=== PATIENT | female | born 1950 | race Caucasian/White ===

== ENCOUNTER 2023-03-18 13:20 | Outpatient (REF) | payer MEDICARE, BC, SELFPAY | END 2023-03-18 13:21 | disposition home or self-care (01) | LOC: NCHCN 13:20 | PROVIDERS: PCP Family Medicine; Visit Provider Family Medicine | DX: R39.9 Unspecified symptoms and signs involving the genitourinary system (principal) | CPT/HCPCS: 87086 ==

== ENCOUNTER 2024-05-14 10:58 | Outpatient (REF) | payer MEDICARE, BC, SELFPAY ==
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
--- OUTSIDE RECORDS SUMMARY | 2024-05-14 11:09 | XMS_ITS | Clinical Summary ---
Author Organization [facility] Address [address] [place] [address] Care Team Providers Care Pasting Inspector Name Role Phone Pema Antoine MD Primary Care Provider [phone] Allergies Active Allergy Reactions Criticality Noted Date Comments Latex Rash 07/08/2014 Latex, Natural Rubber 07/04/2010 rash Medications Medication Sig Dispensed Refills Start Date End Date Status IBUPROFEN (ADVIL ORAL) Take by mouth. Active aspirin 81 mg EC tablet Take 81 mg by mouth daily. Active Carboxymethylcellulos e Sodium (THERA TEARS) 0.25 % Drop Apply 1 Drop to eye 4 times daily. Active DOCOSAHEXANOIC ACID/EPA (FISH OIL ORAL) Take 1 Cap by mouth daily. Active Lutein 20 mg capsule Take 20 mg by mouth daily. Active desoximetasone (TOPICORT) 0.25 % cream Apply topically 2 times daily. 30 g 11 06/04/2014 Active doxycycline (VIBRAMYCIN) 50 mg capsule Take 50 mg by mouth every 48 hours. 03/16/2022 Active metoprolol SUCCinate (TOPROL-XL) 50 mg tablet Take 50 mg by mouth daily. 02/28/2022 Active simvastatin (ZOCOR) 80 mg tablet Take 80 mg by mouth daily. 02/23/2022 Active losartan (COZAAR) 100 mg tablet Take 100 mg by mouth daily. 01/29/2022 Active Active Problems Patient Care Coordination No te Formatting of this note migh t be different from the original. Mail returned due to temporarily away Problem Noted Date Diagnosed Date Macular degeneration, right eye 07/11/2015 Overview: Dr. Andrew Tang [place] [phone] Hypertension 01/30/2012 Overview: At goal Hyperlipidemia 07/27/2011 Overview: At goal Immunizations Name Administration Dates Next Due Influenza Vaccine Quad (AFLURIA) PF 0.5 ml IM (3 yrs+) 07/11/2015 Pneumococcal Conjugate Vacci ne 13-Valent (PCV13) (PREVNAR-13) 0.5 mL IM (6 wks+) 07/11/2015 Pneumococcal Polysaccharide (PPSV23) Vaccine (PNEUMOVAX-23) =>2YO SQ/IM 07/27/2011 Td 03/08/2003 Tdap Vaccine =>7YO IM 07/01/2013 Zostavax (Zoster Vaccine, Live) SQ 06/05/2012 Surgical History Surgery Date Site/Laterality Comments CATARACT REMOVAL WITH IMPLANT 06/2011 right eye KNEE ARTHROSCOPY Arthroscopy, knee INTRAOCULAR LENS PROSTHESIS INSERTION CATARACT REMOVAL Medical History Medical History Date Comments Hypertension Cataract Family History Medical History Relation Comments Coronary Artery Disease Brother Coronary Artery Disease Father Heart Disease Father Breast Cancer Maternal Grandmother Cataract Mother *Other(comment) Sister Cancer Sister colon Relation Status Comments Brother Father Maternal Grandmother Mother Sister Social History Tobacco Use Types Packs/Day Years Used Date Smoking Tobacco: Former Cigarettes 1.5 20 1 - 07/11/1987 Smokeless Tobacco: Never Tobacco Cessation:Counseling Given: Not Answered Alcohol Use Standard Drinks/Week Comments Yes 6 (1 standard drink = 0.6 oz pur e alcohol) Interpersonal Safety Answer Date Record ed Physically Hurt Never 05/01/2020 Verbally Threaten Not on file 05/01/2020 Sex and Gender Information Value Date Recorded Sex Assigned at Not on file Gender Identity Not on file Sexual Orientation Not on file Obstetrics History Last Filed Vital Signs Vital Sign Reading Time Taken Comments Blood Pressure 150/82 03/31/2022 1504 EDT Pulse 111 03/31/2022 1504 EDT Temperature 36.2 ??C (97.1 ??F) 03/31/2022 1504 EDT Respiratory Rate 20 03/31/2022 1504 EDT Oxygen Saturation 96% 03/31/2022 1504 EDT Inhaled Oxygen Concentration - - Weight 62.1 kg (137 lb) 03/14/2021 1009 EDT Height 162.6 cm (5' 4) 03/14/2021 1009 EDT Body Mass Index 23.52 03/14/2021 1009 EDT Plan of Treatment Health Maintenance Due Date Last Done Comments Hepatitis C Screen 1950 RSV Immunization ( o r 60+ Years) (1 - 1-dose 60+ series) 2008 Fall Risk Screening 07/11/2016 07/11/2015 Creatinine (Kidney Test) 08/17/2017 08/17/2016 COVID-19 Vaccine (2022-2 4 season) 2023 Colonoscopy (Colon Cancer Screening) 07/03/2023 07/03/2018, 07/03/2018, 06/28/2015, Additional history exists Goals Goal Patient Goal Type Associated Problems Recent Progress Patient-Stated? Author Blood Pressure < 140/90 Blood Pressure 150/82(03/31 15:04 EDT) No Velma Mae MD Blood Pressure < 140/90 Blood Pressure Hypertension 150/82(03/31 15:04 EDT) No Velma Mae MD LDL < 130 Result Component Hyperlipidemia No Velma Mae MD Procedures Procedure Name Priority Date/Time Associated Diagnosis Comments COLONOSCOPY PROCEDURE Routine 07/03/2018 COMPREHENSIVE METABOLIC PANEL (CMP) Routine 08/17/2016 from Last 3 Months or Most Recently Relevant to Health Maintenance Results * COLONOSCOPY PROCEDURE (07/03/2018) Colonoscopy [facility] Colonoscopy, External Diminutive sigmoid polyp [facility] Comment:pathology report-tub ular adenoma Anatomical Region Laterality Modality Endoscopy Historical Provider GI PROCEDURE GRISEL LIGHT * COMPREHENSIVE METABOLIC PANEL (CMP) (08/17/2016) GFR, Calculated, External 65 EXTERNAL LAB Glucose, Serum, External 101 EXTERNAL LAB Albumin, External 4.3 EXTERNAL LAB Total Alkaline Phosphatase, External 86 EXTERNAL LAB ALT, External 14 EXTERNAL LAB AST, External 25 EXTERNAL LAB BUN, External 41 EXTERNAL LAB Calculated Calcium, External EXTERNAL LAB Calcium, External 9.9 EXTERNAL LAB Chloride, External 104 EXTERNAL LAB CO2, External 27 EXTERNAL LAB Creatinine, External 1.02 EXTERNAL LAB Fasting?, External EXTERNAL LAB Potassium, External 4.7 EXTERNAL LAB Sodium, External 140 EXTERNAL LAB Total Protein, External 7.0 EXTERNAL LAB Bilirubin, Total, External 1.3 EXTERNAL LAB Blood specimen (specimen) 08/17/2016 Historical Provider CHEMISTRY & BLOOD GAS ORDERABLES EXTERNAL LAB from Last 3 Months or Most Recently Relevant to Health Maintenance Nury Roberts A Personal/Family Self 1950 [address] [place] [address] [email or web address] [place] [address] Nury Roberts A Personal/Family Self 1950 [address] [facility] [[email or web address]] [place] [address] Nury Roberts A Personal/Family Self 1950 [address] [place] [address] Nury Roberts Cecy Personal/Family Self 1950 [address] [place] [address] Care Teams Pasting Inspector Relationship Specialty Start Date End Date Pema Antoine MD [address] [place] [address] PCP - General 07/04/22
--- OUTSIDE RECORDS SUMMARY | 2024-05-14 11:10 | XMS_ITS | Referral Summary ---
Author Organization [facility] Address [address] [place] [address] Care Team Providers Care Verification Lead Name Role Phone Pema Antoine MD Primary Care Provider [phone] Allergies Active Allergy Reactions Criticality Noted Date [...] right eye 07/11/2015 Overview: Dr. Andrew Tang [place] [phone] Hypertension 01/30/2012 Overview: At goal Hyperlipidemia 07/27/2011 Overview: At goal Immunizations Name Administration Dates Next Due Influenza Vaccine Quad (AFLURIA) PF 0.5 ml IM (3 yrs+) 07/11/2015 Pneumococcal Conjugate Vacci ne 13-Valent (PCV13) (PREVNAR-13) 0.5 mL IM (6 wks+) 07/11/2015 Pneumococcal Polysaccharide (PPSV23) Vaccine (PNEUMOVAX-23) =>2YO SQ/IM 07/27/2011 Td 03/08/2003 Tdap Vaccine =>7YO IM 07/01/2013 Zostavax (Zoster Vaccine, Live) SQ 06/05/2012 Social History Tobacco Use Types Packs/Day Years [...] on file Sexual Orientation Not on file Last Filed Vital Signs Vital Sign Reading [...] Body Mass Index 23.52 03/14/2021 1009 EDT Functional Status Functional Status Response Date of Assess ment Because of a physical, menta l, or emotional condition, does this person have difficulty doing errands alone such as visiting a doctor's office or shopping? No 07/11/2015 Cognitive Status Response Date of Assessm ent Because of a physical, menta l, or emotional condition, does this person have serious difficulty concentrating, remembering, or making decisions? No 07/11/2015 Plan of Treatment Not on file Goals Goal Patient Goal Type Associated Problems [...] Health Maintenance Results * COLONOSCOPY PROCEDURE (07/03/2018) Pathologist [facility] Colonoscopy [facility] Colonoscopy, External Diminutive sigmoid polyp [facility] Comment:pathology report-tub ular adenoma Anatomical Region Laterality Modality Endoscopy Historical Provider GI PROCEDURE GRISEL LIGHT * COMPREHENSIVE METABOLIC PANEL (CMP) (08/17/2016) Pathologist [facility] GFR, Calculated, External 65 EXTERNAL LAB Glucose, [...] or Most Recently Relevant to Health Maintenance Armando, Nury A Personal/Family Self [address] [facility] [address] [place] [address] Armando, Nury A Personal/Family Self [address] [facility] [address] [place] [address] Armando, Nury A Personal/Family Self 1950 [address] [place] [address] Care Teams Verification Lead Relationship Specialty Start Date End Date Pema Antoine MD [address] [place] [address] (work) [facility] - General 07/04/22
--- OUTSIDE RECORDS SUMMARY | 2024-05-14 11:10 | XMS_ITS | Encounter Summary ---
Author Organization [facility] Address [address] [place] [address] Care Team Providers Care County Nurse Name Role Phone Rusty Malik MD Primary Care Provider [phone] Unknown, Provider Primary Care Provider [phone] Encounter Details Date Type Department Care Team (Late st Contact Info) Description 07/03/2018 Historical Results Only [facility] - Main [address] [phone] Jaun Patton MD Social History Tobacco Use Types Packs/Day Years Used Date Smoking Tobacco: Former Cigarettes 1.5 20 1 - 07/11/1987 Alcohol Use Standard Drinks/Week Comments Yes 6 (1 standard drink = 0.6 oz pur e alcohol) Sex and Gender Information Value Date Recorded Sex Assigned at Not on file Gender Identity Not on file Sexual Orientation Not on file documented as of this encounter Functional Status Functional Status Response Date of [...] concentrating, remembering, or making decisions? No 07/11/2015 documented as of this encounter Plan of Treatment Not on file documented as of this encounter Goals Goal Patient Goal Type Associated Problems Recent Progress Patient-Stated? Author Blood Pressure < 140/90 Blood Pressure 150/82(03/31 15:04 EDT) No Velma Mae MD Blood Pressure < 140/90 Blood Pressure Hypertension 150/82(03/31 15:04 EDT) No Velma Mae MD LDL < 130 Result Component Hyperlipidemia No Velma Mae MD documented as of this encounter Procedures Procedure Name Priority Date/Time Associated Diagnosis Comments SURGICAL PATHOLOGY Routine 07/03/2018 11 :58 EDT documented in this encounter Results * SURGICAL PATHOLOGY (07/03/2018 11:58 EDT) 07/03/2018 11:5 8 EDT 07/03/2018 11:58 EDT Narrative [facility] - 07/04/2018 12:28 EDT ----- ------- Name: NURY KAMARA ?: [birth year] ?Age/Sex: 68/F ?Unit#: [id number] ? Loc: END ? Status: DEP CLI ?? Reg Date: 07/03/18 ? Pt.Phone Number: ? ----- ------- Specimen: [id number] ? STATUS: SOUT ?Spec Date:07/03/18 ? Physician Copies: ?Jaun Patton MD ?? Tissues: A ?? Endoscopy specimen (SIGMOID COLON) ? Velma Mae ?Stoney Gutierrez MD CPT: 71435 ?? Units: ??1 ?FINAL DIAGNOSIS ? SIGMOID COLON, POLYP, BIOPSY; ? -Tubular adenoma ? GROSS DESCRIPTION ? Received in formalin labeled with the patients name and sigmoid polyp is a ? single mucosal tissue fragment measuring 0.3, e. s. 1 NM ?? PREOP DX/CLINICAL HISTORY ?HX POLYPS, + FAMILY HX Signed ____(signature on file)____ Nissa Escobar M.D. 07/04/18 ? By the signature above, the attending physician certifies that he/she has personally conducted a gross and/or microscopic examination of the described specimens and rendered or confirmed the above diagnosis. Test Performed by [facility], [address] [address] Machine Long Goods Helper: Justyna Altamirano MD PHD ----- ------- Jaun Patton MD PATHOLOGY ORDERABLES [facility] documented in this encounter Visit Diagnoses Not on filedocumented in this encounter Care Teams County Nurse Relationship Specialty Start Date End Date Rusty Malik MD PCP - General 12/05/16 08/28/18 Unknown, Provider, PCP - General 08/29/18 07/03/22 documented as of this encounter
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
--- OUTSIDE RECORDS SUMMARY | 2024-05-14 11:10 | XMS_ITS | Encounter Summary ---
Author Organization [facility] Address [address] [place] [address] Care Team Providers Care Birth Attendant Name Role Phone Rusty Malik MD Primary Care Provider [phone] Reason for Visit * Reason Onset Date Comments Letter for School/Work 02/09/2017 Encounter Details Date Type Department Care Team (Late st Contact Info) Description 02/09/[address] [place] [address] [id number] Rusty Malik MD [facility] [place] [phone] Letter for School/Work Social History Tobacco Use Types Packs/Day Years [...] No 07/11/2015 documented as of this encounter Miscellaneous Notes * Telephone Encounter - Dyan Loja - 02/11/2017 1657 EDT Patient called and gave new address.Back in [place]. * Telephone Encounter - Dyan Loja - 02/09/2017 1017 EDT Reason for Call: Letter for School/Work Returned letter, stating temporarily away. Left message with update address. Any [facility] can take the information. Thanks. Dyan Loja 02/09/2017 10:17 documented in this encounter Plan of Treatment [...] documented as of this encounter Visit Diagnoses Not on filedocumented in this encounter Care Teams Birth Attendant Relationship Specialty Start Date End Date Rusty Malik MD PCP - General 12/05/16 08/28/18 documented as of this encounter
--- OUTSIDE RECORDS SUMMARY | 2024-05-14 11:10 | XMS_ITS | Encounter Summary ---
Author Organization [facility] Address [address] [place] [address] Care Team Providers Care Brake Coupler Dinkey Name Role Phone Velma Mae MD Primary Care Provid er Encounter Details Date Type Department Care Team (Late st Contact Info) Description 07/14/2015 Results Only [address] [id number] Velma Mae MD [address] [place] [phone] Social History Tobacco Use Types Packs/Day Years [...] Procedure Name Priority Date/Time Associated Diagnosis Comments BASIC METABOLIC PANEL ([facility]) Routine 07/14/2015 8:18 EDT LIPID PROFILE (INCLUDES CHOLESTEROL, TRIGLYCERIDES, HDL, LDL) Routine 07/14/2015 8:18 EDT documented in this encounter Results * (ABNORMAL) LIPID PROFILE (INCLUDES CHOLESTEROL, TRIGLYCERIDES, HDL, LDL) (07/14/2015 8:18 EDT) Triglycerides, External 106 35 - 150 mg/dL [facility] Cholesterol, External 212(H) 120 - 200 mg/dL [facility] Chol/HDL Ratio, External 3.8 0 - 4.5 [facility] Comment: DESIRABLE RATIO IS LESS THAN 4.1 PATIENTS ARE CONSIDERED AT RISK: WOMEN RATIO >5 MEN RATIO >6 Fasting?, External Yes [facility] HDL, External 55 40 - 60 mg/dL [facility] LDL, External 136(H) 60 - 100 mg/dL [facility] Non HDL Chol, External 157 mg/dl [facility] Comment: Desirable: ?Less than 130 Borderline High: ??130-159 High: ? 160-189 Very High: ?Greater than or equal to 190 07/14/2015 8:18 EDT 07/14/2015 8:19 EDT Narrative [facility] - 07/14/2015 10:21 EDT Does PT Have a Latex Allergy? YES Velma Mae MD CHEMISTRY & BLOOD GAS ORDERABLES [facility] * (ABNORMAL) BASIC METABOLIC PANEL ([facility]) (07/14/2015 8:18 EDT) Bun, External 29(H) 7 - 18 mg/dL [facility] Calcium, External 8.9 8.5 - 10.1 mg/dL [facility] Chloride, External 107 98 - 107 mEq/L [facility] CO2, External 30 21 - 32 mEq/L [facility] Creatinine, External 0.94 0.5 - 1.3 mg/dL [facility] GFR, Kahlil/Est., External 59 [facility] Comment: Stage 3: Moderate renal impairment is defined as GFR 30-59 Multiply result by 1.210 for patients. eGFR calculated using the IDMS-traceable MDRD Study Equation. ??(effective 08/02/2014) Glucose, Serum, External 94 70 - 100 mg/dL [facility] Potassium, External 4.5 3.5 - 5.0 mEq/L [facility] Sodium, External 142 135 - 145 mEq/L [facility] 07/14/2015 8:18 EDT 07/14/2015 8:19 EDT Narrative [facility] - 07/14/2015 10:21 EDT Does PT Have a Latex Allergy? YES Velma Mae MD CHEMISTRY & BLOOD GAS ORDERABLES [facility] documented in this encounter Visit Diagnoses Not on filedocumented in this encounter Care Teams Brake Coupler Dinkey Relationship Specialty Start Date End Date Velma Mae MD PCP - General 06/08/15 12/04/16 documented as of this encounter
--- OUTSIDE RECORDS SUMMARY | 2024-05-14 11:10 | XMS_ITS | Encounter Summary ---
Author Organization [facility] Address [address] [place] [address] Care Team Providers Care Wood Heel Flap Trimmer Name Role Phone Velma Mae MD Primary Care Provid er Reason for Visit * Reason Comments Other Encounter Details Date Type Department Care Team (Late st Contact Info) Description 06/23/[address] [address] Shaun Valero MD Other Social History Tobacco Use Types Packs/Day Years Used Date Smoking Tobacco: Former Alcohol Use Standard Drinks/Week Comments Yes 1 (1 standard drink = 0.6 oz pur e alcohol) Sex and Gender Information Value Date Recorded Sex Assigned at Not on file Gender Identity Not on file Sexual Orientation Not on file documented as of this encounter Ordered Prescriptions Prescription Sig Dispensed Refills Start Date End Da te metoprolol XL (TOPROL-XL) 25 mg tablet TAKE 1 TABLET BY MOUTH EVERY DAY 90 Tab 0 06/23/2015 09/13/2015 simvastatin (ZOCOR) 40 mg tablet TAKE 1 TABLET BY MOUTH EVERY EVENING 90 Tab 0 06/23/2015 09/13/2015 documented in this encounter Miscellaneous Notes * Telephone Encounter - Sammi Andujar RN - 06/23/2015 0931 EDT Medication(s) Requested: zocor & metoprolol Pharmacy: [facility] Last Refill Date: 06/04/14 Last Visit Date: 06/04/15 Labs done @ this visit. Next Visit Date: 07/11/2015 Is patient out of medication? Unknown Will be seeing new Dr at upcoming appt. Refill done for 90/ 0 refills Sammi Andujar RN 06/23/2015 9:31 documented in this encounter Plan of Treatment Not on file documented as of this encounter Visit Diagnoses Not on filedocumented in this encounter Discontinued Medications Medication Sig Discontinue Reason Start Date End Da te simvastatin (ZOCOR) 40 mg tablet Take 1 Tab by mouth every evening. Reorder 06/04/2014 06/23/2015 metoprolol XL (TOPROL-XL) 25 mg tabletIndications:Hyperte nsive disorder Take 1 Tab by mouth daily. Reorder 06/04/2014 06/23/2015 documented as of this encounter Care Teams Wood Heel Flap Trimmer Relationship Specialty Start Date End Date Velma Mae MD PCP - General 06/08/15 12/04/16 documented as of this encounter
--- OUTSIDE RECORDS SUMMARY | 2024-05-14 11:10 | XMS_ITS | Encounter Summary ---
Author Organization [facility] Address [address] [place] [address] Care Team Providers Care Shoelace Tipping Machine Operator Name Role Phone Rusty Malik MD Primary Care Provider [phone] Encounter Details Date Type Department Care Team (Latest Contact Info) Description 07/03/2018 9:37 EDT - 07/03/2018 23:[address] [facility] [address] [place] [address] Unknown, Provider, Discharge Disposition: Home or Self Care Social History Tobacco Use Types Packs/Day Years [...] No 07/11/2015 documented as of this encounter Medications at Time of Discharge Medication Sig Dispensed Refills Start Date End Date aspirin 81 mg EC tablet Take 81 mg by mouth daily. Carboxymethylcellulose Sodium (THERA TEARS) 0.25 % Drop Apply 1 Drop to eye 4 times daily. desoximetasone (TOPICORT) 0.25 % cream Apply topically 2 times daily. 30 g 11 06/04/2014 DOCOSAHEXANOIC ACID/EPA (FISH OIL ORAL) Take 1 Cap by mouth daily. IBUPROFEN (ADVIL ORAL) Take by mouth. Lutein 20 mg capsule Take 20 mg by mouth daily. DOXYCYCLINE MONOHYDRATE ORAL Take 50 mg by mouth every 48 hours. 4 gtts both eyes 4xs a day 03/20/2022 metoprolol XL (TOPROL-XL) 25 mg tablet TAKE 1 TABLET BY MOUTH EVERY DAY 90 Tab 3 09/13/2015 03/20/2022 simvastatin (ZOCOR) 40 mg tablet TAKE 1 TABLET BY MOUTH EVERY EVENING 90 Tab 3 09/13/2015 03/20/2022 documented as of this encounter Discharge Disposition Disposition Code Departure Means Destination Home or Self Penitentiary documented in this encounter Plan of Treatment Not on file documented as of this encounter Goals Goal Patient Goal Type Associated Problems Recent Progress Patient-Stated? Author Blood Pressure < 140/90 Blood Pressure 150/82(03/31 15:04 EDT) No Velam Mae MD Blood Pressure < 140/90 Blood Pressure Hypertension 150/82(03/31 15:04 EDT) No Velma Mae MD LDL < 130 Result Component Hyperlipidemia No Velma Mae MD documented as of this encounter Visit Diagnoses Not on filedocumented in this encounter Care Teams Shoelace Tipping Machine Operator Relationship Specialty Start Date End Date Rusty Malik MD PCP - General 12/05/16 08/28/18 documented as of this encounter
--- OUTSIDE RECORDS SUMMARY | 2024-05-14 11:10 | XMS_ITS | Encounter Summary ---
Author Organization [facility] Address [address] [place] [address] Care Team Providers Care Textile Stylist Name Role Phone Rusty Malik MD Primary Care Provider [phone] Encounter Details Date Type Department Care Team (Late st Contact Info) Description 04/01/[address] [address] Christiano Epstein LPN [address] [place] [address] Social History Tobacco Use Types Packs/Day Years [...] Procedure Name Priority Date/Time Associated Diagnosis Comments MAMMOGRAPHY, EXTERNAL Routine 03/31/2018 documented in this encounter Results * MAMMOGRAPHY, EXTERNAL (03/31/2018) Mammography, External Bilateral Breast-Catego ry 1-Negative. [facility] Anatomical Region Laterality Modality Other Historical Provider MD [facility] OTHER [facility]AGING ORDERABLES documented in this encounter Visit Diagnoses Not on filedocumented in this encounter Care Teams Textile Stylist Relationship Specialty Start Date End Date Rusty Malik MD PCP - General 12/05/16 08/28/18 documented as of this encounter
--- OUTSIDE RECORDS SUMMARY | 2024-05-14 11:10 | XMS_ITS | Encounter Summary ---
Author Organization [facility] Address [address] [place] [address] Care Team Providers Care Senior Dentist Name Role Phone Rusty Malik MD Primary Care Provider [phone] Unknown, Provider Primary Care Provider [phone] Pema Antoine MD Primary Care Provider [phone] Reason for Visit * Reason Onset Date Comments Medications Refill 12/22/2016 Encounter Details Date Type Department Care Team (Late st Contact Info) Description 12/22/[address] [address] Velma Mae MD [address] [place] [phone] Medications Refill Social History Tobacco Use Types Packs/Day Years [...] * Telephone Encounter - Dyan Loja - 01/04/2017 1304 EDT Patient called back and is all set. She had a physical and her prescription filled in [place]. She was seen by Dr. Chacko. Patient will have results sent to our office. * Telephone Encounter - Nimco Vegas RN - 01/04/2017 0906 EDT Left message for patient to call back to schedule an annual physical exam. * Telephone Encounter - Alysia Wallace RN - 12/28/2016 1614 EDT Message again left to call back to schedule an appointment so this medication can be refilled. * Telephone Encounter - Alysia Wallace RN - 12/24/2016 0935 EDT Medication(s) Requested: Simvastatin (Zocor) 40 mg tablet Preferred Pharmacy: [facility] - [place], [place] Is patient out of medication? Unknown Last Refill Date: 09/13/15 - 90 tabs with 3 refills Last Visit Date with Ordering Provider: 07/11/15 Next Visit Date as it relates to the requested medication: None scheduled Last Related Labs Date: 07/14/15 - Lipid Profile Message left to call back to schedule an appointment. Alysia Wallace RN 12/24/2016 9:35 documented in this encounter Plan of Treatment [...] on filedocumented in this encounter Care Teams Senior Dentist Relationship Specialty Start Date End Date Rusty Malik MD PCP - General 12/05/16 08/28/18 Unknown, ProviderMD PCP - General 08/29/18 07/03/22 Pema Antoine MD [address] [place] [id number] PCP - General 07/04/22 documented as of this encounter
--- OUTSIDE RECORDS SUMMARY | 2024-05-14 11:10 | XMS_ITS | Encounter Summary ---
Author Organization [facility] Address [address] [place] [address] Care Team Providers Care Portable Track Line Marker Name Role Phone Shaun Valero MD Primary Care Provider Unav ailable Reason for Visit * Reason Onset Date Comments Medications Refill 06/25/2013 Encounter Details Date Type Department Care Team (Late st Contact Info) Description 06/25/[address] [address] Shaun Valero MD Medications Refill Social History Tobacco Use Types Packs/Day Years Used Date Smoking Tobacco: Former Alcohol Use Standard Drinks/Week Comments Yes 8.3 (1 standard drink = 0.6 oz p ure alcohol) Sex and Gender Information Value Date Recorded Sex Assigned at Not on file Gender Identity Not on file Sexual Orientation Not on file documented as of this encounter Ordered Prescriptions Prescription Sig Dispensed Refills Start Date End Da te simvastatin (ZOCOR) 40 mg tablet Take 1 Tab by mouth every evening. 90 Tab 0 06/25/2013 07/01/2013 documented in this encounter Miscellaneous Notes * Telephone Encounter - Alvina Candelaria RN - 06/25/2013 1036 EDT Refilled x 90 days. * Telephone Encounter - Carissa Verde - 06/25/2013 1026 EDT Pt is leaving for [place] around the middle of July, she is asking for rx just enough to get her through until she leaves. She has enough for 5 days. She did make an appt for 07/01 for f/u documented in this encounter Plan of Treatment Not on file documented as of this encounter Visit Diagnoses Not on filedocumented in this encounter Discontinued Medications Medication Sig Discontinue Reason Start Date End Da te simvastatin (ZOCOR) 40 mg tablet Take 1 Tab by mouth every evening. Reorder 01/30/2012 06/25/2013 documented as of this encounter Care Teams Portable Track Line Marker Relationship Specialty Start Date End Date Shaun Valero MD PCP - General 08/16/09 06/07/15 documented as of this encounter
--- OUTSIDE RECORDS SUMMARY | 2024-05-14 11:10 | XMS_ITS | Encounter Summary ---
Author Organization [facility] Address [address] [place] [address] Care Team Providers Care Senior Information Security Consultant Name Role Phone Unknown, Provider Primary Care Provider Reason for Visit * Reason Comments Follow-up Encounter Details Date Type Department Care Team (Late st Contact Info) Description 06/15/2021 14:45 EDT Office Visit [facility] [address] [place], [place] [id number] Sourav Nathan MD [address] [facility] [address] [place] [address] Right carpal tunnel syndrome (Primary Dx); Dupuytren's contracture of right hand Social History Tobacco Use Types Packs/Day Years [...] on file Sexual Orientation Not on file COVID-19 Exposure Response Date Recorded In the last month, have you been in contact with someone who was confirmed or suspected to have Coronavirus / COVID-19? No / Unsure 06/15/2021 14:40 EDT documented as of this encounter Last Filed Vital Signs Vital Sign Reading Time Taken Comments Blood Pressure - - Pulse - - Temperature 36.8 ??C (98.2 ??F) 06/15/2021 1442 EDT Respiratory Rate - - Oxygen Saturation - - Inhaled Oxygen Concentration - - Weight - [...] No 07/11/2015 documented as of this encounter Progress Notes * Sourav Nathan MD - 06/15/2021 1445 EDTAssociated Order(s): Hand/Upper Extremity Injection/Arthrocentesis: R small finger Post-Procedure Diagnose(s): Dupuytren's contracture of right hand Patient presents in clinic today for follow up of her right hand dupuytren's contracture. She was seen on 03/14/21 for pain and received a carpal tunnel injection to her right hand. She also had an aponeurotomy in the same visit without complication. She c.o her index, middle and ring fingers waking her at night feeling like cardboard. She cannotopen jars, has aches and pains in the evening. Orthopaedic Surgery Office Note Nury Roberts [phone] Subjective. Patient returns wishing to have a touch up to the right small finger Dupuytren's aponeurotomy that she had earlier this year and wishing to discuss treatment options regarding some carpaltunnel that seems to bother after her 2- hour motorcycle rides. She is also an avid golfer notes that she wakes up with the thumb index and long finger feeling a bit like cardboard. She is going down to [place] in less than a month. She has not actually tried any braces she did have a carpal tunnel injection back in February when we did her Dupuytren's release Patient Active Problem List Diagnosis ??? Hyperlipidemia ??? Hypertension ??? Macular degeneration, right eye Current Outpatient Medications Medication ??? aspirin 81 mg EC tablet ??? Carboxymethylcellulose Sodium (THERA TEARS) 0.25 % Drop ??? desoximetasone (TOPICORT) 0.25 % cream ??? DOCOSAHEXANOIC ACID/EPA (FISH OIL ORAL) ??? DOXYCYCLINE MONOHYDRATE ORAL ??? IBUPROFEN (ADVIL ORAL) ??? Lutein 20 mg capsule ??? metoprolol XL (TOPROL-XL) 25 mg tablet ??? simvastatin (ZOCOR) 40 mg tablet No current facility-administered medications for this visit. Allergies Allergen Reactions ??? Latex Rash ??? Latex, Natural Rubber rash A 10 point ROS was completed. All are negative except noted in HPI.The past medical, family and social history have been reviewed in the patient chart. I spent time preparing in advance of the visit today, which included obtaining and reviewing prior history and notes from the primary care providerand/or referring providers, as well as reviewing any relevant prior imaging and tests, which I alsoindependently interpreted today Objective: Patient Vitals for the past 24 hrs: Temp 06/15/21 1442 36.8 ??C (98.2 ??F) On physical exam, the patient is found to be a pleasant and cooperative female who appears to be alert and oriented x 3. She is well-developed, well-nourished and in no significant distress. Breathing is unlabored. Skin is warm, pink and dry to inspection and palpation. Neurovascularly intact with good capillary refill. Examination shows there is a ulnar rope that has reformed is a cord between the palmar digital and PIP flexion crease of the small finger contributing to a 30 degree PIP contracture. Her provocative test for carpal tunnel however are negative here in the office today includingTinel's median nerve compression Durkan's wrist flexion and wrist extension test. She has no significant thenar wasting or atrophy. Assessment/Plan: Since her carpal tunnel cannot be provoked at this point it does not seem severe enough to warrant surgery I do think a night splint however would help since that seems to be relatedto her symptoms just at night and fairly mild. This was set up for her today and for the small finger we consented her for a aponeurotomy. Procedure: Hand/Upper Extremity Injection/Arthrocentesis: R small finger for Dupuytren's contracture on 06/15/2021 14:45 Medications: 40 mg triamcinolone acetonide 40 mg/mL The patient was informed of treatment options for Dupuytren's including observation, collagenase injection, surgical resection, apponeurotomy, amputation, and skin grafting. Risks of apponeurotomy specifically including infection, tendon rupture, stiffness, skin tear, recurrence, incomplete release, nerve injury, tendon injury, and wound dehiscence were reviewed with the patient. A timeout was performed a thorough skin prep with ChloraPrep was performed the hand was marked over the palpable cords and symptomatic regions away from the flexion creases for release. The marked areas were treated with Marcaine and lidocaine skin wheal injections then 25-gauge needle transections through the pathologic cord and manipulations to straighten the joint. A few drops of Kenalog were injected into allof the intact apponeurotomy portal sites to minimize recurrence and scarring. Band-Aids were applied. The patient was advised to avoid any heavy activities for 48 hours to rest elevate ice and take anti-inflammatories. The patient was instructed to call us for any concerns with redness drainage increasing pain or swelling. Patient tolerated procedure well. One quarter of a 1 mL 40 mg Kenalog injected into the 2 sites where the release was performed completely correcting the PIP contracture. Shewas given a sterile Band-Aid over the digit and will follow up in the spring when she returns from [facility]. Sourav Nathan MD 06/15/21 16:23 documented in this encounter Plan of Treatment [...] Procedure Name Priority Date/Time Associated Diagnosis Comments HAND/UPPER EXTREMITY INJECTION/ARTHROCEN TESIS Routine 06/15/2021 14:45 EDT Dupuytren's contracture of right hand documented in this encounter Results * [place] INJECTION ENZYME PALMAR FASCIAL CORD (06/15/2021 14:45 EDT) Narrative [facility] POINT [facility] CARE - 06/15/2021 14:45 EDT Sourav Nathan MD ? 06/15/2021 16:28 Hand/Upper Extremity Injection/Arthrocentesis: R small finger for Dupuytren's contracture on 06/15/2021 14:45 Medications: 40 mg triamcinolone acetonide 40 mg/mL Sourav Nathan MD PROCEDURE /MINOR SURGICAL ORDERABLES [facility] POINT OF CARE documented in this encounter Visit Diagnoses Diagnosis Right carpal tunnel syndrome- Primary Carpal tunnel syndrome Dupuytren's contracture of right hand Contracture of palmar fascia documented in this encounter Administered Medications Inactive Administered Medications - up to 3 most recent administrations Medication Order MAR Action Action Date Dose Rate Site triamcinolone acetonide (KENALOG-40) injection 40 mg 40 mg, other, Once PRN Procedure, 1 dose, Starting on Connie 06/15/21 at 1445, Until Connie 06/15/21 at 1445, Routine Given 06/15/2021 14:45 EDT 40 mg documented in this encounter Care Teams Senior Information Security Consultant Relationship Specialty Start Date End Date Unknown, Provider, PCP - General 08/29/18 07/03/22 documented as of this encounter
--- OUTSIDE RECORDS SUMMARY | 2024-05-14 11:10 | XMS_ITS | Encounter Summary ---
Author Organization [facility] Address [address] [place] [address] Care Team Providers Care Hospital Security Officer Name Role Phone Rusty Malik MD Primary Care Provider [phone] Encounter Details Date Type Department Care Team (Late st Contact Info) Description 07/09/[address] [address] Christiano Epstein LPN [address] [place] [address] Social History Tobacco Use Types Packs/Day Years [...] Associated Diagnosis Comments COLONOSCOPY PROCEDURE Routine 07/03/2018 documented in this encounter Results * COLONOSCOPY PROCEDURE (07/03/2018) Colonoscopy [facility] Colonoscopy, External Diminutive sigmoid polyp [facility] Comment:pathology report-tub ular adenoma Anatomical Region Laterality Modality Endoscopy Historical Provider GI PROCEDURE GRISEL LIGHT documented in this encounter Visit Diagnoses Not on filedocumented in this encounter Care Teams Hospital Security Officer Relationship Specialty Start Date End Date Rusty Malik MD PCP - General 12/05/16 08/28/18 documented as of this encounter
--- OUTSIDE RECORDS SUMMARY | 2024-05-14 11:10 | XMS_ITS | Encounter Summary ---
Author Organization [facility] Address [address] [place] [address] Care Team Providers Care Tractor Mechanic Name Role Phone Velma Mae MD Primary Care Provid er Rusty Malik MD Primary Care Provider [phone] Unknown, Provider Primary Care Provider [phone] Encounter Details Date Type Department Care Team (Late st Contact Info) Description 06/30/2015 Historical Results Only [facility] - Main [address] [id number] Jaun Patton MD Social History Tobacco Use Types Packs/Day Years Used Date Smoking Tobacco: Former Alcohol Use Standard Drinks/Week Comments Yes 1 (1 standard drink = 0.6 oz pur e alcohol) Sex and Gender Information Value Date Recorded Sex Assigned at Not on file Gender Identity Not on file Sexual Orientation Not on file documented as of this encounter Plan of [...] Date/Time Associated Diagnosis Comments SURGICAL PATHOLOGY Routine 06/30/2015 documented in this encounter Results * SURGICAL PATHOLOGY (06/30/2015) 06/30/2015 06/30/2015 11: 26 EDT Narrative [facility] - 07/04/2015 12:58 EDT ----- ------- Name: NURY KAMARA ?: 46 ?Age/Sex: 68/F ?Unit#: [id number] ? Loc: END ? Status: DEP CLI ?? Reg Date: 06/30/15 ? Pt.Phone Number: ? ----- ------- Specimen: [id number] ? STATUS: SOUT ?Spec Date:06/30/15 ? Physician Copies: ?Jaun Patton MD ?? Tissues: A ?? Endoscopy specimen (PROXIMAL TRANSVERSE) ? Shaun Valero MD CPT: 41238 ?? Units: ??1 ?FINAL DIAGNOSIS ? Colon, proximal transverse, polyp, biopsy; ? - Sessile serrated adenoma. ? GROSS DESCRIPTION ? Received in formalin labeled with the patient's name and polyp cold snare ? proximal transverse is a single mucosal tissue fragment measuring 1.2 cm, e.s. ? 1. [place] ?? PREOP DX/CLINICAL HISTORY ?HISTORY OF POLYPS, FAMILY HISTORY OF COLON CANCER Signed ____(signature on file)____ Gina Vasquez MD 07/04/15 By the signature above, the attending physician certifies that he/she has personally conducted a gross and/or microscopic examination of the described specimens and rendered or confirmed the above diagnosis. Test Performed by [facility], [address] [place] [address] Shower Room Attendant: Justyna Altamirano MD PHD ----- ------- Jaun Patton MD PATHOLOGY ORDERABLES Performing Organization Address [facility]/State/[facility] Co de Phone Number [facility] documented in this encounter Visit Diagnoses Not on filedocumented in this encounter Care Teams Tractor Mechanic Relationship Specialty Start Date End Date Velma Mae MD PCP - General 06/08/15 12/04/16 Rusty Malik MD PCP - General 12/05/16 08/28/18 Unknown, Provider, PCP - General 08/29/18 07/03/22 documented as of this encounter
--- OUTSIDE RECORDS SUMMARY | 2024-05-14 11:10 | XMS_ITS | Encounter Summary ---
Author Organization [facility] Address [address] [place] [address] Care Team Providers Care Curriculum And Assessment Director Name Role Phone Shaun Valero MD Primary Care Provider Unav ailable Reason for Referral * Consult, Test and Treat (Routine) - Closed Specialty Diagnoses / Procedures Referred By Contac t Referred To Contact Diagnoses Strain of knee and leg, right Shaun Valero MD [address] [facility] [address] [address] Referral ID Status Reason Start Date Expiration Date V isits Requested Visits Authorized [id number] Closed Specialty Services Required 06/04/2014 1 1 Question Answer Reason for Request: right knee strain, incomplete extension * Laboratory Services (Routine) - Closed Specialty Diagnoses / Procedures Referred By Contac t Referred To Contact Diagnoses Hyperlipidemia Procedures LIPID PROFILE (INCLUDES CHOLESTEROL, TRIGLYCERIDES, HDL, LDL) Shaun Valero MD [address] [facility] [address] [place] [address] Referral ID Status Reason Start Date Expiration Date Visits Re quested Visits Authorized [id number] Closed 06/04/2014 1 1 * Laboratory Services (Routine) - Closed Specialty Diagnoses / Procedures Referred By Contac t Referred To Contact Diagnoses Hypertensive disorder Procedures BASIC METABOLIC PANEL Shaun Valero MD [address] [facility] [address] [place] [address] Referral ID Status Reason Start Date Expiration Date Visits Re quested Visits Authorized [id number] Closed 06/04/2014 1 1 * Laboratory Services (Routine) - Closed Specialty Diagnoses / Procedures Referred By Contac t Referred To Contact Diagnoses Hyperlipidemia Procedures ALT Shaun Valero MD [address] [facility] [address] [place] [address] Referral ID Status Reason Start Date Expiration Date Visits Re quested Visits Authorized [id number] Closed 06/04/2014 1 1 Reason for Visit * Reason Comments Knee Pain Encounter Details Date Type Department Care Team (Late st Contact Info) Description 06/04/2014 9:30 EDT Office [place] [address] [facility] [address] [place] [address] Shaun Valero MD Hypertensive disorder (Primary Dx); Hyperlipidemia; Strain of knee and leg, right Social History Tobacco Use Types Packs/Day Years [...] Sign Reading Time Taken Comments Blood Pressure 122/62 06/04/2014 0953 EDT Pulse 68 06/04/2014 0953 EDT Temperature - - Respiratory Rate - - Oxygen Saturation - - Inhaled Oxygen Concentration - - Weight - - Height - - Body Mass Index - - documented in this encounter Patient Instructions * Patient Instructions* Shaun Valero MD - 06/04/2014 9:57 EDT Treat leg lesion with topicort cream. See me again in 4-6 weeks if the lesion has not improved. documented in this encounter Ordered Prescriptions Prescription Sig Dispensed Refills Start Date End Da te desoximetasone (TOPICORT) 0.25 % cream Apply topically 2 times daily. 30 g 11 06/04/2014 simvastatin (ZOCOR) 40 mg tablet Take 1 Tab by mouth every evening. 90 Tab 4 06/04/2014 06/23/2015 metoprolol XL (TOPROL-XL) 25 mg tabletIndications:Hypert ensive disorder Take 1 Tab by mouth daily. 90 Tab 4 06/04/2014 06/23/2015 documented in this encounter Progress Notes * Shaun Valero MD - 06/04/2014 7792 EDT Subjective: Patient ID: Nury Roberts is an 64 y.o. female. Chief Complaint Patient presents with ??? Knee Pain HPI Vane is here with a number of concerns. She injured her right knee when she missed a step down about 3 weeks ago. Her knee has improved but she has discomfort with full extension which is still limited. She has little difficulty with walking when she has to straighten her leg. She does not feelthat her knee is unstable, but it has tended to lock at times. She also has a lesion lateral left calf present for about a month that was a welt that seemed to appear abruptly. She is not sure if this was some bite or injury and it has reduced in size to about half. It is not painful or itchy. Otherwise she has had a good year. She remains very physically active. She is due for lab tests and refill of medications. She denies lightheadedness, palpitation, chest pain, shortness of breath, abdominal discomfort. Patient Active Problem List Diagnosis ??? Hyperlipidemia ??? Hypertension Past Medical History Diagnosis Date ??? Hypertension ??? Cataract Current Outpatient Prescriptions on File Prior to Visit Medication Sig Dispense Refill ??? aspirin 81 mg EC tablet Take 81 mg by mouth daily. ??? Carboxymethylcellulose Sodium (THERA TEARS) 0.25 % Drop Apply 1 Drop to eye 4 times daily. ??? DOCOSAHEXANOIC ACID/EPA (FISH OIL ORAL) Take 1 Cap by mouth daily. ??? DOXYCYCLINE MONOHYDRATE ORAL Take 50 mg by mouth every 48 hours. 4 gtts both eyes 4xs a day ??? IBUPROFEN (ADVIL ORAL) Take by mouth. ??? Lutein 20 mg capsule Take 20 mg by mouth daily. No current facility-administered medications on file prior to visit. Allergies Allergen Reactions ??? Latex, Natural Rubber rash ??? No Known Drug Allergies Social History Substance Use Topics ??? Smoking status: Former Smoker ??? Smokeless tobacco: Not on file ??? Alcohol Use: 0.6 oz/week 1 Glasses of wine per week ROS - See HPI Objective: BP 122/62 Pulse 68 Physical Exam She appears well. Chest clear. Heart sounds normal. Right knee no effusion or ecchymosis. Extensionis limited to about 170??. There is slight discomfort with resisted flexion. Ligaments intact, negative drawer, negative Vinnie, negative Arabella. No calf tenderness. Lateral left calf there is a 8mm slightly raised, smooth erythematous dermatofibroma with no scaling or erosion. Assessment: Sprain right knee Probable dermatofibroma left calf Hypertension Hyperlipidemia Plan: Referral to physical therapy to assist with right knee range of motion and strengthening. I refilled her medication and ordered lab work. Reassurance regarding lesion left calf which does appear benign. I recommended that we check this in 6 weeks does not continue to reduce in size. She may apply Topicort cream that she uses for eczemaof her feet. Nury was seen today for knee pain. Diagnoses and associated orders for this visit: Hypertensive disorder - metoprolol XL (TOPROL-XL) 25 mg tablet; Take 1 Tab by mouth daily. - Basic Metabolic Panel Hyperlipidemia Comments: now - ALT - Lipid Profile (Includes Cholesterol, Triglycerides, HDL, LDL) Strain of knee and leg, right - Amb Consult/Follow Up Physical Therapy Other Orders - desoximetasone (TOPICORT) 0.25 % cream; Apply topically 2 times daily. - simvastatin (ZOCOR) 40 mg tablet; Take 1 Tab by mouth every evening. Return in about 1 year (around 06/04/2015) for oe-wellness. documented in this encounter Plan of Treatment Scheduled Orders Name Type Priority Associated Diagnoses Orde r Schedule ALT Lab Routine Hyperlipidemia Ordered: 06/04/2014 BASIC METABOLIC PANEL Lab Routine Hypertensive disorder Ordered: 06/04/2014 LIPID PROFILE (INCLUDES CHOLESTEROL, TRIGLYCERIDES, HDL, LDL) Lab Routine Hyperlipidemia Ordered: 06/04/2014 Scheduled Referrals Name Type Priority Associated Diagnoses Orde r Schedule AMB CONS/FOLLOW UP PHYSICAL THERAPY Outpatient Referral Routine Strain of knee and leg, right Ordered: 06/04/2014 documented as of this encounter Visit Diagnoses Diagnosis Hypertensive disorder- Primary Unspecified essential hypertension Hyperlipidemia Other and unspecified hyperlipidemia Strain of knee and leg, right Sprain and strain of unspecified site of knee and leg documented in this encounter Discontinued Medications Medication Sig Discontinue Reason Start Date End Da te metoprolol XL (TOPROL-XL) 25 mg tabletIndications:Hyperte nsive disorder Take 1 Tab by mouth daily. Reorder 11/03/2013 06/04/2014 simvastatin (ZOCOR) 40 mg tablet Take 1 Tab by mouth every evening. Reorder 07/01/2013 06/04/2014 documented as of this encounter Care Teams Curriculum And Assessment Director Relationship Specialty Start Date End Date Shaun Valero MD PCP - General 08/16/09 06/07/15 documented as of this encounter
--- OUTSIDE RECORDS SUMMARY | 2024-05-14 11:10 | XMS_ITS | Encounter Summary ---
Author Organization [facility] Address [address] [place] [address] Care Team Providers Care Centerless Grinder Name Role Phone Shaun Valero MD Primary Care Provider Unav ailable Reason for Referral * Radiology Services (Routine/Next Available) - Closed Specialty Diagnoses / Procedures Referred By Mo pardo Referred To Contact Diagnoses Breast cancer screening Procedures MA MAMMO SCREENING DIGITAL Shaun Valero MD [address] [place] [address] [address] [place] [id number] Referral ID Status Reason Start Date Expiration Date Visits Re quested Visits Authorized [id number] Closed 04/06/2015 1 1 Reason for Visit * Reason Onset Date Comments Orders (Non Pre-visit) 04/06/2015 Encounter Details Date Type Department Care Team (Late st Contact Info) Description 04/06/[address] [address] Shaun Valero MD Orders (Non Pre-visit) Social History Tobacco Use Types Packs/Day Years Used Date Smoking Tobacco: Former Alcohol Use Standard Drinks/Week Comments Yes 1 (1 standard drink = 0.6 oz pur e alcohol) Sex and Gender Information Value Date Recorded Sex Assigned at Not on file Gender Identity Not on file Sexual Orientation Not on file documented as of this encounter Miscellaneous Notes * Telephone Encounter - Nati Crocker - 04/06/2015 1247 EDT Mammogram order pended for signature. documented in this encounter Plan of Treatment Not on file documented as of this encounter Procedures Procedure Name Priority Date/Time Associated Diagnosis Comments MA MAMMO SCREENING DIGITAL Routine 04/14/2015 14:04 EDT Breast cancer screening documented in this encounter Results * MA MAMMO SCREENING DIGITAL (04/14/2015 14:04 EDT) Mammography, External CAT 1 EXTERNAL FACILITY Comment:BILATERAL- CAT 1- NE GATIVE Anatomical Region Laterality Modality Other Shaun Valero MD IMG MAMMOGRAPHY ORD ERABLES documented in this encounter Visit Diagnoses Diagnosis Breast cancer screening- Primary Breast screening, unspecified documented in this encounter Care Teams Centerless Grinder Relationship Specialty Start Date End Date Shaun Valero MD PCP - General 08/16/09 06/07/15 documented as of this encounter
--- OUTSIDE RECORDS SUMMARY | 2024-05-14 11:10 | XMS_ITS | Encounter Summary ---
Author Organization [facility] Address [address] [place] [address] Care Team Providers Care Ferryboat Operator Name Role Phone Unknown, Provider Primary Care Provider Reason for Visit * Reason Comments Pain Pain Encounter Details Date Type Department Care Team (Late st Contact Info) Description 03/14/2021 10:15 EDT Office Visit [facility] [address] [place], [place] [id number] Sourav Nathan MD [address] [facility] [address] [place] [address] Dupuytren's contracture of right hand (Primary Dx); Right carpal tunnel syndrome Social History Tobacco Use Types Packs/Day Years [...] have Coronavirus / COVID-19? No / Unsure 03/14/2021 10:08 EDT documented as of this encounter Last Filed Vital Signs Vital Sign Reading Time Taken Comments Blood Pressure - - Pulse - - Temperature 36.9 ??C (98.5 ??F) 03/14/2021 1009 EDT Respiratory Rate - - Oxygen Saturation - - Inhaled Oxygen Concentration - - Weight 62.1 kg (137 lb) 03/14/2021 1009 EDT Height 162.6 cm (5' 4) 03/14/2021 1009 EDT Body Mass Index 23.52 03/14/2021 1009 EDT documented in this encounter Functional Status Functional [...] Progress Notes * Sourav Nathan MD - 03/14/2021 1015 EDTAssociated Order(s): Hand/Upper Extremity Injection/Arthrocentesis: R carpal tunnel Post-Procedure Diagnose(s): Dupuytren's contracture of right hand Nury presents today for an evaluation of her pinky finger. No referrals, scans, or XR's.Ongoing since last fall, no injury/trauma. HX of injection in August to her pinky finger with ortho in [place]. The MD in [place] offered Ziaflex but she was unable to do so while taking care of her . She has numbness and pain in both hands although right is worse than left. CHIEF COMPLAINT: Right small finger contracture and numbness and tingling SUBJECTIVE: Nury Roberts is a 70 y.o. 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 She has considered [facility] in [place] want to know what options we would offer her here A 10-point review of systems has been reviewed from the new patient intake sheet and all are negative . The past medical, family and social history have been reviewed in the patient chart. I spent time preparing in advance of the visit today, which included obtaining and reviewing prior history and notes from the primary care provider and/or referring providers, as well as reviewing any relevant prior imaging and tests, which I also independently interpreted today Past Medical History: Diagnosis Date ??? Cataract ??? Hypertension Social History Tobacco Use ??? Smoking status: Former Smoker Packs/day: 1.50 Years: 20.00 Pack years: 30.00 Quit date: 07/11/1987 Years since quittin.6 ??? Smokeless tobacco: Never Used Substance Use Topics ??? Alcohol use: Yes Alcohol/week: 6.0 - 9.0 standard drinks Types: 6 - 9 Glasses of wine per week Past Surgical History: Procedure Laterality Date ??? CATARACT REMOVAL ??? CATARACT REMOVAL WITH IMPLANT 06/2011 right eye ??? INTRAOCULAR LENS PROSTHESIS INSERTION ??? KNEE ARTHROSCOPY Arthroscopy, knee Allergies Allergen Reactions ??? Latex Rash ??? Latex, Natural Rubber rash Medications Prior to Today's Visit Medication Sig ??? aspirin 81 mg EC tablet Take 81 mg by mouth daily. ??? Carboxymethylcellulose Sodium (THERA TEARS) 0.25 % Drop Apply 1 Drop to eye 4 times daily. ??? desoximetasone (TOPICORT) 0.25 % cream Apply topically 2 times daily. ??? DOCOSAHEXANOIC ACID/EPA (FISH OIL ORAL) Take 1 Cap by mouth daily. ??? DOXYCYCLINE MONOHYDRATE ORAL Take 50 mg by mouth every 48 hours. 4 gtts both eyes 4xs a day ??? IBUPROFEN (ADVIL ORAL) Take by mouth. ??? Lutein 20 mg capsule Take 20 mg by mouth daily. ??? metoprolol XL (TOPROL-XL) 25 mg tablet TAKE 1 TABLET BY MOUTH EVERY DAY ??? simvastatin (ZOCOR) 40 mg tablet TAKE 1 TABLET BY MOUTH EVERY EVENING No facility-administered medications prior to visit. OBJECTIVE: Temp 36.9 ??C (98.5 ??F) Ht 162.6 cm (64) Wt 62.1 kg (137 lb) BMI 23.52 kg/m?? On physical exam, the patient is found to be a pleasant and cooperative female who appears to be alert and oriented x 3. She is well-developed, well-nourished and in no significant distress. Breathing is unlabored. Skin is warm, pink and dry to inspection and palpation. Neurovascularly intact with good capillary refill. Examination shows a 40 degree contracture of the right small finger PIP jointwith an ulnar cord most palpable between the palmar digital and PIP flexion crease and a little bitbeyond it. She also has some wide firm masses in the left palm as well no other significant contractures of the joints however at this time there is good sensation circulation no sign of advanced atrophy or wasting of the thenar or hyperthenar intrinsics. No triggering no joint swelling. ASSESSMENT/PLAN Dupuytren's contracture right small finger in addition to some mild carpal tunnel syndrome. The patient is interested in golfing and motorcycle riding but would like to have treatmentI offered her today since we had time and it is a limited intervention for a needle aponeurotomy and she accepted with steroid carpal tunnel injection. Procedure: Hand/Upper Extremity Injection/Arthrocentesis: R carpal tunnel for carpal tunnel syndrome on 03/14/2021 10:15 Medications: 40 mg triamcinolone acetonide 40 mg/mL [...] pain or swelling. Patient tolerated procedure well. 40 mg Kenalog 1 mL total half of which went into the carpal tunnel and the other half divided into 3 doses for the 3 needle spots along the ulnar cord to the right small finger resulting in palpable release of the cord ability to passively stretch the finger to neutral although it generally had about 10 degree residual springy. No untoward events. This note was prepared using voice recognition software and the EMR. There may be inadvertent errors and omissions. Sourav Nathan MD 03/14/2021 documented in this encounter Plan of Treatment [...] Diagnosis Comments HAND/UPPER EXTREMITY INJECTION/ARTHROCEN TESIS Routine 03/14/2021 10:15 EDT Dupuytren's contracture of right hand documented in this encounter Results * GA INJECTION THERAPEUTIC CARPAL TUNNEL (03/14/2021 10:15 EDT) Narrative [facility] POINT OF CARE - 03/14/2021 10:15 EDT Sourav Nathan MD ? 03/14/2021 11:19 Hand/Upper Extremity Injection/Arthrocentesis: R carpal tunnel for carpal tunnel syndrome on 03/14/2021 10:15 Medications: 40 mg triamcinolone acetonide 40 mg/mL Sourav Nathan MD PROCEDURE /MINOR SURGICAL ORDERABLES [facility] POINT OF CARE documented in this encounter Visit Diagnoses Diagnosis Dupuytren's contracture of right hand- Primary Contracture of palmar fascia Right carpal tunnel syndrome Carpal tunnel syndrome documented in this encounter Administered Medications Inactive Administered Medications - up to 3 most recent administrations Medication Order MAR Action Action Date Dose Rate Site triamcinolone acetonide (KENALOG-40) injection 40 mg 40 mg, other, Once PRN Procedure, 1 dose, Starting on 03/14/21 at 1015, Until 03/14/21 at 1015, Routine Given 03/14/2021 10:15 EDT 40 mg documented in this encounter Care Teams Ferryboat Operator Relationship Specialty Start Date End Date Unknown, Provider, PCP - General 08/29/18 07/03/22 documented as of this encounter
--- OUTSIDE RECORDS SUMMARY | 2024-05-14 11:10 | XMS_ITS | Encounter Summary ---
Author Organization [facility] Address [address] [place] [address] Care Team Providers Care Gasfitter Name Role Phone Shaun Valero MD Primary Care Provider Unav ailable Encounter Details Date Type Department Care Team (Late st Contact Info) Description 07/13/2013 Results Only [facility] [address] [address] Shaun Valero MD Social History Tobacco Use Types Packs/Day [...] Procedure Name Priority Date/Time Associated Diagnosis Comments LIPID PROFILE (INCLUDES CHOLESTEROL, TRIGLYCERIDES, HDL, LDL) Routine 07/13/2013 8:36 EDT documented in this encounter Results * (ABNORMAL) LIPID PROFILE (INCLUDES CHOLESTEROL, TRIGLYCERIDES, HDL, LDL) (07/13/2013 8:36 EDT) Triglycerides, External 121 35 - 150 mg/dL [facility] Cholesterol, External 193 120 - 200 mg/dL [facility] HDL, External 57 40 - 60 mg/dL [facility] LDL, External 112(H) 60 - 100 mg/dL [facility] 07/13/2013 8:36 EDT 07/13/2013 8:36 EDT Narrative [facility] - 07/13/2013 9:42 EDT Does PT Have a Latex Allergy? YES Medical Necessity NA Shaun Valero MD CHEMISTRY & BLOOD G ORDERABLES [facility] documented in this encounter Visit Diagnoses Not on filedocumented in this encounter Care Teams Gasfitter Relationship Specialty Start Date End Date Shaun Valero MD PCP - General 08/16/09 06/07/15 documented as of this encounter
--- OUTSIDE RECORDS SUMMARY | 2024-05-14 11:10 | XMS_ITS | Encounter Summary ---
Author Organization [facility] Address [address] [place] [address] Care Team Providers Care Procurement Professional Logistics Name Role Phone Velma Mae MD Primary Care Provid er Reason for Referral * Laboratory Services (Routine) - Closed Specialty Diagnoses / Procedures Referred By Mo pardo Referred To Contact Diagnoses Essential hypertension Procedures BASIC METABOLIC PANEL Velma Mae MD [address] [place] [address] Referral ID Status Reason Start Date Expiration Date Visits Re quested Visits Authorized [id number] Closed 07/11/2015 1 1 * Laboratory Services (Routine) - Closed Specialty Diagnoses / Procedures Referred By Mo pardo Referred To Contact Diagnoses Hyperlipidemia Procedures LIPID PROFILE (INCLUDES CHOLESTEROL, TRIGLYCERIDES, HDL, LDL) Velma Mae MD [address] [place] [address] Referral ID Status Reason Start Date Expiration Date Visits Re quested Visits Authorized [id number] Closed 07/11/2015 1 1 Reason for Visit * Reason Comments Annual Exam Pt here today for AN P; Falls Risk done- pt wonders if she should have her Pap here or go back to Dr Perez?- BHS done- OK Encounter Details Date Type Department Care Team (Late st Contact Info) Description 07/11/2015 9:15 EDT Office Visit [facility] - [address] [place] [address] Velma Mae MD [address] [place] [phone] Routine general medical examination at a health care facility (Primary Dx); Need for prophylactic vaccination against Streptococcus pneumoniae (pneumococcus); Need for influenza vaccination; Hyperlipidemia; Essential hypertension Social History Tobacco Use Types Packs/Day Years [...] Sign Reading Time Taken Comments Blood Pressure 136/80 07/11/201510 EDT Pulse 64 07/11/2015 09 EDT Temperature 35.7 ??C (96.3 ??F) 07/11/2015 0910 EDT Respiratory Rate - - Oxygen Saturation - - Inhaled Oxygen Concentration - - Weight 61.7 kg (136 lb) 07/11/2015909 EDT Height 162.6 cm (5' 4) 07/11/2015 0910 EDT Body Mass Index 23.34 07/11/2015 0910 EDT documented in this encounter Functional Status [...] as of this encounter Progress Notes * Velma Mae MD - 07/11/2015 0942 EDT Medicare Annual Wellness Visit - Initial Medicare Essential Components: Patient self-assessment questionnaire completed, reviewed, and scanned: Yes. Full history done with PMH, PSH, SH, FH, ROS. The patient's problem list, past medical/surgical history, medications, allergies, family and social history were all updated and reviewed. Done: Yes Diet Reviewed: healthy - no recommendations Level of activity: active: 5 - 6 times per week Mood Screen (PHQ-2 on new pt and follow-up questionnaire) done: Yes: Negative Vision: assessed: Yes: grossly normal Functional Evaluation completed ADLs: independent Cognitive: no impairment Hearing: grossly normal Fall Risk: no falls last year Home Safety: smoke detectors, CO detectors, hand rails, no trip hazards and adequate lighting Advance Directives - has an advanced directive - a copy HAS NOT been provided. Updated list of treating providers on care team: Yes Written Health Plan in patient instructions: Yes Patient Care Team: Velma Mae MD as PCP - General Andrew Tang- [place] in [place] Spends time in [place] 1/2 year Subjective: Patient ID: Nury Robetrs is an 65 y.o. female. Chief Complaint Patient presents with ??? Annual Exam Pt here today for ANP; Falls Risk done- pt wonders if she should have her Pap here or go back to [facility]?- BHS done- OK HPI The patient is here for Medicare wellness exam. She also has high cholesterol and hypertension. These are well controlled on simvastatin and metoprolol. She has no chest pain or shortness of breath. She is very healthy. She has had some eye issues. Overall she feels great. Patient Active Problem List Diagnosis ??? Hyperlipidemia ??? Hypertension ??? Macular degeneration, right eye Past Medical History Diagnosis Date ??? Hypertension ??? Cataract Current Outpatient Prescriptions on File Prior to Visit Medication Sig Dispense Refill ??? aspirin 81 mg EC tablet Take 81 mg by mouth daily. ??? Carboxymethylcellulose Sodium (THERA TEARS) 0.25 % Drop Apply 1 Drop to eye 4 times daily. ??? desoximetasone (TOPICORT) 0.25 % cream Apply topically 2 times daily. 30 g 11 ??? DOCOSAHEXANOIC ACID/EPA (FISH OIL ORAL) Take [...] BY MOUTH EVERY DAY 90 Tab 0 ??? simvastatin (ZOCOR) 40 mg tablet TAKE 1 TABLET BY MOUTH EVERY EVENING 90 Tab 0 No current facility-administered medications on file prior to visit. Allergies Allergen Reactions ??? Latex, Natural Rubber rash ??? No Known Drug Allergies Social History Substance Use Topics ??? Smoking status: Former Smoker -- 1.50 packs/day for 20 years Quit date: 07/11/1987 ??? Smokeless tobacco: Not on file ??? Alcohol Use: 3.6 - 5.4 oz/week 6-9 Glasses of wine per week Review of Systems Constitutional: Negative. HENT: Negative. Eyes: Negative. Respiratory: Negative. Cardiovascular: Negative. Gastrointestinal: Negative. Genitourinary: Negative. Musculoskeletal: Negative. Skin: Negative. Neurological: Negative. Endo/Heme/Allergies: Negative. Psychiatric/Behavioral: Negative. - See HPI Objective: A physical exam is not a necessary component for IPPEs or AWVs - any examination is done at the discretion of the visit provider. BP 136/80 mmHg Pulse 64 Temp(Src) 35.7 ??C (96.3 ??F) (Tympanic) Ht 162.6 cm (64) Wt 61.689 kg (136 lb) BMI 23.33 kg/m2 Physical Exam Well-nourished well-developed no acute distress Alert and oriented ??3 Euthymic Lungs clear Heart regular rate and rhythm No edema Assessment: 1. Routine general medical examination at a health care facility 2. Need for prophylactic vaccination against Streptococcus pneumoniae (pneumococcus) PNEUMOCOCCAL CONJ VACC PCV13 IM 3. Need for influenza vaccination INFLUENZA VACCINE =>3YO QUAD PRESERVATIVE FREE IM 4. Hyperlipidemia LIPID PROFILE (INCLUDES CHOLESTEROL, TRIGLYCERIDES, HDL, LDL) 5. Essential hypertension BASIC METABOLIC PANEL Plan: Nury was seen today for annual exam. Will f/u for pap All other health maintenance up to date Diagnoses and associated orders for this visit: Routine general medical examination at a health care facility Need for prophylactic vaccination against Streptococcus pneumoniae (pneumococcus) - Pneumococcal conjugate vaccine 13-valent IM Need for influenza vaccination - Influenza Vaccine =>3YO Quad Preservative Free IM Hyperlipidemia - Lipid Profile (Includes Cholesterol, Triglycerides, HDL, LDL) Essential hypertension - Basic Metabolic Panel Other Orders - mammo 04/14/15 normal Colon 06/28/15 normal documented in this encounter Plan of Treatment Scheduled Orders Name Type Priority Associated Diagnoses Orde r Schedule LIPID PROFILE (INCLUDES CHOLESTEROL, TRIGLYCERIDES, HDL, LDL) Lab Routine Hyperlipidemia Ordered: 07/11/2015 BASIC METABOLIC PANEL Lab Routine Essential hypertension Ordered: 07/11/2015 documented as of this encounter Goals Goal [...] Date/Time Associated Diagnosis Comments COLONOSCOPY PROCEDURE Routine 06/28/2015 MAMMOGRAPHY, EXTERNAL Routine 04/14/2015 documented in this encounter Results * COLONOSCOPY (06/28/2015) Colonoscopy EXTERNAL FACILITY Colonoscopy, External NORMAL EXTERNAL FACILITY Anatomical Region Laterality Modality Endoscopy Historical Provider GI PROCEDURE ORDE RABLES * MAMMOGRAPHY, EXTERNAL (04/14/2015) Mammography, External NEGATIVE EXTERNAL FACILITY Comment:Bilateral- Cat 1- Ne gative Anatomical Region Laterality Modality Other Historical Provider IMG OTHER IMAGING ORDERABLES documented in this encounter Visit Diagnoses Diagnosis Routine general medical examination at a health care facility- Primary Need for prophylactic vaccination against Streptococcus pneumoniae (pneumococcus) Need for prophylactic vaccination against streptococcus pneumoniae (pneumococcus) Need for influenza vaccination Need for prophylactic vaccination and inoculation against influenza Hyperlipidemia Other and unspecified hyperlipidemia Essential hypertension Unspecified essential hypertension documented in this encounter Orders Immunization/Injection Count Last Ordered Date First Ordered Date INFLUENZA VACCINE =>3YO QUAD PRESERVATIVE FREE IM 1 07/11/2015 PNEUMOCOCCAL CONJ VACC PCV13 IM 1 5 documented in this encounter Care Teams Procurement Professional Logistics Relationship Specialty Start Date End Date Velma Mae MD PCP - General 06/08/15 12/04/16 documented as of this encounter
--- OUTSIDE RECORDS SUMMARY | 2024-05-14 11:10 | XMS_ITS | Encounter Summary ---
Author Organization [facility] Address [address] [place] [address] Care Team Providers Care Manager Building Name Role Phone Unknown, Provider Primary Care Provider Reason for Visit * Reason Comments Thumb Injury laceration Encounter Details Date Type Department Care Team (Late st Contact Info) Description 03/20/2022 9:45 EDT Walk-In [facility] [address] [place] [phone] Enma Roberts NP [address] [facility] [address] [place], [place] [address] Laceration of right thumb without foreign body without damage to nail, initial encounter (Primary Dx) Social History Tobacco Use Types Packs/Day Years [...] Sign Reading Time Taken Comments Blood Pressure 141/89 03/20/2022 0956 EDT Pulse 88 03/20/2022 0956 EDT Temperature 36.6 ??C (97.8 ??F) 03/20/2022 0956 EDT Respiratory Rate 16 03/20/2022 0956 EDT Oxygen Saturation 98% 03/20/2022 0956 EDT Inhaled Oxygen Concentration - - Weight [...] this encounter Patient Instructions * Patient Instructions* Enma Roberts NP - 03/20/2022 9:45 EDT Keep wound dry from the next 12-24 hours. Check wound daily for signs of infection: increasing redness, pain, purulent drainage, swelling Wash wound with warm water and gentle soap. Dress with bacitracin or aquaphor and bandage Return 10-14 days for suture removal. Sooner with any concern of infection. documented in this encounter Progress Notes * Edwina Hart RN - 03/20/2022 0945 EDT CC/HPI:40 minutes ago she was hit with a pickle ball racket and sliced her thumb open Covid Screening: In the last 72 hours, [...] RN or in discussion with available provider (PRINTING AGENT's and CCA's can defer to Charge Nurse to complete triage when appropriate) PCP: UNKNOWN,PROVIDER * Enma Roberts NP - 03/20/2022 0945 EDTAssociated Order(s): Laceration Repair Post-Procedure Diagnose(s): Laceration of right thumb without foreign body without damage to nail, initial encounter [facility] Chief Complaint(s): Thumb Injury (laceration) HPI: Nury is a 71 yo female presenting to [facility] for laceration of right thumb. This occurred today while playing pickle ball. Hit with another player's racket. Laceration is over IPJ. Tooka while to stop the bleeding. She is right handed. Had tetanus in September from a burn on thigh in [place] I have reviewed current problem list and current medications. ROS: Review of Systems Constitutional: Negative for chills and fever. Objective: Examination: Vitals: BP 141/89 Pulse 88 Temp 36.6 ??C (97.8 ??F) (Oral) Resp 16 SpO2 98% There is no height or weight on file to calculate BMI. Physical Exam Vitals reviewed. Constitutional: Appearance: Normal appearance. She is not ill-appearing. Musculoskeletal: Right hand: Laceration (~2 cm u-shaped laceration over dorsal aspect of 1st IPJ) present. No bony tenderness. Normal range of motion. Comments: Full flexion and extension at right 1st IPJ and MCPJ Neurological: Mental Status: She is alert. Laceration Repair Date/Time: 03/20/2022 17:36 Performed by: Enma Roberts NP Authorized by: Enma Roberts NP Consent: Verbal consent obtained. Written consent obtained. Consent given by: patient Body area: upper extremity Location details: right thumb Laceration length: 2 cm Foreign bodies: no foreign bodies Tendon involvement: none Anesthesia: digital block and local infiltration Anesthesia: Local Anesthetic: lidocaine 2% without epinephrine Anesthetic total: 3 mL Irrigation solution: tap water Irrigation method: tap Amount of cleaning: standard Skin closure: 5-0 nylon Number of sutures: 4 Technique: simple Approximation: close Approximation difficulty: simple Dressing: xeroform, nonstick dressing, coban. Patient tolerance: patient tolerated the procedure well with no immediate complications Assessment & Plan: 1. Laceration of right thumb without foreign body without damage to nail, initial encounter Recommended repair with sutures given continued bleeding and location over the IPJ. Closed with 4 simple sutures. Keep wound dry from the next 12-24 hours. Check wound daily for signs of infection: increasing redness, pain, purulent drainage, swelling Wash wound with warm water and gentle soap. Dress with bacitracin or aquaphor and bandage Return 10-14 days for suture removal. Sooner with any concern of infection. She is UTD with tetanus documented in this encounter Plan of Treatment [...] Procedure Name Priority Date/Time Associated Diagnosis Comments LACERATION REPAIR Routine 03/20/2022 17: 36 EDT Laceration of right thumb without foreign body without damage to nail, initial encounter LACERATION REPAIR Routine 03/20/2022 17: 36 EDT Laceration of right thumb without foreign body without damage to nail, initial encounter documented in this encounter Results * HI SIMPLE REPAIR SCALP/NECK/AX/GENIT/TRUNK 2.5CM/<, HC - BEDSIDE CODING WORKFLOW 2 (03/20/2022 17:36 EDT) Narrative [facility] POINT OF CARE - 03/20/2022 17:36 EDT Enma Roberts NP ? 03/20/2022 17:39 Laceration Repair Date/Time: 03/20/2022 17:36 Performed by: Enma Roberts NP Authorized by: Enma Roberts NP Consent: Verbal consent obtained. Written consent obtained. Consent given by: patient Body area: upper extremity Location details: right thumb Laceration length: 2 cm Foreign bodies: no foreign bodies Tendon involvement: none Anesthesia: digital block and local infiltration Anesthesia: Local Anesthetic: lidocaine 2% without epinephrine Anesthetic total: 3 mL Irrigation solution: tap water Irrigation method: tap Amount of cleaning: standard Skin closure: 5-0 nylon Number of sutures: 4 Technique: simple Approximation: close Approximation difficulty: simple Dressing: xeroform, nonstick dressing, coban. Patient tolerance: patient tolerated the procedure well with no immediate complications Enma Roberts DAIRY MANAGEMENT SPECIALIST PROCEDURE/MINOR SURG ICAL ORDERABLES [facility] documented in this encounter Visit Diagnoses Diagnosis Laceration of right thumb without foreign body without damage to nail, initial encounter- Primary documented in this encounter Discontinued Medications Medication Sig Discontinue Reason Start Date End Da te simvastatin (ZOCOR) 40 mg tablet TAKE 1 TABLET BY MOUTH EVERY EVENING Duplicate order 09/13/2015 03/20/2022 DOXYCYCLINE MONOHYDRATE ORAL Take 50 mg by mouth every 48 hours. 4 gtts both eyes 4xs a day Duplicate order 03/20/2022 metoprolol XL (TOPROL-XL) 25 mg tablet TAKE 1 TABLET BY MOUTH EVERY DAY Duplicate order 09/13/2015 03/20/2022 documented as of this encounter Historical Medications * This list may reflect changes made after this encounter. Medication Sig Dispensed Refills Start Date End Date losartan (COZAAR) 100 mg tablet Take 100 mg by mouth daily. 01/29/2022 simvastatin (ZOCOR) 80 mg tablet Take 80 mg by mouth daily. 02/23/2022 metoprolol SUCCinate (TOPROL-XL) 50 mg tablet Take 50 mg by mouth daily. 02/28/2022 doxycycline (VIBRAMYCIN) 50 mg capsule Take 50 mg by mouth every 48 hours. 03/16/2022 added in this encounter Care Teams Manager Building Relationship Specialty Start Date End Date Unknown, Provider, PCP - General 08/29/18 07/03/22 documented as of this encounter
--- OUTSIDE RECORDS SUMMARY | 2024-05-14 11:10 | XMS_ITS | Encounter Summary ---
Author Organization [facility] Address [address] [place] [address] Care Team Providers Care Cancer Registry Manager Name Role Phone Velma Mae MD Primary Care Provid er Reason for Visit * Reason Comments Other Encounter Details Date Type Department Care Team (Late st Contact Info) Description 09/13/[address] [address] Shaun Valero MD Other Social History Tobacco [...] No 07/11/2015 documented as of this encounter Ordered Prescriptions Prescription Sig Dispensed Refills Start Date End Da te metoprolol XL (TOPROL-XL) 25 mg tablet TAKE 1 TABLET BY MOUTH EVERY DAY 90 Tab 3 09/13/2015 03/20/2022 simvastatin (ZOCOR) 40 mg tablet TAKE 1 TABLET BY MOUTH EVERY EVENING 90 Tab 3 09/13/2015 03/20/2022 documented in this encounter Miscellaneous Notes * Telephone Encounter - Sammi Andujar, RN - 09/13/2015 1118 EST Medication(s) Requested: Zocor & metoprolol Pharmacy: [facility] Last Refill Date: 06/23/15 Last Visit Date: 07/11/15 OV and Labs Next Visit Date: Visit date not found Is patient out of medication? unknown Sammi Andujar RN 09/13/2015 11:18 documented in this encounter Plan of Treatment [...] TAKE 1 TABLET BY MOUTH EVERY EVENING Reorder 06/23/2015 09/13/2015 metoprolol XL (TOPROL-XL) 25 mg tablet TAKE 1 TABLET BY MOUTH EVERY DAY Reorder 06/23/2015 09/13/2015 documented as of this encounter Care Teams Cancer Registry Manager Relationship Specialty Start Date End Date Velma Mae MD PCP - General 06/08/15 12/04/16 documented as of this encounter
--- OUTSIDE RECORDS SUMMARY | 2024-05-14 11:10 | XMS_ITS | Encounter Summary ---
Author Organization [facility] Address [address] [place] [address] Care Team Providers Care Cemetery Counselor Name Role Phone Shaun Valero MD Primary Care Provider Unav ailable Encounter Details Date Type Department Care Team (Late st Contact Info) Description 07/03/2013 Results Only [facility] Laboratory Services - [facility] [address] [place], [place] [address] Stuart Duke MD [address] [place] [address] Social History Tobacco Use Types Packs/Day Years [...] Procedure Name Priority Date/Time Associated Diagnosis Comments PAP TEST- RESULT ONLY Routine 07/03/2013 documented in this encounter Results * PAP TEST- RESULT ONLY (07/03/2013) Pathology Report, External: -- Name: NURY KAMARA ?: 46 ?Age/Sex: 63/F ?Unit#: [id number] ? Loc: LAB.OPX ? Status: REG REF ?? Reg Date: 07/03/13 ? Pt.Phone Number: ? -- Specimen: [id number] ?STATUS: SOUT ?Spec Date:07/03/13 ? Physician Copies: ?Stuart Duke J Tissues: ? Cervical/Endo Pap ? CPT: 64735 ?? Units: ??1 -- ? CYTOLOGY DIAGNOSIS SPECIMEN ADEQUACY: ?Satisfactory for evaluation. Transformation zone component present. GENERAL CATEGORIZATION: ?Negative for Intraepithelial Lesion or Malignancy DESCRIPTIVE DIAGNOSIS: ??Reactive cellular changes associated with inflammation present (includes typical repair). RECOMMENDATIONS/CO MMENTS: ?None. -- ORDER QUERIES: LMP: ? - POST ADRIA ? Post ?PREVIOUS ATYPICAL: ?? BCP/HRT? ?? Rad Rx? ?? IUD?PAP PLUS HPV?REFLEX TO HR-HPV IF ASCUS ?? REFLEX TO HPV 16/18 IF HPV POSITIVE/PAP NEGATIVE ?HPV TESTING REGARDLESS? ?? Signed Electronically Signed ? Justyna Altamirano M.D. 07/10/13 1729 -- [facility] 07/03/2013 07/04/2013 15: 49 EDT Stuart Duke MD PATHOLOGY ORDERABL ES [facility] documented in this encounter Visit Diagnoses Not on filedocumented in this encounter Care Teams Cemetery Counselor Relationship Specialty Start Date End Date Shaun Valero MD PCP - General 08/16/09 06/07/15 documented as of this encounter
--- OUTSIDE RECORDS SUMMARY | 2024-05-14 11:10 | XMS_ITS | Encounter Summary ---
Author Organization [facility] Address [address] [place] [address] Care Team Providers Care Installation Tech Name Role Phone Shaun Valero MD Primary Care Provider Unav ailable Encounter Details Date Type Department Care Team (Latest Contact Info) Description 07/30/2013 14:39 EDT - 07/30/2013 23:59 EDT Hospital Encounter [facility] - [address] [address] Unknown, Provider, Discharge Disposition: Home or Self [...] on file documented as of this encounter Medications at Time of Discharge Medication Sig Dispensed Refills Start Date End Date aspirin 81 mg EC tablet Take 81 mg by mouth daily. Carboxymethylcellulose Sodium (THERA TEARS) 0.25 % Drop Apply 1 Drop to eye 4 times daily. DOCOSAHEXANOIC ACID/EPA (FISH OIL ORAL) Take 1 Cap by mouth daily. IBUPROFEN (ADVIL ORAL) Take by mouth. Lutein 20 mg capsule Take 20 mg by mouth daily. DOXYCYCLINE MONOHYDRATE ORAL Take 50 mg by mouth every 48 hours. 4 gtts both eyes 4xs a day 03/20/2022 metoprolol XL (TOPROL-XL) 25 mg tabletIndications:Hyperten sive disorder Take 1 Tab by mouth daily. 90 Tab 4 07/01/2013 11/03/2013 simvastatin (ZOCOR) 40 mg tablet Take 1 Tab by mouth every evening. 90 Tab 4 07/01/2013 06/04/2014 documented as of this encounter Discharge Disposition Disposition Code Departure Means Destination Home or Self Skilled Nursing documented in this encounter Plan of Treatment Not on file documented as of this encounter Visit Diagnoses Not on filedocumented in this encounter Care Teams Installation Tech Relationship Specialty Start Date End Date Shaun Valero MD PCP - General 08/16/09 06/07/15 documented as of this encounter
--- OUTSIDE RECORDS SUMMARY | 2024-05-14 11:10 | XMS_ITS | Encounter Summary ---
Author Organization [facility] Address [address] [place] [address] Care Team Providers Care Recycling Operator Name Role Phone Unknown, Provider Primary Care Provider [phone] Encounter Details Date Type Department Care Team (Latest Contact Info) Description 03/14/2021 Travel Social History Tobacco Use Types Packs/Day Years [...] 10:08 EDT documented as of this encounter Functional Status [...] on filedocumented in this encounter Care Teams Recycling Operator Relationship Specialty Start Date End Date Unknown, Provider, PCP - General 08/29/18 07/03/22 documented as of this encounter
--- OUTSIDE RECORDS SUMMARY | 2024-05-14 11:10 | XMS_ITS | Encounter Summary ---
Author Organization [facility] Address [address] [place] [address] Care Team Providers Care Cook Supervisor Name Role Phone Shaun Valero MD Primary Care Provider Heatherv Velma Freedman MD Primary Care Provid er Rusty Malik MD Primary Care Provider [phone] Unknown, Provider Primary Care Provider [phone] Encounter Details Date Type Department Care Team (Late st Contact Info) Description 04/14/2015 Historical Results Only [facility] Radiology Results [address] [place], [place] [id number] Shanu Valero MD Social History Tobacco Use Types [...] Name Priority Date/Time Associated Diagnosis Comments MA BREAST SCREENING BRANDY BILATERAL 04/14/2015 14:04 EDT documented in this encounter Results * MA BREAST SCREENING BRANDY BILATERAL (04/14/2015 14:04 EDT) Anatomical Region Laterality Modality Breast Bilateral Other 04/14/2015 14:0 4 EDT Narrative 04/15/2015 14:48 EDT ? EXAM: MAMMOGRAM/MAMMO BILATERAL SCREEN W ??EX. D/ (1404) ? CLINICAL INFORMATION: ? SCREENING ? TECHNIQUE: ??Full field digital whole breast 2D and 3D CC and MLO views ? of both breasts were obtained. CAD technology was utilized. ? INDICATION: ??Screening ? FINDINGS: ??The fibroglandular patterns of the breasts are normal. ? There has been no change when compared to previous mammograms and ? there is no mammographic evidence of cancer. The breasts are of ? heterogeneous density, which limits the sensitivity of mammography for ? the detection of malignancy. ? FINAL ASSESSMENT: ??BILATERAL BREAST - Category 1 - Negative. Routine ?mammographic follow-up is recommended. ? These results will be communicated to your patient via a lay letter ? from Radiology. ??If any additional imaging is needed we will contact ? your patient directly. ? JSP:kad ?Reported By: Fuad Ortiz MD ? CC: Maryann Reid MD; Shaun Valero MD ? Transcribed Date/Time: 04/15/2015 (1448) ? Gunner'S Mate M: JOHN ? Printed Date/Time: 03/09/2019 (7401) ? PAGE 1 ? Signed Report ? Procedure Note Fuad Ortiz MD - 08/04/2019 EXAM: MAMMOGRAM/MAMMO BILATERAL SCREEN W EX. D/ (1404) CLINICAL INFORMATION: SCREENING TECHNIQUE: Full field digital whole breast 2D and 3D CC and MLOviews of both breasts were obtained. CAD technology was utilized. INDICATION: Screening FINDINGS: The fibroglandular patterns of the breasts are normal. There has been no change when compared to previous mammograms and there is no mammographic evidence of cancer. The breasts are of heterogeneous density, which limits the sensitivity of mammographyfor the detection of malignancy. FINAL ASSESSMENT: BILATERAL BREAST - Category 1 - Negative.Routine mammographic follow-up is recommended. These results will be communicated to your patient via a lay letter from Radiology. If any additional imaging is needed we willcontact your patient directly. JSP:kad Reported By: Fuad Ortiz MD CC: Maryann Reid MD; Shaun Valero MD Transcribed Date/Time: 04/15/2015 (1448) Gunner'S Mate M: JOHN Printed Date/Time: 03/09/2019 (0883) PAGE 1 Signed Report Shaun Valero MD IMG MAMMOGRAPHY ORD ERABLES documented in this encounter Visit Diagnoses Not on filedocumented in this encounter Care Teams Cook Supervisor Relationship Specialty Start Date End Date Shaun Valero MD PCP - General 08/16/09 06/07/15 Velma Mae MD PCP - General 06/08/15 12/04/16 Rusty Malik MD PCP - General 12/05/16 08/28/18 Unknown, ProviderMD PCP - General 08/29/18 07/03/22 documented as of this encounter
--- OUTSIDE RECORDS SUMMARY | 2024-05-14 11:10 | XMS_ITS | Encounter Summary ---
Author Organization [facility] Address [address] [place] [address] Care Team Providers Care Laundry Supervisor Name Role Phone Pema Antoine MD Primary Care Provider [phone] Reason for Visit * Reason Comments Pain Follow-up Encounter Details Date Type Department Care Team (Late st Contact Info) Description 07/22/2023 10:00 EDT Office Visit [facility] [address] [place] [address] Sourav Nathan MD [address] [facility] [address] [place] [address] Trigger finger of right thumb (Primary Dx) Social History Tobacco Use Types [...] Progress Notes * Sourav Nathan MD - 07/22/2023 1000 EDTAssociated Order(s): Hand/Upper Extremity Injection/Arthrocentesis: R thumb A1 Post-Procedure Diagnose(s): Trigger finger of right thumb Nury presents today for an evaluation of her right hand/thumb No recent referrals noted. LV with CB 06/15/21 for right carpal tunnel syndrome and dupuytren contracture. Aponeurotomy performed on right small finger. Orthopaedic Surgery Office Note Nury Roberts 1950 [phone] Subjective. Patient presents with a few months of catching of the right thumb and would like to tryan injection. She has completed her [employer] goal and will be heading down to [place] shortly Patient Active Problem List Diagnosis ??? Hyperlipidemia ??? Hypertension ??? Macular degeneration, right eye Current Outpatient Medications Medication ??? aspirin 81 mg EC tablet ??? Carboxymethylcellulose Sodium (THERA TEARS) 0.25 % Drop ??? desoximetasone (TOPICORT) 0.25 % cream ??? DOCOSAHEXANOIC ACID/EPA (FISH OIL ORAL) ??? doxycycline (VIBRAMYCIN) 50 mg capsule ??? IBUPROFEN (ADVIL ORAL) ??? losartan (COZAAR) 100 mg tablet ??? Lutein 20 mg capsule ??? metoprolol SUCCinate (TOPROL-XL) 50 mg tablet ??? simvastatin (ZOCOR) 80 mg tablet No current facility-administered medications for this visit. Allergies Allergen Reactions ??? Latex Rash ??? Latex, Natural Rubber rash Objective: No data found. On physical exam, the patient is found to be a pleasant and cooperative female who appears to be alert and oriented x 3. She is well-developed, well-nourished and in no significant distress. Breathing is unlabored. Skin is warm, pink and dry to inspection and palpation. Neurovascularly intact with good capillary refill. Exam shows classic triggering of the right thumb and tenderness at the A1 neil consistent with a trigger digit. Assessment/Plan: She tolerated the injection well I told her it could be repeated down in [place] if needed. Procedure: Hand/Upper Extremity Injection/Arthrocentesis: R thumb A1 for trigger finger on 07/22/2023 10:00 Indications: therapeutic Details: 27 G needle Medications: 4 mg dexAMETHasone 4 mg/mL Patient was consented for the risks and benefits of injection into the affected joint or area including infection swelling soreness incomplete relief arthritis AVN,blood sugar elevation diabetes exacerbaton and further progress of the disease. A timeout was performed. Alcohol /chloroprep skin prep preformed Ethyl Chloride skin anesthetic was used. Patient tolerated procedure well with a Band- Aid dressing and injection sheet instructions for postop care including keeping area dry for 24 hrs and calling for any drainage redness or swelling 4 mg dexamethasone injected into the right trigger thumb area today Sourav Nathan MD 07/22/23 12:56 documented in this encounter Plan of Treatment [...] Diagnosis Comments HAND/UPPER EXTREMITY INJECTION/ARTHROCEN TESIS Routine 07/22/2023 10:00 EDT Trigger finger of right thumb documented in this encounter Results * MO INJECTION 1 TENDON SHEATH/LIGAMENT APONEUROSIS (07/22/2023 10:00 EDT) Narrative [facility] POINT [facility] CARE - 07/22/2023 10:00 EDT Sourav Nathan MD ? 07/22/2023 12:58 Hand/Upper Extremity Injection/Arthrocentesis: R thumb A1 for trigger finger on 07/22/2023 10:00 Indications: therapeutic Details: 27 G needle Medications: 4 mg dexAMETHasone 4 mg/mL Sourav Nathan MD PROCEDURE /MINOR SURGICAL ORDERABLES [facility] POINT OF CARE documented in this encounter Visit Diagnoses Diagnosis Trigger finger of right thumb- Primary documented in this encounter Administered Medications Inactive Administered Medications - up to 3 most recent administrations Medication Order MAR Action Action Date Dose Rate Site dexAMETHasone (DECADRON) injection 4 mg 4 mg, other, Once PRN Procedure, 1 dose, Starting on Sat07/22/23 at 1000, Until Sat07/22/23 at 1000, Routine Given 07/22/2023 10:00 EDT 4 mg documented in this encounter Orders Medications Ordered That Gary ht Not Have Been Administered Count Last Ordered Date First Ordered Date dexAMETHasone (DECADRON) injection 4 mg 1 1 documented in this encounter Care Teams Laundry Supervisor Relationship Specialty Start Date End Date Pema Antoine MD [address] [place] [address] PCP - General 07/04/22 documented as of this encounter
--- OUTSIDE RECORDS SUMMARY | 2024-05-14 11:10 | XMS_ITS | Encounter Summary ---
Author Organization [facility] Address [address] [place] [address] Care Team Providers Care Chronometer Assembler And Adjuster Name Role Phone Rusty Malik MD Primary Care Provider [phone] Unknown, Provider Primary Care Provider [phone] Encounter Details Date Type Department Care Team (Late st Contact Info) Description 03/31/2018 Historical Results Only [facility] Radiology Results [address] [place], [place] [id number] [place] [address] [facility] [place] [address] Social History Tobacco Use Types Packs/Day Years [...] Procedure Name Priority Date/Time Associated Diagnosis Comments US BREAST LIMITED BILATERAL 03/31/2018 15:22 EDT MA BREAST DIAGNOSTIC BRANDY BILATERAL 03/31/2018 15:22 EDT documented in this encounter Results * US BREAST LIMITED BILATERAL (03/31/2018 15:22 EDT) Anatomical Region Laterality Modality Breast Bilateral Other 03/31/2018 15:2 2 EDT Narrative 03/31/2018 15:23 EDT ? EXAM: ULTRASOUND/BILATERAL BREAST CALL BA EX. D/ (1018) ? CLINICAL INFORMATION: ? SUSPICIOUS AREAS NOTED BILATERAL ON IMAGES FROM ? [facility] (CAT. 0) ? ABNORMAL MAMMO - ADDITIONAL IMAGING RECOMMENED ? CYSTIC VS SOLID ? INDICATION: Suspicious findings seen on prior mammogram. ? COMPARISON: Bilateral screening mammogram performed at [facility], [place], [place] 12/30/2017 and bilateral mammograms ? 2014, 2012, 2012, 2010, 2009, 2009, 2008, 2007 at [facility]. ? TECHNIQUE: 3-D MLO and CC compression spot and whole breast ML views ? of both breasts were obtained. CAD technology was utilized. ? FINDINGS: ? Right breast: ? Right breast mammogram: The breast tissue is of scattered density. No ? dominant mass or suspicious microcalcification is identified. No ? significant interval change in the appearance of the breasts ? identified when compared to prior studies. No architectural ? distortion or suspicious microcalcification. ? Right breast ultrasound: Sonographic examination of the retroareolar ? breast and right upper quadrant was performed. There is a visible ? small retroareolar breast duct. No solid mass or abnormal posterior ? shadowing is identified. ? Left breast: The breast tissue is of scattered density. No dominant ? mass or suspicious microcalcification is seen. No significant ? interval change is identified when compared to prior studies. No ? architectural distortion or suspicious microcalcification. ? Left breast ultrasound: Sonographic examination of the lateral half ? of the left breast and retroareolar breast was performed. ? There is a 3 mm diametered cyst at 4 o'clock, 3 cm out from the ? nipple. No solid mass or abnormal posterior shadowing is identified. ? The patient should revert to yearly screening mammography in one ? year. ? The findings recommendations were given to the patient by the ? waste reduction coordinator at the time the examination. ? IMPRESSION: ? Right breast: Category 1. ? Left breast: Category 1. ? FINAL ASSESSMENT: ??BILATERAL BREASTS - Category 1 - Negative. ? These results will be communicated to your patient via a lay letter ? PAGE 1 ? Signed Report ? (CONTINUED) ? from Radiology. ??If any additional imaging is needed we will contact ? your patient directly. ? REPORT SIGNED IN OTHER VENDOR SYSTEM 04/01/2018 ?Reported By: Kun Evans MD ? CC: Velma Mae MD ? Transcribed Date/Time: 03/31/2018 (1523) ? Leasing Sales Consultant: ? Printed Date/Time: 03/20/2019 (0586) ? PAGE 2 ? Signed Report ? Procedure Note Kun Evans MD - 08/06/2019 EXAM: ULTRASOUND/BILATERAL BREAST CALL BA EX. D/ (1018) CLINICAL INFORMATION: SUSPICIOUS AREAS NOTED BILATERAL ON IMAGES FROM [facility] (CAT. 0) ABNORMAL MAMMO - ADDITIONAL IMAGING RECOMMENED CYSTIC VS SOLID INDICATION: Suspicious findings seen on prior mammogram. COMPARISON: Bilateral screening mammogram performed at [place], [place] 12/30/2017 and bilateral mammograms 2014, 2012, 2012, 2011, 2010, 2009, 2008, 2007 at [facility]. TECHNIQUE: 3-D MLO and CC compression spot and whole breast MLviews of both breasts were obtained. CAD technology was utilized. FINDINGS: Right breast: Right breast mammogram: The breast tissue is of scattered density.No dominant mass or suspicious microcalcification is identified. No significant interval change in the appearance of the breasts identified when compared to prior studies. No architectural distortion or suspicious microcalcification. Right breast ultrasound: Sonographic examination of theretroareolar breast and right upper quadrant was performed. There is a visible small retroareolar breast duct. No solid mass or abnormal posterior shadowing is identified. Left breast: The breast tissue is of scattered density. No dominant mass or suspicious microcalcification is seen. No significant interval change is identified when compared to prior studies. No architectural distortion or suspicious microcalcification. Left breast ultrasound: Sonographic examination of the lateral half of the left breast and retroareolar breast was performed. There is a 3 mm diametered cyst at 4 o'clock, 3 cm out from the nipple. No solid mass or abnormal posterior shadowing isidentified. The patient should revert to yearly screening mammography in one year. The findings recommendations were given to the patient by the waste reduction coordinator at the time the examination. IMPRESSION: Right breast: Category 1. Left breast: Category 1. FINAL ASSESSMENT: BILATERAL BREASTS - Category 1 - Negative. These results will be communicated to your patient via a lay letter PAGE 1 Signed Report (CONTINUED) from Radiology. If any additional imaging is needed we willcontact your patient directly. REPORT SIGNED IN OTHER VENDOR SYSTEM 04/01/2018 Reported By: Kun Evans MD CC: Velma Mae MD Transcribed Date/Time: 03/31/2018 (1522) Leasing Sales Consultant: Printed Date/Time: 03/20/2019 (5060) PAGE 2 Signed Report Stoney Gutierrez MD IMG US ORDERABLES * MA BREAST DIAGNOSTIC BRANDY BILATERAL (03/31/2018 15:22 EDT) Anatomical Region Laterality Modality Breast Bilateral Other 03/31/2018 15:2 2 EDT Narrative 03/31/2018 15:23 EDT ? EXAM: MAMMOGRAM/MAMMO DX CALL BACK KARTHIKEYAN W ??EX. D/ (0951) ? CLINICAL INFORMATION: ? SUSPICIOUS AREAS NOTED BILATERAL ON IMAGES FROM ? [facility] (CAT. 0) ? ABNORMAL MAMMO - ADDITIONAL IMAGING RECOMMENED ? INDICATION: Suspicious findings seen on prior mammogram. ? COMPARISON: Bilateral screening mammogram performed at [facility], [place], [place] 12/30/2017 and bilateral mammograms ? 2014, 2012, 2011, 2010, 2009, 2008, 2008, 2007 at [facility]. ? TECHNIQUE: 3-D MLO and CC compression spot and whole breast ML views ? of both breasts were obtained. CAD technology was utilized. ? FINDINGS: ? Right breast: ? Right breast mammogram: The breast tissue is of scattered density. No ? dominant mass or suspicious microcalcification is identified. No ? significant interval change in the appearance of the breasts ? identified when compared to prior studies. No architectural ? distortion or suspicious microcalcification. ? Right breast ultrasound: Sonographic examination of the retroareolar ? breast and right upper quadrant was performed. There is a visible ? small retroareolar breast duct. No solid mass or abnormal posterior ? shadowing is identified. ? Left breast: The breast tissue is of scattered density. No dominant ? mass or suspicious microcalcification is seen. No significant ? interval change is identified when compared to prior studies. No ? architectural distortion or suspicious microcalcification. ? Left breast ultrasound: Sonographic examination of the lateral half ? of the left breast and retroareolar breast was performed. ? There is a 3 mm diametered cyst at 4 o'clock, 3 cm out from the ? nipple. No solid mass or abnormal posterior shadowing is identified. ? The patient should revert to yearly screening mammography in one ? year. ? The findings recommendations were given to the patient by the ? waste reduction coordinator at the time the examination. ? IMPRESSION: ? Right breast: Category 1. ? Left breast: Category 1. ? FINAL ASSESSMENT: ??BILATERAL BREASTS - Category 1 - Negative. ? These results will be communicated to your patient via a lay letter ? PAGE 1 ? Signed Report ? (CONTINUED) ? from Radiology. ??If any additional imaging is needed we will contact ? your patient directly. ? REPORT SIGNED IN OTHER VENDOR SYSTEM 04/01/2018 ?Reported By: Kun Evans MD ? CC: Velma Mae MD ? Transcribed Date/Time: 03/31/2018 (1523) ? Leasing Sales Consultant: SCNaman ? Printed Date/Time: 03/20/2019 (1617) ? PAGE 2 ? Signed Report ? Procedure Note Kun Evans MD - 08/06/2019 EXAM: MAMMOGRAM/MAMMO DX CALL BACK KARTHIKEYAN W EX. D/ (0951) CLINICAL INFORMATION: SUSPICIOUS AREAS NOTED BILATERAL ON IMAGES FROM [facility] (CAT. 0) ABNORMAL MAMMO - ADDITIONAL IMAGING RECOMMENED INDICATION: Suspicious findings seen on prior mammogram. COMPARISON: Bilateral screening mammogram performed at [place], [place] 12/30/2017 and bilateral mammograms 2014, 2012, 2011, 2010, 2010, 2009, 2008, 2007 at [facility]. TECHNIQUE: 3-D MLO and CC compression spot and whole breast MLviews of both breasts were obtained. CAD technology was utilized. FINDINGS: Right breast: Right breast mammogram: The breast tissue is of scattered density.No dominant mass or suspicious microcalcification is identified. No significant interval change in the appearance of the breasts identified when compared to prior studies. No architectural distortion or suspicious microcalcification. Right breast ultrasound: Sonographic examination of theretroareolar breast and right upper quadrant was performed. There is a visible small retroareolar breast duct. No solid mass or abnormal posterior shadowing is identified. Left breast: The breast tissue is of scattered density. No dominant mass or suspicious microcalcification is seen. No significant interval change is identified when compared to prior studies. No architectural distortion or suspicious microcalcification. Left breast ultrasound: Sonographic examination of the lateral half of the left breast and retroareolar breast was performed. There is a 3 mm diametered cyst at 4 o'clock, 3 cm out from the nipple. No solid mass or abnormal posterior shadowing isidentified. The patient should revert to yearly screening mammography in one year. The findings recommendations were given to the patient by the waste reduction coordinator at the time the examination. IMPRESSION: Right breast: Category 1. Left breast: Category 1. FINAL ASSESSMENT: BILATERAL BREASTS - Category 1 - Negative. These results will be communicated to your patient via a lay letter PAGE 1 Signed Report (CONTINUED) from Radiology. If any additional imaging is needed we willcontact your patient directly. REPORT SIGNED IN OTHER VENDOR SYSTEM 04/01/2018 Reported By: Kun Evans MD CC: Velma Mae MD Transcribed Date/Time: 03/31/2018 (1523) Leasing Sales Consultant: Printed Date/Time: 03/20/2019 (9120) PAGE 2 Signed Report Stoney Gutierrez MD IMG MAMMOGRAPHY GRISEL LIGHT documented in this encounter Visit Diagnoses Not on filedocumented in this encounter Care Teams Chronometer Assembler And Adjuster Relationship Specialty Start Date End Date Rusty Malik MD PCP - General 12/05/16 08/28/18 Unknown, Provider, PCP - General 08/29/18 07/03/22 documented as of this encounter
--- OUTSIDE RECORDS SUMMARY | 2024-05-14 11:10 | XMS_ITS | Encounter Summary ---
Author Organization [facility] Address [address] [place] [address] Care Team Providers Care Bilingual Executive Assistant Name Role Phone Shaun Valero MD Primary Care Provider Unav ailable Reason for Visit * Reason Onset Date Comments Medications Refill 11/03/2013 Encounter Details Date Type Department Care Team (Late st Contact Info) Description 11/03/[address] [id number] Shaun Valero MD Medications Refill Social History [...] Da te metoprolol XL (TOPROL-XL) 25 mg tabletIndications:Hyperten sive disorder Take 1 Tab by mouth daily. 14 Tab 0 11/03/2013 06/04/2014 documented in this encounter Miscellaneous Notes * Telephone Encounter - Ritu Bloom - 11/03/2013 1152 EST Pt is on vacation and she is going to run out of medication because her fell and broke his ankle. They should be home within a week or so but she needs to have some metoprolol called in to the local pharmacy - probably 10 pills would suffice. I loaded the pharmacy that she wanted the medication sent to. documented in this encounter Plan of Treatment Not on file documented as of this encounter Visit Diagnoses Diagnosis Hypertensive disorder- Primary Unspecified essential hypertension documented in this encounter Discontinued Medications Medication Sig Discontinue Reason Start Date End Da te metoprolol XL (TOPROL-XL) 25 mg tabletIndications:Hyperte nsive disorder Take 1 Tab by mouth daily. Reorder 07/01/2013 11/03/2013 documented as of this encounter Care Teams Bilingual Executive Assistant Relationship Specialty Start Date End Date Shaun Valero MD PCP - General 08/16/09 06/07/15 documented as of this encounter
--- OUTSIDE RECORDS SUMMARY | 2024-05-14 11:10 | XMS_ITS | Encounter Summary ---
Author Organization [facility] Address [address] [place] [address] Care Team Providers Care Paranormal Investigator Name Role Phone Rusty Malik MD Primary Care Provider [phone] Encounter Details Date Type Department Care Team (Late st Contact Info) Description 07/10/[address] [id number] Rusty Malik MD [address] [place] [address] MD [place] [phone] Social History Tobacco Use Types Packs/Day Years [...] encounter Results * COLONOSCOPY PROCEDURE (07/03/2018) Colonoscopy EXTERNAL FACILITY Colonoscopy, External EXTERNAL FACILITY Comment:Hx of Polyps- Repeat 5 years Anatomical Region Laterality Modality Endoscopy Historical Provider GI PROCEDURE GRISEL LIGHT documented in this encounter Visit Diagnoses Not on filedocumented in this encounter Care Teams Paranormal Investigator Relationship Specialty Start Date End Date Rusty Malik MD PCP - General 12/05/16 08/28/18 documented as of this encounter
--- OUTSIDE RECORDS SUMMARY | 2024-05-14 11:10 | XMS_ITS | Encounter Summary ---
Author Organization [facility] Address [address] [place] [address] Care Team Providers Care Clinical Assessment Manager Name Role Phone Pema Antoine MD Primary Care Provider Reason for Referral * Radiology Services (Routine/Next Available) - Authorization Not Required Specialty Diagnoses / Procedures Referred By Mo pardo Referred To Contact Diagnoses Encounter for screening mammogram for malignant neoplasm of breast Procedures MA BREAST SCREENING BRANDY BILATERAL Pema Antoine MD [address] [place] [address] [facility] [place]erral ID Status Reason Start Date Expiration Date Visits Requested Visits Authorized [id number] Authorization Not Required 06/08/2022 1 1 Reason for Visit * Radiology Services (Routine/Next Available) - Authorization Not Required Specialty Diagnoses / Procedures Referred By Mo pardo Referred To Contact Diagnoses Encounter for screening mammogram for malignant neoplasm of breast Procedures MA BREAST SCREENING BRANDY BILATERAL Pema Antoine MD [address] [place] [address] [facility] Referral ID Status Reason Start Date Expiration Date Visits Requested Visits Authorized [id number] Authorization Not Required 06/08/2022 1 1 Encounter Details Date Type Department Care Team (Latest Contact Info) Description 07/04/2022 13:05 EDT - 07/04/2022 23:59 EDT Hospital Encounter [facility] [place] [address] [place], [place] [address] Encounter for screening mammogram for malignant neoplasm of breast Discharge Disposition: Home or Self Care Social [...] ORAL) Take 1 Cap by mouth daily. doxycycline (VIBRAMYCIN) 50 mg capsule Take 50 mg by mouth every 48 hours. 03/16/2022 IBUPROFEN (ADVIL ORAL) Take by mouth. losartan (COZAAR) 100 mg tablet Take 100 mg by mouth daily. 01/29/2022 Lutein 20 mg capsule Take 20 mg by mouth daily. metoprolol SUCCinate (TOPROL-XL) 50 mg tablet Take 50 mg by mouth daily. 02/28/2022 simvastatin (ZOCOR) 80 mg tablet Take 80 mg by mouth daily. 02/23/2022 documented as of this encounter Discharge Disposition Disposition Code Departure Means Destination Home or Self Care documented in this encounter Plan of Treatment [...] Diagnosis Comments MA BREAST SCREENING BRANDY BILATERAL Routine 07/04/2022 13:25 EDT Encounter for screening mammogram for malignant neoplasm of breast documented in this encounter Results * MA BREAST SCREENING BRANDY BILATERAL (07/04/2022 13:25 EDT) Anatomical Region Laterality Modality Breast Bilateral Mammography 07/05/2022 14:4 0 EDT Impressions 07/05/2022 14:40 EDT Negative, no evidence of malignancy. RECOMMENDATION: Routine screening mammography is recommended. OVERALL ASSESSMENT: BI-RADS 1: Negative These results will be communicated to your patient via a lay letter from Radiology. If any additional imaging is needed we will contact your patient directly. Narrative 07/05/2022 14:40 EDT MA BREAST SCREENING BRANDY BILATERAL ??07/04/2022 1:30 PM History: Bilateral routine screening Comparison: ??Comparison has been made to previous images. Technique: Routine 3D tomosynthesis with synthesized 2D views with CAD Bilateral Breast Composition: There are scattered areas of fibroglandular density. Bilateral Breast Findings: ??No significant masses, calcifications or other abnormalities are seen. Procedure Note Heber Balderas MD - 07/05/2022 MA BREAST SCREENING BRANDY BILATERAL 07/04/2022 1:30 PM History: Bilateral routine screening Comparison: Comparison has been made to previous images. Technique: Routine 3D tomosynthesis with synthesized 2D views with CAD Bilateral Breast Composition: There are scattered areas of fibroglandulardensity. Bilateral Breast Findings: No significant masses, calcifications or otherabnormalities are seen. IMPRESSION Negative, no evidence of malignancy. RECOMMENDATION: Routine screening mammography is recommended. OVERALL ASSESSMENT: BI-RADS 1: Negative These results will be communicated to your patient via a lay letter fromRadiology. If any additional imaging is needed we will contact yourpatient directly. Pema Antoine MD IMG MAMMOGRAPHY [facility] documented in this encounter Visit Diagnoses Diagnosis Encounter for screening mammogram for malignant neoplasm of breast Other screening mammogram documented in this encounter Care Teams Clinical Assessment Manager Relationship Specialty Start Date End Date Pema Antoine MD [address] [place] [address] PCP - General 07/04/22 documented as of this encounter
--- OUTSIDE RECORDS SUMMARY | 2024-05-14 11:10 | XMS_ITS | Encounter Summary ---
Author Organization [facility] Address [address] [place] [address] Care Team Providers Care Revenue Inspector Name Role Phone Unknown, Provider Primary Care Provider Encounter Details Date Type Department Care Team (Latest Contact Info) Description 06/15/2021 Travel Social History Tobacco Use Types Packs/Day [...] 14:40 EDT documented as of this encounter Functional [...] on filedocumented in this encounter Care Teams Revenue Inspector Relationship Specialty Start Date End Date Unknown, Provider, PCP - General 08/29/18 07/03/22 documented as of this encounter
--- OUTSIDE RECORDS SUMMARY | 2024-05-14 11:10 | XMS_ITS | Encounter Summary ---
Author Organization [facility] Address [address] [place] [address] Care Team Providers Care Foreign Agent Name Role Phone Shaun Valero MD Primary Care Provider Unav ailable Encounter Details Date Type Department Care Team (Late st Contact Info) Description 06/09/2014 Results Only [facility] Medicine [address] [address] Shaun Valero MD Social History Tobacco Use [...] Date/Time Associated Diagnosis Comments BASIC METABOLIC PANEL ([facility]) Routine 06/09/2014 8:00 EDT ALT Routine 06/09/2014 8:00 EDT LIPID PROFILE (INCLUDES CHOLESTEROL, TRIGLYCERIDES, HDL, LDL) Routine 06/09/2014 8:00 EDT documented in this encounter Results * ALT (06/09/2014 8:00 EDT) ALT, External 22 12 - 78 U/L [facility] 06/09/2014 8:00 EDT 06/09/2014 8:00 EDT Narrative [facility] - 06/09/2014 8:54 EDT Does PT Have a Latex Allergy? YES Shaun Valero MD CHEMISTRY & BLOOD G ORDERABLES Performing Organization Address [facility] de Phone Number [facility] * (ABNORMAL) LIPID PROFILE (INCLUDES CHOLESTEROL, TRIGLYCERIDES, HDL, LDL) (06/09/2014 8:00 EDT) Triglycerides, External 98 35 - 150 mg/dL [facility] Cholesterol, External 206(H) 120 - 200 mg/dL [facility] Chol/HDL Ratio, External 2.9 0 - 4.5 [facility] Comment: DESIRABLE RATIO IS LESS THAN 4.1 PATIENTS ARE CONSIDERED AT RISK: WOMEN RATIO >5 MEN RATIO >6 Fasting?, External Yes [facility] HDL, External 70(H) 40 - 60 mg/dL [facility] LDL, External 116(H) 60 - 100 mg/dL [facility] Non HDL Chol, External 136 mg/dl [facility] Comment: Desirable: ?Less than 130 Borderline High: ??130-159 High: ? 160-189 Very High: ?Greater than or equal to 190 06/09/2014 8:00 EDT 06/09/2014 8:00 EDT Narrative [facility] - 06/09/2014 8:54 EDT Does PT Have a Latex Allergy? YES Shuan Valero MD CHEMISTRY & BLOOD G ORDERABLES Performing Organization Address [facility] Co de Phone Number [facility] * (ABNORMAL) BASIC METABOLIC PANEL ([facility]) (06/09/2014 8:00 EDT) Bun, External 31(H) 7 - 18 mg/dL [facility] Calcium, External 9.5 8.5 - 10.1 mg/dL [facility] Chloride, External 105 98 - 107 mEq/L [facility] CO2, External 28 21 - 32 mEq/L [facility] Creatinine, External 1.1 0.5 - 1.4 mg/dL [facility] GFR, Kahlil/Est., External 53 [facility] Comment: Stage 3: Moderate renal impairment is defined as GFR 30-59 Multiply result by 1.210 for patients. Glucose, Serum, External 97 70 - 100 mg/dL [facility] Potassium, External 4.1 3.5 - 5.0 mEq/L [facility] Sodium, External 139 135 - 145 mEq/L [facility] 06/09/2014 8:00 EDT 06/09/2014 8:00 EDT Narrative [facility] - 06/09/2014 8:54 EDT Does PT Have a Latex Allergy? YES Shaun Valero MD CHEMISTRY & BLOOD G ORDERABLES [facility] documented in this encounter Visit Diagnoses Not on filedocumented in this encounter Care Teams Foreign Agent Relationship Specialty Start Date End Date Shaun Valero MD PCP - General 08/16/09 06/07/15 documented as of this encounter
--- OUTSIDE RECORDS SUMMARY | 2024-05-14 11:10 | XMS_ITS | Encounter Summary ---
Author Organization [facility] Address [address] [place] [address] Care Team Providers Care Epic Professional Name Role Phone Shaun Valero MD Primary Care Provider Velma Rey MD Primary Care Provid er Rusty Malik MD Primary Care Provider [phone] Unknown, Provider Primary Care Provider [phone] Encounter Details Date Type Department Care Team (Late st Contact Info) Description 07/03/2013 Historical Results Only [facility] - Main [address] [id number] Stuart Duke MD [address] [place] [phone] Social History Tobacco Use Types Packs/Day Years [...] Name Priority Date/Time Associated Diagnosis Comments PAP TEST Routine 07/03/2013 documented in this encounter Results * PAP TEST (07/03/2013) 07/03/2013 07/04/2013 15: 49 EDT Narrative [facility] - 07/10/2013 17:29 EDT ----- ------- Name: NURY KAMARA ?: 46 ?Age/Sex: 69/F ?Unit#: [id number] ? Loc: LAB.OPX ? Status: REG REF ?? Reg Date: 07/03/13 ? Pt.Phone Number: ? ----- ------- Specimen: [id number] ?STATUS: SOUT ?Spec Date:07/03/13 ? Physician Copies: ?Stuart Duke Tissues: ? Cervical/Endo Pap ? CPT: 21710 ?? Units: ??1 ----- ------- ? CYTOLOGY DIAGNOSIS SPECIMEN ADEQUACY: ?Satisfactory for evaluation. Transformation zone component present. GENERAL CATEGORIZATION: ?Negative for Intraepithelial Lesion or Malignancy DESCRIPTIVE DIAGNOSIS: ??Reactive cellular changes associated with inflammation present (includes typical repair). RECOMMENDATIONS/COMMENTS: ?None. ----- ------- ORDER QUERIES: LMP: ? - POST ADRIA ? Post ?PREVIOUS ATYPICAL: ?? BCP/HRT? ?? Rad Rx? ?? IUD?PAP PLUS HPV?REFLEX TO HR-HPV IF ASCUS ?? REFLEX TO HPV 16/18 IF HPV POS/PAP NEG ?? HPV REGARDLESS?RFLX HPV IF LSIL ?? Signed ____(signature on file)____ Justyna Altamirano M.D. 07/10/13 By the signature above, the attending physician certifies that he/she has personally conducted a gross and/or microscopic examination of the described specimens and rendered or confirmed the above diagnosis. Test Performed by [facility], [address] [address] Energy Trading Analyst: Justyna Altamirano MD PHD ----- ------- Stuart Duke MD PATHOLOGY ORDERABL ES [facility] documented in this encounter Visit Diagnoses Not on filedocumented in this encounter Care Teams Epic Professional Relationship Specialty Start Date End Date Shaun Valero MD PCP - General 08/16/09 06/07/15 Velma Mae MD PCP - General 06/08/15 12/04/16 Rusty Malik MD PCP - General 12/05/16 08/28/18 Unknown, MD Hernan PCP - General 08/29/18 07/03/22 documented as of this encounter
--- OUTSIDE RECORDS SUMMARY | 2024-05-14 11:10 | XMS_ITS | Encounter Summary ---
Author Organization [facility] Address [address] [place] [address] Care Team Providers Care Racquet Maker Name Role Phone Shaun Valero MD Primary Care Provider Unav ailable Encounter Details Date Type Department Care Team (Late st Contact Info) Description 07/06/2014 Results Only [facility] Laboratory Services - [facility] ([facility]) [address] [place] [address] Maryann Reid MD [address] [place] [address], [address] [place] [address] Social History Tobacco Use Types Packs/Day Years [...] Diagnosis Comments PAP TEST- RESULT ONLY Routine 07/06/2014 19:00 EDT documented in this encounter Results * PAP TEST- RESULT ONLY (07/06/2014 19:00 EDT) Pathology Report, External: -- Name: NURY KAMARA Cecy ?: 46 ?Age/Sex: 64/F ?Unit#: [id number] ? Loc: AGO ? Status: REG POV ?? Reg Date: 07/06/14 ? Pt.Phone Number: ? -- Specimen: [id number] ?STATUS: SOUT ?Spec Date:07/06/14 ? Physician Copies: ?Maryann Reid ? Tissues: ? Cervical/Endo Pap ?Shaun Valero CPT: 98168 ?? Units: ??1 -- ? CYTOLOGY DIAGNOSIS SPECIMEN ADEQUACY: ?Satisfactory for evaluation. Transformation zone component present. GENERAL CATEGORIZATION: ?Negative for Intraepithelial Lesion or Malignancy DESCRIPTIVE DIAGNOSIS: ??Reactive cellular changes associated with inflammation present (includes typical repair). -- ?HPV DNA RESULTS ?? 07/06/141952 HPV DNA RESULT ??NEG ? Negative for HPV types 16, 18, 31, 33, 35, 39, 45, 51, 52, ? 56, 58, 59, 66, 68. ? Method: Cervista HPV HR (High Risk) DNA test. -- ORDER QUERIES: LMP: POST MEN- POSTMENO ? N Post ? N ??PREVIOUS ATYPICAL: N BCP/HRT? N Rad Rx? N IUD? N ??PAP PLUS HPV? Y ??REFLEX TO HR-HPV IF ASCUS N REFLEX TO HPV 16/18 IF HPV POSITIVE/PAP NEGATIVE N ??HPV TESTING REGARDLESS? N Signed Electronically Signed ? MiriamchristalGina 07/12/14 1141 ? -- [facility] 07/06/2014 19:0 0 EDT 07/07/2014 19:00 EDT Maryann Reid MD PATHOLOGY ORDERABLES [facility] documented in this encounter Visit Diagnoses Not on filedocumented in this encounter Care Teams Racquet Maker Relationship Specialty Start Date End Date Shaun Valero MD PCP - General 08/16/09 06/07/15 documented as of this encounter
--- OUTSIDE RECORDS SUMMARY | 2024-05-14 11:10 | XMS_ITS | Encounter Summary ---
Author Organization [facility] Address [address] [place] [address] Care Team Providers Care Refinery Operator Reforming Unit Name Role Phone Velma Mae MD Primary Care Provid er Reason for Visit * Reason Comments Other Encounter Details Date Type Department Care Team (Late st Contact Info) Description 09/17/[address] [place] [id number] Velma Mae MD [address] [place] [phone] Other Social History Tobacco Use Types Packs/Day [...] on filedocumented in this encounter Care Teams Refinery Operator Reforming Unit Relationship Specialty Start Date End Date Velma Mae MD PCP - General 06/08/15 12/04/16 documented as of this encounter
--- OUTSIDE RECORDS SUMMARY | 2024-05-14 11:10 | XMS_ITS | Encounter Summary ---
Author Organization [facility] Address [address] [place] [address] Care Team Providers Care Finished Cloth Examiner Name Role Phone Shaun Valero MD Primary Care Provider Unav ailable Encounter Details Date Type Department Care Team (Late st Contact Info) Description 07/13/2013 Results Only [facility] Medicine [address] [address] Shaun Valero MD Social History Tobacco Use [...] Diagnosis Comments BASIC METABOLIC PANEL ([facility]) Routine 07/13/2013 8:36 EDT ALT Routine 07/13/2013 8:36 EDT documented in this encounter Results * ALT (07/13/2013 8:36 EDT) ALT, External 22 12 - 78 U/L [facility] 07/13/2013 8:36 EDT 07/13/2013 8:36 EDT Narrative [facility] - 07/13/2013 9:42 EDT Does PT Have a Latex Allergy? YES Medical Necessity NA Shaun Valero MD CHEMISTRY & BLOOD G ORDERABLES [facility] * (ABNORMAL) BASIC METABOLIC PANEL ([facility]) (07/13/2013 8:36 EDT) Bun, External 43(H) 7 - 18 mg/dL [facility] Calcium, External 9.1 8.5 - 10.1 mg/dL [facility] Chloride, External 111(H) 98 - 107 mEq/L [facility] CO2, External 28 21 - 32 mEq/L [facility] Creatinine, External 1.0 0.5 - 1.4 mg/dL [facility] GFR, Kahlil/Est., External 59 [facility] Comment: Stage 3: Moderate renal impairment is defined as GFR 30-59 Multiply result by 1.210 for patients. Glucose, Serum, External 99 70 - 100 mg/dL [facility] Potassium, External 4.4 3.5 - 5.0 mEq/L [facility] Sodium, External 144 135 - 145 mEq/L [facility] 07/13/2013 8:36 EDT 07/13/2013 8:36 EDT Narrative [facility] - 07/13/2013 9:42 EDT Does PT Have a Latex Allergy? YES Medical Necessity NA Shaun Valero MD CHEMISTRY & BLOOD G ORDERABLES Performing Organization Address [facility] Co de Phone Number [facility] documented in this encounter Visit Diagnoses Not on filedocumented in this encounter Care Teams Finished Cloth Examiner Relationship Specialty Start Date End Date Shaun Valero MD PCP - General 08/16/09 06/07/15 documented as of this encounter
--- OUTSIDE RECORDS SUMMARY | 2024-05-14 11:10 | XMS_ITS | Encounter Summary ---
Author Organization [facility] Address [address] [place] [address] Care Team Providers Care Salad Counter Attendant Name Role Phone Velma Mae MD Primary Care Provid er Rusty Malik MD Primary Care Provider [phone] Unknown, Provider Primary Care Provider [phone] Reason for Visit * Reason Onset Date Comments Other 06/19/2016 Encounter Details Date Type Department Care Team (Late st Contact Info) Description 06/19/2016 Telephone [facility] Ophthalmology - [address] [id number] Stuart Cyr MD [address] [facility], [address] [place] [address] Other Social History Tobacco Use Types Packs/Day [...] encounter Miscellaneous Notes * Telephone Encounter - Lashon Kelly OTA - 06/19/2016 0907 EDT As of 06/19/2016 9:07: Nature of problem? Flashes of light, mostly in the dark, left eye, group of floaters, more like a shadow, no curtain Onset and Duration? 1 day Is this an injury? No Pain? 0/10 Have you recently had eye surgery? Cataract surgery 2 years ago Are you having flashes/and or floaters? yes Any sensitivity to light? yes Any loss of vision/curtain/darkness/veil? No veil Any change in vision/double vision/blurred? no Any redness? no Do you wear contact lenses? no Who is your usual eye doctor? Dr Cyr and MD in [place] Phone Number of Eye Doctor (if not FACP) Any other pertinent information? No DM, uses AT's (Please remember that a physician must approve if you are telling the patient to wait for an appointment.) Where are you now? (i.e. home/close to our office/out of town, etc.) 90 minutes , in [place] If the MD needs to see you today, how long would it take you to get to our office What is the best phone number for us to speak to you in the next two hours? (VERIFY THE PHONE NUMBERS REGARDLESS OF WHAT IS IN THE SYSTEM.) [phone], [phone] (Please remember to ask the MD what he/she needs from the paper chart.) Referred patient to Rosetta De León (on-call MD) as SP is fully booked and this is a new patient (not seen since 2011). * Telephone Encounter - Michael Roche - 06/19/2016 0655 EDT PAS Message: Seeing flashes of light in the left eye. In between the flashes, seeing dark shadows. Would like a call back when the office opens. Concerned about her eye sight. documented in this encounter Plan of Treatment [...] on filedocumented in this encounter Care Teams Salad Counter Attendant Relationship Specialty Start Date End Date Velma Mae MD PCP - General 06/08/15 12/04/16 Rusty Malik MD PCP - General 12/05/16 08/28/18 Unknown, MD Hernan PCP - General 08/29/18 07/03/22 documented as of this encounter
--- OUTSIDE RECORDS SUMMARY | 2024-05-14 11:10 | XMS_ITS | Encounter Summary ---
Author Organization [facility] Address [address] [place] [address] Care Team Providers Care Evp Sales Name Role Phone Shaun Valero MD Primary Care Provider Velma Rey MD Primary Care Provid er Rusty Malik MD Primary Care Provider [phone] Unknown, Provider Primary Care Provider [phone] Encounter Details Date Type Department Care Team (Late st Contact Info) Description 07/06/2014 Historical Results Only [facility] - Main [place] [address] [place] [address] Maryann Reid MD [address] [place] [address], [address] [place] [address] Social History Tobacco Use Types [...] Date/Time Associated Diagnosis Comments PAP TEST Routine 07/06/2014 19:00 EDT documented in this encounter Results * PAP TEST (07/06/2014 19:00 EDT) 07/06/2014 19:0 0 EDT 07/07/2014 19:00 EDT Narrative [facility] - 07/12/2014 11:41 EDT ----- ------- Name: NURY KAMARA ?: 46 ?Age/Sex: 69/F ?Unit#: [id number] ? Loc: AGO ? Status: REG POV ?? Reg Date: 07/06/14 ? Pt.Phone Number: ? ----- ------- Specimen: [id number] ?STATUS: SOUT ?Spec Date:07/06/14 ? Physician Copies: ?Maryann Reid MD ?? Tissues: ? Cervical/Endo Pap ?Shaun Valero MD CPT: 23264 ?? Units: ??1 ----- ------- ? CYTOLOGY DIAGNOSIS SPECIMEN ADEQUACY: ?Satisfactory for evaluation. Transformation zone component present. GENERAL CATEGORIZATION: ?Negative for Intraepithelial Lesion or Malignancy DESCRIPTIVE DIAGNOSIS: ??Reactive cellular changes associated with inflammation present (includes typical repair). ----- ------- ?HPV DNA RESULTS ?? 07/06/141952 HPV DNA RESULT ??NEG ? Negative for HPV types 16, 18, 31, 33, 35, 39, 45, 51, 52, ? 56, 58, 59, 66, 68. ? Method: Cervista HPV HR (High Risk) DNA test. ----- ------- ORDER QUERIES: LMP: POST MEN- POSTMENO ? N Post ? N ??PREVIOUS ATYPICAL: N BCP/HRT? N Rad Rx? N IUD? N ??PAP PLUS HPV? Y ??REFLEX TO HR-HPV IF ASCUS N REFLEX TO HPV 16/18 IF HPV POS/PAP NEG N HPV REGARDLESS? N ??RFLX HPV IF LSIL ?? Signed ____(signature on file)____ Gina Vasquez MD 07/12/14 By the signature above, the attending physician certifies that he/she has personally conducted a gross and/or microscopic examination of the described specimens and rendered or confirmed the above diagnosis. Test Performed by [facility], [address] [place] [address] Cover Inspector: Justyna Altamirano MD PHD ----- ------- Maryann Reid MD PATHOLOGY ORDERABLES [facility] documented in this encounter Visit Diagnoses Not on filedocumented in this encounter Care Teams Evp Sales Relationship Specialty Start Date End Date Shaun Valero MD PCP - General 08/16/09 06/07/15 Velma Mae MD PCP - General 06/08/15 12/04/16 Rusty Malik MD PCP - General 12/05/16 08/28/18 Unknown, ProviderMD PCP - General 08/29/18 07/03/22 documented as of this encounter
--- OUTSIDE RECORDS SUMMARY | 2024-05-14 11:10 | XMS_ITS | Encounter Summary ---
Author Organization [facility] Address [address] [place] [address] Care Team Providers Care Bioinformatics Research Technician Name Role Phone Shaun Valero MD Primary Care Provider Unav ailable Reason for Referral * Consult (3 - 10 Business Days) - Closed Specialty Diagnoses / Procedures Referred By Mo pardo Referred To Contact Diagnoses Knee sprain Shaun Valero MD [address] [place] [address] [address] [place] [id number] Referral ID Status Reason Start Date Expiration Date V isits Requested Visits Authorized [id number] Closed Specialty Services Required 06/25/2014 1 1 Question Answer Reason for Request: right knee sprain, reduced mobility Comments GMO She leaves [place] 07/29. Reason for Visit * Reason Onset Date Comments Knee Pain 06/25/2014 Encounter Details Date Type Department Care Team (Late st Contact Info) Description 06/25/2014 Telephone [facility] Family Medicine - [address] [address] Shaun Valero MD Knee Pain Social History Tobacco Use Types Packs/Day Years Used Date Smoking Tobacco: Former Alcohol Use Standard Drinks/Week Comments Yes 1 (1 standard drink = 0.6 oz pur e alcohol) Sex and Gender Information Value Date Recorded Sex Assigned at Not on file Gender Identity Not on file Sexual Orientation Not on file documented as of this encounter Miscellaneous Notes * Telephone Encounter - Akilah Dowd - 06/25/2014 1219 EDT Pt called back and I relayed the message. She would like the referral to Dr. Nathan or Bryan. Pleasenote on the referral that she leaves for [place] on 07/29. * Telephone Encounter - Sammi Andujar RN - 06/25/2014 1133 EDT LMTCB * Telephone Encounter - Shaun Valero MD - 06/25/2014 1120 EDT Referral to orthopedics would be next step. I'll be glad to make this referral if she will be in [place] during the next month. She can see Dr. Telles, Dr. Adams, Dr. Nathan or someone at the [facility]. * Telephone Encounter - Vanessa Viera RN - 06/25/2014 1109 EDT Rehab called Diana black [phone] they will fax nots-I will put on your desk when they arrive Justyna Viera RN * Telephone Encounter - Erin Munoz - 06/25/2014 1058 EDT Reason for Call: Knee Pain Summary/Symptoms: Patient reports that the Physical therapist that she saw on 06/23 doesn't feel that she can help her and indicated that the patient should call here for further advice. It may have sounded to the patient like she needs a referral to orthopedics, but not sure about that. Do we have that second visit yet because it's not been scanned? Please call with information. Onset and Duration? saturday Appointment Offered? No Erin Munoz 06/25/2014 10:58 documented in this encounter Plan of Treatment Scheduled Referrals Name Type Priority Associated Diagnoses Order Schedule AMB CONS/FOLLOW UP ORTHOPEDICS Outpatient Referral Routine Knee sprain Ordered: 06/25/2014 documented as of this encounter Visit Diagnoses Diagnosis Knee sprain- Primary Sprain and strain of unspecified site of knee and leg documented in this encounter Care Teams Bioinformatics Research Technician Relationship Specialty Start Date End Date Shaun Valero MD PCP - General 08/16/09 06/07/15 documented as of this encounter
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
--- OUTSIDE RECORDS SUMMARY | 2024-05-14 11:10 | XMS_ITS | Encounter Summary ---
Author Organization [facility] Address [address] [place] [address] Care Team Providers Care Mail Technician Name Role Phone Shaun Valero MD Primary Care Provider Unav ailable Encounter Details Date Type Department Care Team (Latest Contact Info) Description 04/14/2015 19:36 EDT - 04/14/2015 23:59 EDT Hospital Encounter [facility] [address] [place] [address] Unknown, Provider, Discharge Disposition: Home or Self [...] day 03/20/2022 metoprolol XL (TOPROL-XL) 25 mg tabletIndications:Hypert ensive disorder Take 1 Tab by mouth daily. 90 Tab 4 06/04/2014 06/23/2015 simvastatin (ZOCOR) 40 mg tablet Take 1 Tab by mouth every evening. 90 Tab 4 06/04/2014 06/23/2015 documented as of this encounter Discharge Disposition Disposition Code Departure Means Destination Home or Self [facility] documented in this encounter Plan of Treatment Not on file documented as of this encounter Visit Diagnoses Not on filedocumented in this encounter Care Teams Mail Technician Relationship Specialty Start Date End Date Shaun Valero MD PCP - General 08/16/09 06/07/15 documented as of this encounter
--- OUTSIDE RECORDS SUMMARY | 2024-05-14 11:10 | XMS_ITS | Encounter Summary ---
Author Organization [facility] Address [address] [place] [address] Care Team Providers Care Fluid Dynamicist Name Role Phone Unknown, Provider Primary Care Provider [phone] Pema Antoine MD Primary Care Provider [phone] Reason for Visit * Reason Onset Date Comments Patient Information Update 03/22/2021 Encounter Details Date Type Department Care Team (Late st Contact Info) Description 03/22/2021 Telephone [facility] Orthopedics & Sport Medicine [address], [address] [place], [place] [id number] Sourav Nathan MD [address] [facility] [address] [place] [address] Patient Information Update Social History Tobacco Use Types Packs/Day Years [...] encounter Miscellaneous Notes * Telephone Encounter - Sourav Nathan MD - 03/22/2021 1622 EDT Perfect thx * Telephone Encounter - Briana Jackson, SERAFIN - 03/22/[address] Nathan - YOBANY * Telephone Encounter - Graciela Campbell - 03/22/2021 1535 EDT Patient called in to tell Dr. Nathan that everything was great. She is very happy and said to say Thank You very much documented in this encounter Plan of Treatment [...] on filedocumented in this encounter Care Teams Fluid Dynamicist Relationship Specialty Start Date End Date Unknown, MD Hernan PCP - General 08/29/18 07/03/22 Pema Antoine MD [address] [place] [address] PCP - General 07/04/22 documented as of this encounter
--- OUTSIDE RECORDS SUMMARY | 2024-05-14 11:10 | XMS_ITS | Encounter Summary ---
Author Organization [facility] Address [address] [place] [address] Care Team Providers Care Founder Ceo & President Name Role Phone Rusty Malik MD Primary Care Provider [phone] Encounter Details Date Type Department Care Team (Late st Contact Info) Description 02/06/[address] [id number] Rusty Malik MD [address] [place] [address] MD [place] [phone] Social History Tobacco Use [...] Procedure Name Priority Date/Time Associated Diagnosis Comments URINE [id number] RATIO (ACR) Routine 08/17/2016 COMPLETE BLOOD COUNT AND DIFFERENTIAL Routine 08/17/2016 TSH Routine 08/17/2016 LIPID PROFILE (INCLUDES CHOLESTEROL, TRIGLYCERIDES, HDL, LDL) Routine 08/17/2016 COMPREHENSIVE METABOLIC PANEL (CMP) Routine 08/17/2016 documented in this encounter Results * LIPID PROFILE (INCLUDES CHOLESTEROL, TRIGLYCERIDES, HDL, LDL) (08/17/2016) Cholesterol, External 204 EXTERNAL LAB Triglycerides, External 85 EXTERNAL LAB HDL, External 74 EXTERNAL LAB LDL, External 113 EXTERNAL LAB Chol/HDL Ratio, External 2.8 EXTERNAL LAB Fasting?, External EXTERNAL LAB Blood specimen (specimen) 08/17/2016 Historical Provider CHEMISTRY & BLOOD GAS ORDERABLES EXTERNAL LAB * TSH (08/17/2016) TSH, External 2.16 EXTERNAL LAB Blood specimen (specimen) 08/17/2016 Historical Provider CHEMISTRY & BLOOD GAS ORDERABLES EXTERNAL LAB * HEMAGRAM AND DIFFERENTIAL (08/17/2016) WBC, External 7.3 EXTERNAL LAB RBC, External 4.83 EXTERNAL LAB Hemoglobin, External 15.0 EXTERNAL LAB HCT, External 46.1 EXTERNAL LAB MCV, External 95.5 EXTERNAL LAB MCH, External 31 EXTERNAL LAB MCHC, External 32.5 EXTERNAL LAB PLT, External 205 EXTERNAL LAB RDW-CV, External 13.7 EXTERNAL LAB Neutrophils, External EXTERNAL LAB Lymphocytes, External 23.1 EXTERNAL LAB Monocytes, External 6.7 EXTERNAL LAB Eosinophils, External 3.5 EXTERNAL LAB Basophils, External 0.5 EXTERNAL LAB ABS Neutrophils, External EXTERNAL LAB ABS Lymphs, External EXTERNAL LAB ABS Monocytes, External 489 EXTERNAL LAB ABS Eosinophils, External EXTERNAL LAB ABS Basophils, External EXTERNAL LAB Blood specimen (specimen) 08/17/2016 Historical Provider PACKAGES & DNA MN OBE ORDERABLES EXTERNAL LAB * COMPREHENSIVE METABOLIC PANEL (CMP) (08/17/2016) GFR, [...] Historical Provider CHEMISTRY & BLOOD GAS ORDERABLES Performing Organization Address [facility]/ZIP Co de Phone Number EXTERNAL LAB * ALBUMIN, URINE (08/17/2016) Microalb ug/mg Crea, External 3 EXTERNAL LAB Microalb mg/dl, External 0.4 EXTERNAL LAB Creatinine, Random U (UCRR), External 160 EXTERNAL LAB Urine specimen (specimen) 08/17/2016 Historical Provider CHEMISTRY & BLOOD GAS ORDERABLES EXTERNAL LAB documented in this encounter Visit Diagnoses Not on filedocumented in this encounter Care Teams Founder Ceo & President Relationship Specialty Start Date End Date Rusty Malik MD PCP - General 12/05/16 08/28/18 documented as of this encounter
--- OUTSIDE RECORDS SUMMARY | 2024-05-14 11:10 | XMS_ITS | Encounter Summary ---
Author Organization [facility] Address [address] [place] [address] Care Team Providers Care Senior Storage Administrator Name Role Phone Rusty Malik MD Primary Care Provider [phone] Encounter Details Date Type Department Care Team (Latest Contact Info) Description 03/31/2018 12:36 EDT - 03/31/2018 23:59 EDT Hospital Encounter [facility] [address] [place] [address] Unknown, Provider, Discharge Disposition: Home or Self [...] Code Departure Means Destination Home or Self Usp documented in this encounter Plan of Treatment [...] filedocumented in this encounter Care Teams Senior Storage Administrator Relationship Specialty Start Date End Date Rusty Malik MD PCP - General 12/05/16 08/28/18 documented as of this encounter
--- OUTSIDE RECORDS SUMMARY | 2024-05-14 11:11 | XMS_ITS | Encounter Summary ---
Author Organization [facility] Address [address] [place] [address] Care Team Providers Care Enforcement Manager Name Role Phone Shaun Valero MD Primary Care Provider Unav ailable Reason for Referral * (Routine) - Closed Specialty Diagnoses / Procedures Referred By Mo pardo Referred To Contact Diagnoses Abdominal pain Procedures BACTERIAL CULTURE, URINE Padma Floyd FNP [address] [facility] [address] [address] Referral ID Status Reason Start Date Expiration Date Visits Re quested Visits Authorized [id number] Closed 07/04/2010 1 1 Reason for Visit * Reason Comments Urinary Tract Infection has alot of rlq pain,feels pressure when she urinates. Encounter Details Date Type Department Care Team (Late st Contact Info) Description 07/04/2010 11:20 EDT Office Visit [facility] Medicine [facility] [address] [facility] [address] [place], [place] [id number] Padma Floyd FNP [address] [facility] [address] [phone] Abdominal pain (Primary Dx) Social History Tobacco Use Types Packs/Day Years Used Date Smoking Tobacco: Former Alcohol Use Standard Drinks/Week Comments Not Asked 0 (1 standard drink = 0.6 oz pur e alcohol) Sex and Gender Information Value Date Recorded Sex Assigned at Not on file Gender Identity Not on file Sexual Orientation Not on file documented as of this encounter Last Filed Vital Signs Vital Sign Reading Time Taken Comments Blood Pressure 120/80 07/04/2010 1123 EDT Pulse 78 07/04/2010 1123 EDT Temperature 36.3 ??C (97.4 ??F) 07/04/2010 1123 EDT Respiratory Rate - - Oxygen Saturation - - Inhaled Oxygen Concentration - - Weight - - Height - - Body Mass Index - - documented in this encounter Ordered Prescriptions Prescription Sig Dispensed Refills Start Date End Da te sulfamethoxazole-trimethop rim (BACTRIM SS, SEPTRA) 400-80 mg per tabletIndications:Abdomina l pain Take 1 Tab by mouth 2 times daily. 8 Tab 0 07/04/2010 08/21/2010 documented in this encounter Progress Notes * Padma Floyd, WATER RESOURCE ENGINEERING SPECIALIST - 07/04/2010 1142 EDT Subjective: Patient ID: Nury Roberts is an 60 y.o. female. Chief Complaint Patient presents with ??? Urinary Tract Infection has alot of rlq pain,feels pressure when she urinates. Urinary Tract Infection This is a new problem. The current episode started in the past 7 days. The problem occurs every urination. The problem has been unchanged. The quality of the pain is described as aching. The pain is moderate. There has been no fever. She is sexually active. There is no history of pyelonephritis. Associated symptoms include urgency. She has tried nothing for the symptoms. The treatment provided mild relief. There is no problem list on file for this patient. No past medical history on file. No current outpatient prescriptions on file prior to encounter. Allergies Allergen Reactions ??? No Known Drug Allergies ??? Latex, Natural Rubber rash Social History Substance Use Topics ??? Tobacco Use: Quit ??? Alcohol Use: Not on file Review of Systems Constitutional: Negative. HENT: Negative. Eyes: Negative. Respiratory: Negative. Cardiovascular: Negative. Gastrointestinal: Negative. Genitourinary: Positive for urgency. Musculoskeletal: Negative. Skin: Negative. - See HPI Objective: BP 120/80 Pulse 78 Temp(Src) 36.3 ??C (97.4 ??F) (Oral) Physical Exam Abdominal: Soft. Bowel sounds are normal. She exhibits no distension. No tenderness. Assessment: rlq pain ? UTI May be muscular. Plan: Nury was seen today for urinary tract infection. Diagnoses and associated orders for this visit: Abdominal pain - Bacterial Culture, Urine - sulfamethoxazole-trimethoprim (BACTRIM SS, SEPTRA) 400-80 mg per tablet; Take 1 Tab by mouth 2 times daily. will follow up if increasing pain and after the culture. May need to have pelvic ultrasound. documented in this encounter Plan of Treatment Scheduled Orders Name Type Priority Associated Diagnoses Orde r Schedule BACTERIAL CULTURE, URINE Microbiology Routine Abdominal pain Ordered: 07/04/2010 documented as of this encounter Procedures Procedure Name Priority Date/Time Associated Diagnosis Comments POCT URINE DIPSTICK, CLINITEK Routine 07/04/2010 11:38 EDT documented in this encounter Results * (ABNORMAL) POCT URINE DIPSTICK (07/04/2010 11:38 EDT) Color, UA Yellow POINT OF CARE Clarity, UA Clear POINT OF CARE Glucose, UA Negative Negative mg/dL POINT OF CARE Bilirubin, UA Negative Negative POINT OF CARE Ketones, UA Negative Negative mg/dL POINT OF CARE Spec Grav, UA 1.015 1.010, 1.015, 1.020, 1.025 POINT OF CARE Blood, UA Negative Negative POINT OF CARE pH, UA 5.0 4.6 - 8.0 POINT OF CARE Protein, UA Negative Negative mg/dL POINT OF CARE Urobilinogen, UA 0.2 0.2 - 1.0 E.U./dL POINT OF CARE Nitrite, UA Negative Negative POINT OF CARE Leuk Esterase Trace(A) Negative POINT OF CARE Comment POINT OF CARE Urine specimen (specimen) 07/04/2010 11:38 EDT Historical Provider POINT OF CARE BRANDY T ORDERABLES POINT OF CARE documented in this encounter Visit Diagnoses Diagnosis Abdominal pain- Primary Abdominal pain, unspecified site documented in this encounter Discontinued Medications Medication Sig Discontinue Reason Start Date End Da te simvastatin (ZOCOR) 20 mg tablet Take 20 mg by mouth at bedtime. Error 07/04/2010 desoximetasone (TOPICORT) 0.25 % cream Apply 0.25 cm topically. Apply as directed Error 04/07/2010 07/04/2010 documented as of this encounter Care Teams Enforcement Manager Relationship Specialty Start Date End Date Shaun Valero MD PCP - General 08/16/09 06/07/15 documented as of this encounter
--- OUTSIDE RECORDS SUMMARY | 2024-05-14 11:11 | XMS_ITS | Encounter Summary ---
Author Organization [facility] Address [address] [place] [address] Care Team Providers Care Pond Scaler Name Role Phone Shaun Valero MD Primary Care Provider Unav ailable Reason for Visit * Reason Onset Date Comments Labs Only 12/07/2009 Encounter Details Date Type Department Care Team (Late st Contact Info) Description 12/07/[address] [address] Shaun Valero MD Labs Only Social History Tobacco Use Types Packs/Day Years Used Date Smoking Tobacco: Never Assessed Sex and Gender Information Value Date Recorded Sex Assigned at Not on file Gender Identity Not on file Sexual Orientation Not on file documented as of this encounter Miscellaneous Notes * Telephone Encounter - Antonina Orosco LPN - 12/07/2009 1136 EST SPOKE WITH CHRISTIANO,WANTING LAB RESULTS OF LIPID PANEL AND ALT DONE IN [facility],SHE IS ALSO STILL IN [facility].WE DON'T HAVE THE RESULTS , TOLD HER TO CALL THE HOSPITAL AND THEY SHOULD GIVE HER THE RESULTS,SHE HAS BEEN OFF HER CHOLESTEROL MED AND WANTS TO KNOW IF SHE NEEDS TO GO BACK ON MED. * Telephone Encounter - Nissa Sharpe - 12/07/2009 0834 EST WANTS LAB RESULTS FROM 3 WEEKS AGO. DONE IN [place] documented in this encounter Plan of Treatment Not on file documented as of this encounter Visit Diagnoses Not on filedocumented in this encounter Care Teams Pond Scaler Relationship Specialty Start Date End Date Shaun Valero MD PCP - General 08/16/09 06/07/15 documented as of this encounter
--- OUTSIDE RECORDS SUMMARY | 2024-05-14 11:11 | XMS_ITS | Encounter Summary ---
Author Organization [facility] Address [address] [place] [address] Care Team Providers Care Core Loader Name Role Phone Shaun Valero MD Primary Care Provider Unav ailable Reason for Visit * Reason Onset Date Comments Medications Refill 11/26/2011 Encounter Details Date Type Department Care Team (Late st Contact Info) Description 11/26/[address] [address] Shaun Valero MD Medications Refill Social History [...] End Da te simvastatin (ZOCOR) 20 mg tabletIndications:Hyperlip idemia Take 1 Tab by mouth every evening. 90 Tab 3 11/26/2011 01/30/2012 documented in this encounter Plan of Treatment Not on file documented as of this encounter Visit Diagnoses Diagnosis Hyperlipidemia- Primary Other and unspecified hyperlipidemia documented in this encounter Discontinued Medications Medication Sig Discontinue Reason Start Date End Da te simvastatin (ZOCOR) 20 mg tabletIndications:Hyperli pidemia Take 1 Tab by mouth every evening. Reorder 07/27/2011 11/26/2011 documented as of this encounter Care Teams Core Loader Relationship Specialty Start Date End Date Shaun Valero MD PCP - General 08/16/09 06/07/15 documented as of this encounter
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
--- OUTSIDE RECORDS SUMMARY | 2024-05-14 11:11 | XMS_ITS | Clinical Summary ---
Author Organization [facility] Address [address] [place] [id number] Phone Care Team Providers Care Tie Hacker Name Role Phone Nafisa RIDER, Shayne Unavailable [phone] Omar GARCIA MD, Tay Kay Unavailable [phone] Sofya Jones Unavailable [phone] Brenda RIDER, Stoney PANTOJA Primary Care Provider [phone] Reason for Visit and Chief Complaint Ortho Follow Up Visit Problems Includes: Problems addressed during this encounter and other active Problems Current Visit Onset Date Resolved Date Provider Conditio n Status Dupuytren's Contracture Right 10/17/2020 Misael CAMACHO Active Last Documented On 10/17/2020 7:36AM ; [facility] Note: Unchanged Limb Pain Right Hand 10/17/2020 Misael CAMACHO Active Last Documented On 10/17/2020 7:36AM ; [facility] Note: Unchanged Trigger Finger of Right Middle Finger 10/17/2020 Misael CAMACHO Active Last Documented On 10/17/2020 7:36AM ; [facility] Note: Unchanged Past Visits Onset Date Resolved Date Provider Condition Status Hemoccult Positive Stool 09/06/2022 Shayne Skelton MD Active Last Documented On 2 10:10AM ; [facility] Personal History of Colonic Polyps (use This One) 09/06/2022 Shayne Skelton MD Active Last Documented On 2 10:11AM ; [facility] Ganglion Right Wrist 12/04/2019 Sofya LEY Active Last Documented On 0 12:34PM ; [facility] Plan of Treatment Flexor stenosis, markedly improved, is still doing well in the third finger. Recommend observation. Return in December prior to her departing the [facility], see if she requires an injection before she leaves. At the 5th finger she has Dupuytren's disease with very small cord in the finger, but no significant contracture. We recommend observation. We do not recommend Xiaflex presently. For Dupuytren's, we can see her back in 6 months when she returns from [place] next year for discussion of potential progression or need for intervention. - Last Documented On 11/25/2020 10:54AM ; [facility] Pending Tests Order Diagnosis Results Due Ordering Andrew Mckeon - Follow Up Follow up: Trigger finger, right middle finger 11/28/20 Cayetano Mckeon MD Last Documented On 1 11:55AM ; [facility] Assessments Includes: Assessments from this encounter Findings - Right Dupuytren's contracture - Last Documented On 11/25/2020 10:54AM ; [facility] - Trigger finger of the right middle finger - Last Documented On 11/25/2020 10:54AM ; [facility] - Pain in right hand - Last Documented On 11/25/2020 10:54AM ; [facility] No new x-rays required. - Last Documented On 11/25/2020 10:54AM ; [facility] Medical Equipment - Implanted Devices Includes: Current Devices No Medical Equipment Recorded Medications Includes: Medications discussed during this encounter and other current Medications Current Medications (continue as prescribed) Aspirin 81 Oral Tablet Chewable 12/04/2019 Provider: Diagnosis: Last Documented On 0 9:03AM By Brigitte Hutson ; [facility] Tetrahydrozoline HCl 0.05% Ophthalmic Solution 020 Provider: Diagnosis: Last Documented On 0 9:03AM By Brigitte Hutson ; [facility] EQL Lutein 20MG Oral Capsule 12/04/2019 Provider: Diagnosis: Last Documented On 0 9:03AM By Brigitte Hutson ; [facility] Doxycycline Monohydrate 50MG Oral Capsule 12/04/2019 Provider: Diagnosis: Last Documented On 0 9:04AM By Brigitte Hutson ; [facility] [place] 3 1200MG Oral Capsule 12/04/2019 Provider: Diagnosis: Last Documented On 0 9:04AM By Brigitte Hutson ; [facility] Toprol XL 25MG Oral Tablet Extended Release 24 Hour Provider: Diagnosis: Last Documented On 0 9:04AM By Brigitte Hutson ; [facility] Zocor 40MG Oral Tablet 12/04/2019 Provider: Diagnosis: Last Documented On 0 9:04AM By Brigitte Hutson ; [facility] Past Medications on file GaviLyte-G 236 GM Oral Solut ion Reconstituted 09/06/2022 - 10/06/2022 Provider: Shayne Skelton MD Diagnosis: use as directed Last Documented On 2 10:33AM By Miguel Braden ; [facility] Medications Administered Includes: Administered Medications from this encounter No Administered Medications Recorded Vital Signs Includes: Vital Signs from this encounter Vital Name 11/21/2020 09:20A Height (in) 64 Weight (lb) 138 Body Mass Index (kg/m2) 23.7 Body Surface Area (m2) 1.7 Pain Level 0 Last Documented On: 11/21/2020 9:20AM ; [facility] Results Includes: Results discussed during this encounter No Results Recorded For Specified Dates History of Present Illness Includes: History of Present Illness from this encounter LALO Roberts is a 70 year old female. - Allergy list reviewed - Medication reconciliation performed Ms. Roberts is a 70-year-old female for followup right third finger trigger, Dupuytren's disease of right 5th finger. Previous cortisone injection, right third finger. She got an excellent response to the trigger finger injection which was beginning to wear off. She has Dupuytren's of the palm, wanted to discuss use of Xiaflex. No fevers, chills, or night sweats. No radiating pain or paresthesias. No ulcers or lesions. No excess sudomotor or vascular activity. No new onset of injury. No bowel or bladder control issues. No lytic or destructive change. subsequent visit Social History Description Last Updated A social drinker 09/06/2022 Last Documented On 1 9:14AM ; [facility] Alcohol use 09/06/2022 Last Documented On 1 9:14AM ; [facility] Currently 09/06/2022 Last Documented On 1 9:14AM ; [facility] Retired 09/06/2022 Last Documented On 1 9:14AM ; [facility] Retired from work 09/06/2022 Last Documented On 1 9:14AM ; [facility] Smoking Status Unknown Medical History Includes: Medical History addressed during this encounter Description Last Updated History of hypertension 09/06/2022 Last Documented On 1 9:14AM ; [facility] Family History Includes: Family History addressed during this encounter Description Last Updated Maternal history of essential hypertensi on 09/06/2022 Last Documented On 1 9:14AM ; [facility] Review of Systems Includes: Review of Systems from this encounter All other systems reviewed and negative except as noted in the HPI and/or ROS Functional Status Includes: Functional Status from this encounter No Functional Status Recorded Physical Exam Includes: Physical Exam from this encounter Allergies Includes: Active Allergies Substance Type Reaction Onset Date Resolved Date Statu s Latex Gloves Allergy Skin Rashes / Er uption of skin, Hives / Urticaria 12/04/2019 Active Last Documented On 2 7:12AM ; [facility] Encounters Encounter Provider Location Date Check-In Time Check-Out Time Diagnosis Ortho Follow Up Visit Cayetano Mckeon MD [facility] 11/21/19 21 9:15AM 9:51AM Trigger Finger of Right Middle Finger,Dupuytre n's Contracture Right,Limb Pain Right Hand Insurance Includes: Active Insurance Policies Plan Name Member ID Group # Subscriber Relationship Effect gibson Dates 1 - Medicare Part B [id number] Nury A Armando Self 2 - BCBS Blue Medicare Supplement [id number] Nury A Armando Self Clinical Notes Includes: Clinical Notes from this encounter No Clinical Notes Recorded
--- OUTSIDE RECORDS SUMMARY | 2024-05-14 11:11 | XMS_ITS | Encounter Summary ---
Author Organization [facility] Address [address] [place] [address] Care Team Providers Care Coremaker Helper Name Role Phone Shaun Valero MD Primary Care Provider Unav ailable Reason for Visit * Reason Onset Date Comments Labs Only 12/15/2009 wonders if resul ts are back yet Encounter Details Date Type Department Care Team (Late st Contact Info) Description 12/15/2009 Telephone [facility] Family Medicine - [address] [id number] Shaun Valero MD Labs Only (wonders if results are back yet) Social History Tobacco Use Types Packs/Day Years Used Date Smoking Tobacco: Never Assessed Sex and Gender Information Value Date Recorded Sex Assigned at Not on file Gender Identity Not on file Sexual Orientation Not on file documented as of this encounter Miscellaneous Notes * Telephone Encounter - Kelsy Byrnes - 12/15/2009 1545 EDT Spoke with ---told to have lab in [place] fax us her results * Telephone Encounter - Maryann Lopez - 12/15/2009 1305 EDT Had cholesterol drawn over wk ago (in [place]); wonders what the results are and if she should take medication documented in this encounter Plan of Treatment Not on file documented as of this encounter Visit Diagnoses Not on filedocumented in this encounter Care Teams Coremaker Helper Relationship Specialty Start Date End Date Shaun Valero MD PCP - General 08/16/09 06/07/15 documented as of this encounter
--- OUTSIDE RECORDS SUMMARY | 2024-05-14 11:11 | XMS_ITS | Encounter Summary ---
Author Organization [facility] Address [address] [place] [address] Care Team Providers Care Farm Truck Driver Name Role Phone Shaun Valero MD Primary Care Provider Unav ailable Reason for Visit * Reason Onset Date Comments Medications Refill 05/25/2013 Encounter Details Date Type Department Care Team (Late st Contact Info) Description 05/25/[address] [address] Shaun Valero MD Medications Refill Social History [...] Tab by mouth daily. 90 Tab 3 05/25/2013 07/01/2013 metoprolol (LOPRESSOR) 25 mg tabletIndications:Hyperten sive disorder Take 1 Tab by mouth daily. 30 Tab 11 05/25/2013 05/25/2013 documented in this encounter Miscellaneous Notes * Telephone Encounter - Jim Pederson PA-C - 05/25/2013 5123 EDT Re-ordered toprol xl. I sent the Rx to the pharmacy. Please inform the patient. * Telephone Encounter - Kelsy Byrnes - 05/25/2013 1422 EDT [facility] as we have different med listed (listed as historical)--pt was rx'd torpol xl [address] Jessica Ny in [place] In 04/2012--are you willing to rx ? * Telephone Encounter - Ritu Bloom - 05/25/2013 1413 EDT Medication(s) Requested: [facility]: [facility] Last Refill Date: 05/25/13 Last Visit Date: 04/07/13 Next Visit Date: Visit date not found Is patient out of medication? unknown Ritu Bloom 05/25/2013 14:13 documented in this encounter Plan of Treatment Not on file documented as of this encounter Visit Diagnoses Diagnosis Hypertensive disorder- Primary Unspecified essential hypertension documented in this encounter Discontinued Medications Medication Sig Discontinue Reason Start Date End Da te metoprolol (LOPRESSOR) 25 mg tablet Take 25 mg by mouth daily. Reorder 05/25/2013 metoprolol (LOPRESSOR) 25 mg tabletIndications:Hyperte nsive disorder Take 1 Tab by mouth daily. 05/25/2013 05/25/2013 documented as of this encounter Care Teams Farm Truck Driver Relationship Specialty Start Date End Date Shaun Valero MD PCP - General 08/16/09 06/07/15 documented as of this encounter
--- OUTSIDE RECORDS SUMMARY | 2024-05-14 11:11 | XMS_ITS | Encounter Summary ---
Author Organization [facility] Address [address] [place] [address] Care Team Providers Care Repairer Helper Name Role Phone Shaun Valero MD Primary Care Provider Unav ailable Encounter Details Date Type Department Care Team (Late st Contact Info) Description 07/04/2010 Abstract Used for ABSTRACTING Data [phone] Shaun Valero MD Social History Tobacco Use [...] Diagnoses Not on filedocumented in this encounter Historical Medications * This list may reflect changes made after this encounter. Medication Sig Dispensed Refills Start Date End Date IBUPROFEN (ADVIL ORAL) Take by mouth. simvastatin (ZOCOR) 20 mg tablet Take 20 mg by mouth at bedtime. 07/04/2010 added in this encounter Care Teams Repairer Helper Relationship Specialty Start Date End Date Shaun Valero MD PCP - General 08/16/09 06/07/15 documented as of this encounter
--- OUTSIDE RECORDS SUMMARY | 2024-05-14 11:11 | XMS_ITS | Clinical Summary ---
Author Organization [facility] Address [address] [place] [phone] Phone Care Team Providers Care Furnace Caretaker Name Role Phone Nafisa RIDER, Shayne Unavailable [phone] Omar GARCIA MD, Tay Kay Unavailable [phone] Sofya Jones Unavailable [phone] Brenda RIDER, Stoney PANTOJA Primary Care Provider [phone] Reason for Visit and Chief Complaint The Chief Complaint is: FU - Rt Hand Problems Includes: Problems addressed during this encounter and other active Problems Current Visit Onset Date Resolved Date Provider Conditio n Status Dupuytren's Contracture Right 10/17/2020 Misael CAMACHO Active Last Documented On 10/17/2020 7:36AM ; [facility] Note: Unchanged Limb Pain Right Hand 10/17/2020 Misael CAMACHO Active Last Documented On 10/17/2020 7:36AM ; [facility] Note: Unchanged Trigger Finger of Right Middle Finger 10/17/2020 Misael CAMACHO Active Last Documented On 10/17/2020 7:36AM ; [facility] Note: Unchanged Past Visits Onset Date Resolved Date Provider Condition Status Hemoccult Positive Stool 09/06/2022 Shayne Skelton MD Active Last Documented On 2 10:10AM ; [facility] Personal History of Colonic Polyps (use This One) 09/06/2022 Shayne Skelton MD Active Last Documented On 2 10:11AM ; [facility] Ganglion Right Wrist 12/04/2019 Sofya LEY Active Last Documented On 0 12:34PM ; [facility] Plan of Treatment Right hand Dupuytren's disease into the 5th digit cord and contracture good candidate for the Xiaflex injection however the patient would like to order the injection when she returns from out of town. Right 3rd trigger finger options discussed and the patient would like to proceed today with an injection. Under sterile precautions the right 3rd flexor sheath was injected with 1 unit of Celestone and lidocaine which the patient tolerated well. - Last Documented On 01/23/2021 8:00AM ; [facility] Pending Tests Order Diagnosis Results Due Ordering P rovider Ortho- Mckeon - Follow Up Follow up: 6 months Palmar fascial fibromatosis [Dupuytren] 01/23/21 Misael CAMACHO Last Documented On 1 11:32AM ; [facility] Assessments Includes: Assessments from this encounter Findings - Right Dupuytren's contracture - Last Documented On 01/23/2021 8:00AM ; [facility] - Trigger finger of the right middle finger - Last Documented On 01/23/2021 8:00AM ; [facility] - Pain in right hand - Last Documented On 01/23/2021 8:00AM ; [facility] Medical Equipment - Implanted Devices Includes: Current Devices No Medical Equipment Recorded Medications Includes: Medications discussed during this encounter and other current Medications Current Medications (continue as prescribed) Aspirin 81 Oral Tablet Chewable 12/04/2019 Provider: Diagnosis: Last Documented On 0 9:03AM By Brigitte Hutson ; [facility] Tetrahydrozoline HCl 0.05% Ophthalmic Solution 020 Provider: Diagnosis: Last Documented On 0 9:03AM By Brigitte Gutierrez [facility] EQL Lutein 20MG Oral Capsule 12/04/2019 Provider: Diagnosis: Last Documented On 0 9:03AM By Brigitte Gutierrez [facility] Doxycycline Monohydrate 50MG Oral Capsule 12/04/2019 Provider: Diagnosis: Last Documented On 0 9:04AM By Brigitte Hutson ; [facility] [place] 3 1200MG Oral Capsule 12/04/2019 Provider: Diagnosis: Last Documented On 0 9:04AM By Brigitte Hutson ; [facility] Toprol XL 25MG Oral Tablet Extended Release 24 Hour Provider: Diagnosis: Last Documented On 0 9:04AM By Brigitte Hutson ; [facility] Zocor 40MG Oral Tablet 12/04/2019 Provider: Diagnosis: Last Documented On 0 9:04AM By Brigitte Hutson ; [facility] Past Medications on file GaviLyte-G 236 GM Oral Solut ion Reconstituted 09/06/2022 - 10/06/2022 Provider: Shayne Skelton MD Diagnosis: use as directed Last Documented On 2 10:33AM By Miguel Braden ; [facility] Medications Administered Includes: Administered Medications from this encounter No Administered Medications Recorded Vital Signs Includes: Vital Signs from this encounter Vital Name 01/16/2021 09:16A Temp-Oral (F) 97.4 Height (in) 64 Weight (lb) 139 Body Mass Index (kg/m2) 23.9 Body Surface Area (m2) 1.7 Pain Level 0 Last Documented On: 01/16/2021 9:17AM ; [facility] Results Includes: Results discussed during this encounter No Results Recorded For Specified Dates History of Present Illness Includes: History of Present Illness from this encounter LALO Roberts is a 70 year old female. - Allergy list reviewed - Medication reconciliation performed Subsequent. The patient is a 70-year-old female presenting to clinic following up right hand Dupuytren's disease with contracture as well as reporting pain to the 3rd digit locking clicking typical of a trigger finger. Currently 0/10 but up to a 3/10 intermittent sharp pain worse with gripping grabbing relieved by immobilization and avoidance. The patient is going out of town, would like to discuss Xiaflex injection however she would like to order the injection when she returns. Social History Description Last Updated A social drinker 09/06/2022 Last Documented On 1 9:12AM ; [facility] Alcohol use 09/06/2022 Last Documented On 1 9:12AM ; [facility] Currently 09/06/2022 Last Documented On 1 9:12AM ; [facility] Retired 09/06/2022 Last Documented On 1 9:12AM ; [facility] Retired from work 09/06/2022 Last Documented On 1 9:12AM ; [facility] No tobacco use 01/16/2021 Last Documented On 1 8:00AM ; [facility] Smoking Status Unknown Medical History Includes: Medical History addressed during this encounter Description Last Updated History of hypertension 09/06/2022 Last Documented On 1 9:12AM ; [facility] Family History Includes: Family History addressed during this encounter Description Last Updated Maternal history of essential hypertensi on 09/06/2022 Last Documented On 1 9:12AM ; [facility] Family history reviewed from old records and is unchanged since last visit. 01/16/2021 Last Documented On 1 9:12AM ; [facility] Review of Systems Includes: Review of Systems from this encounter All other systems reviewed and negative except as noted in the HPI and/or ROS. All other systems reviewed and negative except [...] Active Last Documented On 2 7:12AM ; [facility] Encounters Encounter Provider Location Date Check-In Time Check-Out Time Diagnosis Ortho Follow Up Visit Misael CAMACHO [facility] 01/17/20 21 9:00AM 9:34AM Trigger Finger of Right Middle Finger,Dupuytre n's Contracture Right,Limb Pain Right Hand Insurance Includes: Active Insurance Policies Plan Name Member ID Group # Subscriber Relationship Effect gibson Dates 1 - Medicare Part B [id number] Nury Roberts Self 2 - BCBS Blue Medicare Supplement [id number] 000 Nury Caraballo Clinical Notes Includes: Clinical Notes from this encounter No Clinical Notes Recorded
--- OUTSIDE RECORDS SUMMARY | 2024-05-14 11:11 | XMS_ITS | Encounter Summary ---
Author Organization [facility] Address [address] [place] [address] Care Team Providers Care Roofer Applicator Name Role Phone Shaun Valero MD Primary Care Provider Unav ailable Encounter Details Date Type Department Care Team (Late st Contact Info) Description 06/30/2012 Results Only [facility] Laboratory Services - [facility] ([facility]) [address] [place], [place] [id number] Stuart Duke MD [address] [place] [address] Social History Tobacco Use Types Packs/Day Years [...] Diagnosis Comments PAP TEST- RESULT ONLY Routine 06/30/2012 documented in this encounter Results * PAP TEST- RESULT ONLY (06/30/2012) Pathology Report, External: -- Name: NURY KAMARA Cecy ?: [birth year] ?Age/Sex: 62/F ?Unit#: [id number] ? Loc: LAB.OPX ? Status: REG REF ?? Reg Date: 06/30/12 ? Pt.Phone Number: ? -- Specimen: [id number] ?STATUS: SOUT ?Spec Date:06/30/12 ? Physician Copies: ?Stuart Duke J Tissues: ? Cervical/Endo Pap ? CPT: 12525 ?? Units: ??1 -- ? CYTOLOGY DIAGNOSIS SPECIMEN ADEQUACY: ?Satisfactory for evaluation. Transformation zone component present. GENERAL CATEGORIZATION: ?Negative for Intraepithelial Lesion or Malignancy DESCRIPTIVE DIAGNOSIS: ? Negative for Intraepithelial Lesion or Malignancy. RECOMMENDATIONS/CO MMENTS: ?None. -- ORDER QUERIES: LMP: ? - POST ADRIA ? Post ?PREVIOUS ATYPICAL: N BCP/HRT? ?? Rad Rx? ?? IUD?IF ASCUS DO HPV? N ?? PAP PLUS HPV? N Signed Rachel Shelby CT(ASCP) 07/03/12 1103 ?? -- [facility] 06/30/2012 07/01/2012 11: 35 EDT Stuart Duke MD PATHOLOGY ORDERABL ES [facility] documented in this encounter Visit Diagnoses Not on filedocumented in this encounter Care Teams Roofer Applicator Relationship Specialty Start Date End Date Shaun Valero MD PCP - General 08/16/09 06/07/15 documented as of this encounter
--- OUTSIDE RECORDS SUMMARY | 2024-05-14 11:11 | XMS_ITS | Encounter Summary ---
Author Organization [facility] Address [address] [place] [address] Care Team Providers Care Business Continuity Coordinator Name Role Phone Shaun Valero MD Primary Care Provider Unav ailable Reason for Visit * Reason Onset Date Comments Advice Only 11/22/2010 Encounter Details Date Type Department Care Team (Late st Contact Info) Description 11/22/[address] [address] Shaun Valero MD Advice Only Social History Tobacco Use Types Packs/Day [...] Telephone Encounter - Antonina Orosco LPN - 11/22/2010 1616 EST Spoke with pt about her labs. * Telephone Encounter - Akilah Harris - 11/22/2010 1313 EST Patient called and is asking the nurse to call her back. She has some questions regarding the bloodwork she had done in [place] which I mailed to her when she called and requested it. documented in this encounter Plan of Treatment Not on file documented as of this encounter Visit Diagnoses Not on filedocumented in this encounter Care Teams Business Continuity Coordinator Relationship Specialty Start Date End Date Shaun Valero MD PCP - General 08/16/09 06/07/15 documented as of this encounter
--- OUTSIDE RECORDS SUMMARY | 2024-05-14 11:11 | XMS_ITS | Encounter Summary ---
Author Organization [facility] Address [address] [place] [address] Care Team Providers Care Thread Puller Name Role Phone Unavailable Primary Care Provider Unavailabl e Encounter Details Date Type Department Care Team (Late st Contact Info) Description 08/27/2007 Before PRISM Converted Visit (Maple) [facility] - Maple conversion [address] [place] [address] Shaun Valero MD Social History Tobacco Use Types Packs/Day Years Used Date Smoking Tobacco: Never Assessed Sex and Gender Information Value Date Recorded Sex Assigned at Not on file Gender Identity Not on file Sexual Orientation Not on file documented as of this encounter Progress Notes * Shaun Valreo MD - 08/07/20091948 EST [facility] PROGRESS/FOLLOWUP NOTE - 08/27/2007 PROBLEM Upper respiratory infection. SUBJECTIVE Mrs. Roberts is here to evaluate progressive headache, chills, fever, and mild sinus congestion that have progressed over the past 24 hours. She does not believe she ran a fever last night after feeling cold and clammy. She denies facial pain, earache, sore throat, cough, or upset stomach. She is scheduled for endoscopies to evaluate her abdominal pain. OBJECTIVE Temperature is 100.2. Weight is 135. Blood pressure is 142/70 and pulse is 80 and regular. Tympanicmembranes are clear. Sinuses are nontender. Nasal passages are patent with clear mucus. Throat is clear. Neck is supple with no adenopathy. Lungs are clear with good breath sounds. Heart sounds are regular. Abdomen is soft. ASSESSMENT Viral upper respiratory infection. PLAN 1. Patient education regarding nature of viral infection. 2. Symptomatic treatment with ibuprofen or Tylenol, nasal saline, heat applications. 3. She will report if fever is not resolved in 48 hours. 4. Work excuse for two to three days. She had no questions about this treatment plan. Signed by Shaun Valero MD 08/29/2007 14:20 Shaun Valero MD P Job ID [id number] A/[facility] Doc ID [id number] cc: documented in this encounter Plan of Treatment Not on file documented as of this encounter Visit Diagnoses Not on filedocumented in this encounter
--- OUTSIDE RECORDS SUMMARY | 2024-05-14 11:11 | XMS_ITS | Encounter Summary ---
Author Organization [facility] Address [address] [place] [address] Care Team Providers Care Software Tools Build Engineer Name Role Phone Shaun Valero MD Primary Care Provider Unav ailable Reason for Visit * Reason Onset Date Comments Labs Only 12/19/2009 Encounter Details Date Type Department Care Team (Late st Contact Info) Description 12/19/[address] [address] Shaun Valero MD Labs Only Social History Tobacco Use Types Packs/Day Years Used Date Smoking Tobacco: Never Assessed Sex and Gender Information Value Date Recorded Sex Assigned at Not on file Gender Identity Not on file Sexual Orientation Not on file documented as of this encounter Miscellaneous Notes * Telephone Encounter - Antonina Orosco LPN - 01/09/[address] knapp her lab results are in the scanned folder. * Telephone Encounter - Carissa Verde - 01/09/2010 0938 EDT Pt is calling again today, she called a while ago looking for lab results She is asking for a message to be left if she does not answer [phone] * Telephone Encounter - Carissa Verde - 12/21/2009 1314 EDT Pt called here today saying someone had called her but no message left [phone] * Telephone Encounter - Erin Munoz - 12/19/2009 1605 EDT Patient had her lab results faxed to us. Please review them and let her know if she needs to take any medication. documented in this encounter Plan of Treatment Not on file documented as of this encounter Visit Diagnoses Not on filedocumented in this encounter Care Teams Software Tools Build Engineer Relationship Specialty Start Date End Date Shaun Valero MD PCP - General 08/16/09 06/07/15 documented as of this encounter
--- OUTSIDE RECORDS SUMMARY | 2024-05-14 11:11 | XMS_ITS | Encounter Summary ---
Author Organization [facility] Address [address] [place] [address] Care Team Providers Care Environmental Planning Engineer Name Role Phone Shaun Valero MD Primary Care Provider Unav ailable Reason for Visit * Reason Onset Date Comments Other 08/16/2010 Encounter Details Date Type Department Care Team (Late st Contact Info) Description 08/16/[address] [address] Shaun Valero MD Other Social History Tobacco [...] Telephone Encounter - Antonina Orosco LPN - 08/17/2010 1612 EST APPT MADE TO DISCUS CHOLESTEROL. * Telephone Encounter - Shaun Valero MD - 08/16/2010 1747 EST She should probably schedule an OV. * Telephone Encounter - Antonina Orosco LPN - 08/16/2010 1526 EST Looks like the letter you sent said to just monitor,do you want her to take a med for her cholesterol. * Telephone Encounter - Carissa Verde - 08/16/2010 1415 EST ? Blood work, she rec'd results. ? Hdl, ldl Re the letter she rec'd about numbers, abnormal ? Rx she was given year ago that she is no longer taking now Does she need an rx? Please let her know either way [phone] documented in this encounter Plan of Treatment Not on file documented as of this encounter Visit Diagnoses Not on filedocumented in this encounter Care Teams Environmental Planning Engineer Relationship Specialty Start Date End Date Shaun Valero MD PCP - General 08/16/09 06/07/15 documented as of this encounter
--- OUTSIDE RECORDS SUMMARY | 2024-05-14 11:11 | XMS_ITS | Encounter Summary ---
Author Organization [facility] Address [address] [place] [address] Care Team Providers Care Rail Transportation Tabeler Name Role Phone Unavailable Primary Care Provider Unavailabl e Encounter Details Date Type Department Care Team (Late st Contact Info) Description 05/28/2008 Before PRISM Converted Visit (Maple) [facility] - Maple conversion [address] [place] [address] Shaun Valero MD Social History Tobacco Use Types Packs/Day Years Used Date Smoking Tobacco: Never Assessed Sex and Gender Information Value Date Recorded Sex Assigned at Not on file Gender Identity Not on file Sexual Orientation Not on file documented as of this encounter Progress Notes * Shaun Valero MD - 04/23/2009 0417 EDT [facility] PROGRESS/FOLLOWUP NOTE - 05/28/2008 PROBLEM: Left hand paresthesias. CLAIR Arrington is here to recheck left arm after evaluation in the emergency room yesterday for left hand and forearm numbness/paresthesias. This has bothered her off and on for a few months and was quite severe yesterday after working at a computer. She though symptoms were aggravated by neck motion. Shealso enjoys riding motorcycle and bicycle and sometimes she has more hand paresthesias after both of these. She was reassured there was no evidence of cardiac or neurologic disorder. She was advised tostart a MedrolDosepak to treat cervical disk disease, but she was reluctant to start this. She feels better today,though has had some intermittent paresthesias hand, which she describes involving thumb and first two fingers and radiating to midforearm. OBJECTIVE Blood pressure 112/64. Pulse 80. Neck supple, no JVD. Normal range of motion shoulder, elbow and wrist. There is no wrist tenderness. Sensation and strength intact. DTR is 2+ Bs, Ts and BN BR. She does have a positive Phalen test left wrist. ASSESSMENT 1. Probable mild carpal tunnel left wrist. 2. ? cervical nerve impingement. PLAN 1. Reassurance no evidence of significant vascular or neurologic disorder. 2. She did not really feel she needed to do anything for major intervention. 3. I suggested she obtain wrist splint if symptoms get worse. 4. Use ibuprofen. 5. Watch for provoking activities. 6. She will report if this becomes more bothersome. 7. I will have her come in for a fasting lipid profile. Signed by Shaun Valero MD 06/04/2008 15:17 Shaun Valero MD P Job ID [id number] P/JG Doc ID [id number] cc: Shaun Valero MD P Job ID P/jg Doc ID [id number] cc: documented in this encounter Plan of Treatment Not on file documented as of this encounter Visit Diagnoses Not on filedocumented in this encounter
--- OUTSIDE RECORDS SUMMARY | 2024-05-14 11:11 | XMS_ITS | Encounter Summary ---
Author Organization [facility] Address [address] [place] [address] Care Team Providers Care Park Guard Name Role Phone Shaun Valero MD Primary Care Provider Unav ailable Reason for Visit * Reason Onset Date Comments Labs Only 06/15/2010 Encounter Details Date Type Department Care Team (Late st Contact Info) Description 06/15/[address] [address] Shaun Valero MD Labs Only Social History Tobacco Use Types Packs/Day Years Used Date Smoking Tobacco: Never Assessed Sex and Gender Information Value Date Recorded Sex Assigned at Not on file Gender Identity Not on file Sexual Orientation Not on file documented as of this encounter Miscellaneous Notes * Telephone Encounter - Erin Munoz - 06/15/2010 0955 EDT LABS documented in this encounter Plan of Treatment Not on file documented as of this encounter Procedures Procedure Name Priority Date/Time Associated Diagnosis Comments LIPID PROFILE (INCLUDES CHOLESTEROL, TRIGLYCERIDES, HDL, LDL) Routine 06/07/2010 documented in this encounter Results * LIPID PROFILE (INCLUDES CHOLESTEROL, TRIGLYCERIDES, HDL, LDL) (06/07/2010) Cholesterol, External 261 [facility] Triglycerides, External 83 [facility] HDL, External [address] [facility] LDL, External [address] [facility] Chol/HDL Ratio, External [facility] Fasting? [facility] Blood specimen (specimen) 06/07/2010 Historical Provider CHEMISTRY & BLOOD GAS ORDERABLES [facility] documented in this encounter Visit Diagnoses Not on filedocumented in this encounter Care Teams Park Guard Relationship Specialty Start Date End Date Shaun Valero MD PCP - General 08/16/09 06/07/15 documented as of this encounter
--- OUTSIDE RECORDS SUMMARY | 2024-05-14 11:11 | XMS_ITS | Encounter Summary ---
Author Organization [facility] Address [address] [place] [address] Care Team Providers Care Pole Setter Name Role Phone Shaun Valero MD Primary Care Provider Velma Rey MD Primary Care Provid er Rusty Malik MD Primary Care Provider [phone] Unknown, Provider Primary Care Provider [phone] Encounter Details Date Type Department Care Team (Late st Contact Info) Description 02/07/2012 Historical Results Only [facility] - Main [address] [address] Jaun Patton MD Social History Tobacco Use [...] Date/Time Associated Diagnosis Comments SURGICAL PATHOLOGY Routine 02/07/2012 documented in this encounter Results * SURGICAL PATHOLOGY (02/07/2012) 02/07/2012 02/07/2012 10: 24 EDT Narrative [facility] - 02/08/2012 10:56 EDT ----- ------- Name: NURY KAMARA ?: 46 ?Age/Sex: 69/F ?Unit#: [id number] ? Loc: END ? Status: DEP CLI ?? Reg Date: 02/07/12 ? Pt.Phone Number: ? ----- ------- Specimen: [id number] ? STATUS: SOUT ?Spec Date:02/07/12 ? Physician Copies: ?Jaun Patton MD ?? Tissues: A ?? Gastrointestinal Tract (CECUM) ? Shaun Valero MD ? B ?? Gastrointestinal Tract (RECTOSIGMOID COLON) ? CPT: 12273 ?? Units: ??2 ?FINAL DIAGNOSIS ? A. Cecum, polyp, biopsy; ? - ??Tubular adenoma. ? B. Rectosigmoid colon, polyp, biopsy; ? - ??Hyperplastic polyp. ? GROSS DESCRIPTION ? A. Received in Bouin's and labeled cecum polyp is a mucosal tissue fragment ? 0.1 cm in greatest dimensions, e.s. ? B. Received in Bouin's and labeled rectosigmoid polyp is a tissue fragment ? 0.2 cm in greatest dimensions, e.s. BT ?? PREOP DX/CLINICAL HISTORY ?History of polyps, family history of colon cancer. Signed ____(signature on file)____ Sloan Moyer M.D. 02/08/12 ?? By the signature above, the attending physician certifies that he/she has personally conducted a gross and/or microscopic examination of the described specimens and rendered or confirmed the above diagnosis. Test Performed by [facility], [address] [place] [address] Tree Care Foreman: Justyna Altamirano MD PHD ----- ------- Jaun Patton MD PATHOLOGY ORDERABLES [facility] documented in this encounter Visit Diagnoses Not on filedocumented in this encounter Care Teams Pole Setter Relationship Specialty Start Date End Date Shaun Valero MD PCP - General 08/16/09 06/07/15 Velma Mae MD PCP - General 06/08/15 12/04/16 Rusty Malik MD PCP - General 12/05/16 08/28/18 Unknown, Provider, PCP - General 08/29/18 07/03/22 documented as of this encounter
--- OUTSIDE RECORDS SUMMARY | 2024-05-14 11:11 | XMS_ITS | Encounter Summary ---
Author Organization [facility] Address [address] [place] [address] Care Team Providers Care Bone Density Technician Name Role Phone hSaun Valero MD Primary Care Provider Unav ailable Reason for Referral * (Routine) - Closed Specialty Diagnoses / Procedures Referred By Mo pardo Referred To Contact Diagnoses Hyperlipidemia Procedures BASIC METABOLIC PANEL Shaun Valero MD [address] [facility] [address] [address] Referral ID Status Reason Start Date Expiration Date Visits Re quested Visits Authorized [id number] Closed 07/27/2011 1 1 * (Routine) - Closed Specialty Diagnoses / Procedures Referred By Mo pardo Referred To Contact Diagnoses Hyperlipidemia Procedures LIPID PROFILE (INCLUDES CHOLESTEROL, TRIGLYCERIDES, HDL, LDL) Shaun Valero MD [address] [facility] [address] [place] [address] Referral ID Status Reason Start Date Expiration Date Visits Re quested Visits Authorized [id number] Closed 07/27/2011 1 1 * (Routine) - Closed Specialty Diagnoses / Procedures Referred By Mo pardo Referred To Contact Diagnoses Hyperlipidemia Procedures ALT Shaun Valero MD [address] [facility] [address] [place] [address] Referral ID Status Reason Start Date Expiration Date Visits Re quested Visits Authorized [id number] Closed 07/27/2011 1 1 Reason for Visit * Reason Comments Follow-up med refill,just had pe with head refrigerating engineer. Encounter Details Date Type Department Care Team (Latest Contact Info) Description 07/27/2011 8:15 EDT Office Visit [address] [address] Shaun Valero MD Hyperlipidemia (Primary Dx); Health maintenance examination Social History Tobacco Use Types Packs/Day Years [...] Sign Reading Time Taken Comments Blood Pressure 130/70 07/27/2011817 EDT Pulse 62 07/27/2011 08 EDT Temperature - - Respiratory Rate - - Oxygen Saturation - - Inhaled Oxygen Concentration - - Weight - - Height - - Body Mass Index - - documented in this encounter Ordered Prescriptions Prescription Sig Dispensed Refills Start Date End Da te simvastatin (ZOCOR) 20 mg tabletIndications:Hyperlip idemia Take 1 Tab by mouth every evening. 90 Tab 4 07/27/2011 11/26/2011 documented in this encounter Progress Notes * Shaun Valero MD - 07/27/2011 0956 EDT PROBLEM: Hyperlipidemia. SUBJECTIVE: Mrs Roberts is 61 years old, here today for followup of hyperlipidemia. 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 She had a great summer. She enjoyed a motorcycle trip with her out [place]. She is quite physically active. She and her will travel to [place] again in 2 weeks. She requests to have lab tests and refill of Zocor which she has tolerated well. She is recovering from cataract surgery and being treated with Acular and prednisone eyedrops. She denies headache, lightheadedness, chest pain, palpitation, shortness of breath or abdominal discomfort. OBJECTIVE: BP 130/70, pulse 52. Neck: Supple, no JVD, carotid arteries 2+, no bruit. Lungs: Clear. Heart sounds normal. ASSESSMENT: Hyperlipidemia. PLAN: She was sent for fasting blood test. She was also given pneumococcal vaccine, and we discussed shingles vaccine. She will be due for a tetanus booster in 2 years. She is due for repeat colonoscopy from 09/2007 with repeat recommended because of multiple polyps, but she wants to postpone this until the spring. Keep up regular physical activity. I will see her again in 1 year. documented in this encounter Plan of Treatment Scheduled Orders Name Type Priority Associated Diagnoses Orde r Schedule ALT Lab Routine Hyperlipidemia Ordered: 07/27/2011 LIPID PROFILE (INCLUDES CHOLESTEROL, TRIGLYCERIDES, HDL, LDL) Lab Routine Hyperlipidemia Ordered: 07/27/2011 BASIC METABOLIC PANEL Lab Routine Hyperlipidemia Ordered: 07/27/2011 documented as of this encounter Visit Diagnoses Diagnosis Hyperlipidemia- Primary Other and unspecified hyperlipidemia Health maintenance examination Routine general medical examination at a health care facility documented in this encounter Discontinued Medications Medication Sig Discontinue Reason Start Date End Da te Multivitamins with Minerals Tab Take 1 Tab by mouth daily. Error 07/27/2011 simvastatin (ZOCOR) 20 mg tablet Take 1 Tab by mouth every evening. Reorder 08/21/2010 07/27/2011 documented as of this encounter Historical Medications * This list may reflect changes made after this encounter. Medication Sig Dispensed Refills Start Date End Date prednisoLONE (PRED FORTE) 1 % ophthalmic suspension Place 1 Drop into the right eye 2 times daily. 01/30/2012 ketorolac (ACULAR) 0.5 % ophthalmic solution Place 0.25 mg into the right eye 2 times daily. 04/30/2012 added in this encounter Orders Immunization/Injection Count Last Ordered Date First Ordered Date PNEUMOCOCCAL POLYSACCHARIDE VACCINE 23-VALENT =>2YO SQ/IM 1 07/27/2011 documented in this encounter Care Teams Bone Density Technician Relationship Specialty Start Date End Date Shaun Valero MD PCP - General 08/16/09 06/07/15 documented as of this encounter
--- OUTSIDE RECORDS SUMMARY | 2024-05-14 11:11 | XMS_ITS | Encounter Summary ---
Author Organization [facility] Address [address] [place] [address] Care Team Providers Care Environmental Services Manager Name Role Phone Shaun Valero MD Primary Care Provider Unav ailable Reason for Visit * Reason Onset Date Comments Medications Refill 04/07/2010 Encounter Details Date Type Department Care Team (Late st Contact Info) Description 04/07/[address] [address] Shaun Valero MD Medications Refill Social History Tobacco Use Types Packs/Day Years Used Date Smoking Tobacco: Never Assessed Sex and Gender Information Value Date Recorded Sex Assigned at Not on file Gender Identity Not on file Sexual Orientation Not on file documented as of this encounter Miscellaneous Notes * Telephone Encounter - Shayne Cha - 04/07/2010 1012 EDT Patient called. Patient had a medication roughly four years ago. She doesn't remember the name of it. This is to treat a rash on her foot. Patient is hoping to have this sent to [facility]. Please call with questions and/or to let her know if this was sent in. documented in this encounter Plan of Treatment Not on file documented as of this encounter Visit Diagnoses Not on filedocumented in this encounter Care Teams Environmental Services Manager Relationship Specialty Start Date End Date Shuan Valero MD PCP - General 08/16/09 06/07/15 documented as of this encounter
--- OUTSIDE RECORDS SUMMARY | 2024-05-14 11:11 | XMS_ITS ---
Author Organization [facility] Address [address] [place] [id number] Phone Care Team Providers Care Osteopathic Neurologist Name Role Phone Nafisa RIDER, Shayne Unavailable [phone] Omar GARCIA MD, Tay Kay Unavailable [phone] Sofya Jones Unavailable [phone] Brenda RIDER, Stoney PANTOJA Primary Care Provider [phone] Problems Includes: Active, inactive, and resolved Problems All Visits Onset Date Resolved Date Provider Condition S tatus Hemoccult Positive Stool 09/06/2022 Shayne Skelton MD Active Last Documented On 2 10:10AM ; [facility] Personal History of Colonic Polyps (use This One) 09/06/2022 Shayne Skelton MD Active Last Documented On 2 10:11AM ; [facility] Dupuytren's Contracture Right 10/17/2020 Misael CAMACHO Active Last Documented On 1 7:36AM ; [facility] Note: Unchanged Limb Pain Right Hand 10/17/2020 Misael CAMACHO Active Last Documented On 1 7:36AM ; [facility] Note: Unchanged Trigger Finger of Right Middle Finger 10/17/2020 Misael CAMACHO Active Last Documented On 1 7:36AM ; [facility] Note: Unchanged Ganglion Right Wrist 12/04/2019 Sofya LEY Active Last Documented On 0 12:34PM ; [facility] Plan of Treatment Future Tests Order Diagnosis Results Due Ordering Provider GI Studies / - Colonoscopy Colonoscopy - Pedi Scope Other fecal abnormalities 09/13/22 Shayne Skelton MD Last Documented On 2 10:12AM ; [facility] Assessments Includes: Assessments for all patient encounters Findings Encounter Date Hemoccult positive stool Telemedicine New Patien t with Shayne Skelton MD 09/06/2022 Last Documented On 2 10:14AM ; [facility] Personal history of colonic polyps (USE THIS ONE) Telemedicine New Patient with Shayne Skelton MD 09/06/2022 Last Documented On 2 10:14AM ; [facility] Pain in right hand Ortho Follow Up Visit with Skip CAMACHO 01/16/2021 Last Documented On 1 8:00AM ; [facility] Right Dupuytren's contracture Ortho Follow Up Vi sit with Misael CAMACHO 01/16/2021 Last Documented On 1 8:00AM ; [facility] Trigger finger of the right middle finger Ortho Follow Up Visit with Misael CAMACHO 01/16/2021 Last Documented On 1 8:00AM ; [facility] Pain in right hand Ortho Follow Up Visit with Mynor Mckeon MD 11/21/2020 Last Documented On 1 10:54AM ; [facility] Right Dupuytren's contracture Ortho Follow Up Vi sit with Cayetano Mckeon MD 11/21/2020 Last Documented On 1 10:54AM ; [facility] Trigger finger of the right middle finger Ortho Follow Up Visit with Cayetano Mckeon MD 11/21/2020 Last Documented On 1 10:54AM ; [facility] Ganglion of the right wrist Ortho [place] Complaint with Misael CAMACHO 10/10/2020 Last Documented On 1 7:38AM ; [facility] Pain in right hand Ortho New Chief Complaint wit h Misael CAMACHO 10/10/2020 Last Documented On 1 7:38AM ; [facility] Right Dupuytren's contracture Ortho New Chief Complaint with Misael CAMACHO 10/10/2020 Last Documented On 1 7:38AM ; [facility] Trigger finger of the right middle finger Ortho New Chief Complaint with Misael CAMACHO 10/10/2020 Last Documented On 1 7:38AM ; [facility] Ganglion of the right wrist Ortho New Pa tient Visit with Sofya LEY 12/04/2019 Last Documented On 0 12:56PM ; [facility] Medical Equipment - Implanted Devices Includes: Current and historical Devices No Medical Equipment Recorded Medications Includes: Current and historical Medications Current Medications (continue as prescribed) Aspirin 81 Oral Tablet Chewable 12/04/2019 Provider: Diagnosis: Last Documented On 0 9:03AM By Brigitte Hutson ; [facility] Tetrahydrozoline HCl 0.05% Ophthalmic Solution 020 Provider: Diagnosis: Last Documented On 0 9:03AM By Brigitte Hutson ; [facility] EQL Lutein 20MG Oral Capsule 12/04/2019 Provider: Diagnosis: Last Documented On 0 9:03AM By Brigitte Hutson ; [facility] Doxycycline Monohydrate 50MG Oral Capsule 12/04/2019 Provider: Diagnosis: Last Documented On 0 9:04AM By Brigitte Hutson ; [facility] [place] 3 1200MG Oral Capsule 12/04/2019 Provider: Diagnosis: Last Documented On 0 9:04AM By Brigitte Hutson ; [facility] Toprol XL 25MG Oral Tablet Extended Release 24 Hour Provider: Diagnosis: Last Documented On 0 9:04AM By Brigitte Hutson ; [facility] Zocor 40MG Oral Tablet 12/04/2019 Provider: Diagnosis: Last Documented On 0 9:04AM By Brigitte Hutson ; [facility] Past Medications on file GaviLyte-G 236 GM Oral Solut ion Reconstituted 09/06/2022 - 10/06/2022 Provider: Shayne Skelton MD Diagnosis: use as directed Last Documented On 2 10:33AM By Miguel Braden ; [facility] Medications Administered Includes: Administered Medications in patient's chart No Administered Medications Recorded Results Includes: Results from 05/14/2023 through 05/14/2024 No Results Recorded For Specified Dates History of Present Illness History of Present Illness not supported for this document type No History of Present Illness Recorded Social History Description Last Updated A social drinker 09/06/2022 Last Documented On 2 10:14AM ; [facility] Alcohol use 09/06/2022 Last Documented On 2 10:14AM ; [facility] Currently 09/06/2022 Last Documented On 2 10:14AM ; [facility] No tobacco use 09/06/2022 Last Documented On 2 10:14AM ; [facility] Not using drugs 09/06/2022 Last Documented On 2 10:14AM ; [facility] Retired 09/06/2022 Last Documented On 2 10:14AM ; [facility] Retired from work 09/06/2022 Last Documented On 2 10:14AM ; [facility] AUDIT-C questionnaire was one 09/06/2022 Last Documented On 2 10:14AM ; [facility] Smoking Status Unknown Medical History Includes: Medical History in patient's chart Description Last Updated History of systemic hypertension 022 Last Documented On 2 10:14AM ; [facility] Family History Includes: Family History in patient's chart Description Last Updated Maternal history of essential hypertensi on 09/06/2022 Last Documented On 2 10:14AM ; [facility] Review of Systems Review of Systems not supported for this document type No Review of Systems Recorded Functional Status No Functional Status Recorded Physical Exam Physical Exam not supported for this document type No Physical Exam Recorded Allergies Includes: Active, inactive, and resolved Allergies Substance Type Reaction Onset Date Resolved Date Statu s Latex Gloves Allergy Skin Rashes / Er uption of skin, Hives / Urticaria 12/04/2019 Active Last Documented On 2 7:12AM ; [facility] Insurance Includes: Active Insurance Policies Plan Name Member ID Group # Subscriber Relationship Effect gibson Dates 1 - Medicare Part B [id number] Nury A Armando Self 2 - [facility] Blue Medicare Supplement [id number] Nury A Armando Self Clinical Notes Includes: Signed Clinical Notes starting from 12/22/2022 No Clinical Notes Recorded
--- OUTSIDE RECORDS SUMMARY | 2024-05-14 11:11 | XMS_ITS | Encounter Summary ---
Author Organization [facility] Address [address] [place] [address] Care Team Providers Care Senior Project Coordinator Name Role Phone Shaun Valero MD Primary Care Provider Unav ailable Reason for Visit * Reason Comments Fall fallen x 2 recently- back of knee wollen on right side-neck and shoulder discomfort/? tendenitis right arm Mass left lower leg -rx d oent help-fills with blood and bleeds Encounter Details Date Type Department Care Team (Late st Contact Info) Description 04/30/2012 9:45 EDT Office Visit [address] [address] Shaun Valero MD Shoulder tendinitis; HTN (hypertension) Social History Tobacco Use Types Packs/Day Years [...] Sign Reading Time Taken Comments Blood Pressure 120/70 04/30/2012 0942 EDT Pulse 80 04/30/2012 0942 EDT Temperature - - Respiratory Rate - - Oxygen Saturation - - Inhaled Oxygen Concentration - - Weight 64.9 kg (143 lb) 04/30/2012 0942 EDT Height - - Body Mass Index - - documented in this encounter Patient Instructions * Patient Instructions* Shaun Valero MD - 04/30/2012 10:07 EDT Continue stretching shoulder, and apply warm towels. documented in this encounter Progress Notes * Shaun Valero MD - 04/30/2012 4523 EDT PROBLEM: Shoulder and knee pain. SUBJECTIVE: Vane is here to evaluate right shoulder and right knee pain that have persisted for about 2 weeks following 2 falls, initially in her bathtub and then slipping down stairs. She is concerned that these do not seem to be improving. Her shoulder may have been aggravated by playing golf. She cut back activity and made this appointment, but yesterday she was moving her shoulder, felt a snap and there was improvement in her pain. Her shoulder pain had been along the anterior shoulder aggravated by raising her arm and flexing biceps. She also has had some persisting swelling posterior right knee. This also seems to be improving. She has had a good summer. She is quite physically active. She and her have been looking [employer] just a summer property in [place] and would spend monroy in [place]. She also reports that thelesion left moon that I treated with cryotherapy in January did not resolve and actually is getting larger. OBJECTIVE: BP 120/70, pulse 80, weight 143. Right shoulder, full range of motion, no tenderness. Negative Hawkin's. Minimal discomfort biceps tendon with biceps stress. Right knee slight popliteal swelling. No crepitus, good range of motion, ligaments intact. There is now a 1 cm thick verrucous keratosis left moon. I treated this with liquid nitrogen spray for 3 minutes, which she tolerated well. ASSESSMENT: Resolved right shoulder tendon strain, right knee strain with possible small Loja's cyst. PLAN: Continue gentle stretching, heat applications, ibuprofen as needed. Reassurance that these seem to be resolving. Return for medical evaluation in one year. documented in this encounter Plan of Treatment Not on file documented as of this encounter Visit Diagnoses Diagnosis Shoulder tendinitis Disorders of bursae and tendons in shoulder region, unspecified HTN (hypertension) Unspecified essential hypertension documented in this encounter Discontinued Medications Medication Sig Discontinue Reason Start Date End Da te cyclosporin (RESTASIS) 0.05 % ophthalmic emulsion Place 1 Drop into both eyes 2 times daily. Therapy completed 02/22/2012 04/30/2012 ketorolac (ACULAR) 0.5 % ophthalmic solution Place 0.25 mg into the right eye 2 times daily. Therapy completed 04/30/2012 documented as of this encounter Care Teams Senior Project Coordinator Relationship Specialty Start Date End Date Shaun Valero MD PCP - General 08/16/09 06/07/15 documented as of this encounter
--- OUTSIDE RECORDS SUMMARY | 2024-05-14 11:11 | XMS_ITS | Encounter Summary ---
Author Organization [facility] Address [address] [place] [address] Care Team Providers Care Commercial Collections Specialist Name Role Phone Shaun Valero MD Primary Care Provider Unav ailable Reason for Visit * Reason Comments Immunizations Zostavax Encounter Details Date Type Department Care Team (Late st Contact Info) Description 06/05/2012 9:45 EDT Nurse Only [address] [address] Unknown, Provider, Nursing, [facility], RN Need for shingles vaccine (Primary Dx) Social History Tobacco Use Types Packs/Day Years Used Date Smoking Tobacco: Former Alcohol Use Standard Drinks/Week Comments Yes 8.3 (1 standard drink = 0.6 oz p ure alcohol) Sex and Gender Information Value Date Recorded Sex Assigned at Not on file Gender Identity Not on file Sexual Orientation Not on file documented as of this encounter Progress Notes * Dyan Cerna RN - 06/05/2012 1109 EDT Nurse visit for Zostavax immunization. Patient Education Topic: Zostavax Method: Handout and Verbal Taught to: Patient Barriers: None Outcomes: independent Signature:EDUARDO Cerna RN I was supervised by Amber Cooper MD who was present and immediately available in the office suite. Dyan Cerna RN 06/05/2012 11:10 documented in this encounter Plan of Treatment Not on file documented as of this encounter Visit Diagnoses Diagnosis Need for shingles vaccine- Primary Need for prophylactic vaccination and inoculation against other viral diseases documented in this encounter Orders Immunization/Injection Count Last Ordered Date First Ordered Date SHINGLES (HERPES ZOSTER) SQ 1 06/05/2012 documented in this encounter Care Teams Commercial Collections Specialist Relationship Specialty Start Date End Date Shaun Valero MD PCP - General 08/16/09 06/07/15 documented as of this encounter
--- OUTSIDE RECORDS SUMMARY | 2024-05-14 11:11 | XMS_ITS | Encounter Summary ---
Author Organization [facility] Address [address] [place] [address] Care Team Providers Care Jackspooler Name Role Phone Shaun Valero MD Primary Care Provider Unav ailable Reason for Visit * Reason Onset Date Comments Results 02/20/2012 Encounter Details Date Type Department Care Team (Late st Contact Info) Description 02/20/[address] [address] Shaun Valero MD Results Social History Tobacco Use Types Packs/Day Years Used Date Smoking Tobacco: Former Alcohol Use Standard Drinks/Week Comments Not Asked 0 (1 standard drink = 0.6 oz pur e alcohol) Sex and Gender Information Value Date Recorded Sex Assigned at Not on file Gender Identity Not on file Sexual Orientation Not on file documented as of this encounter Miscellaneous Notes * Telephone Encounter - Yandy Billingsley - 02/20/2012 1501 EDT External Colonoscopy results documented in this encounter Plan of Treatment Not on file documented as of this encounter Procedures Procedure Name Priority Date/Time Associated Diagnosis Comments COLONOSCOPY PROCEDURE Routine 02/07/2012 documented in this encounter Results * COLONOSCOPY (02/07/2012) Colonoscopy [facility] Colonoscopy, External ABNORMAL [facility] Comment:POLYP REPEAT 3 YEARS Anatomical Region Laterality Modality Endoscopy 02/07/2012 Historical Provider GI PROCEDURE GRISEL LIGHT documented in this encounter Visit Diagnoses Not on filedocumented in this encounter Care Teams Jackspooler Relationship Specialty Start Date End Date Shaun Valero MD PCP - General 08/16/09 06/07/15 documented as of this encounter
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
--- OUTSIDE RECORDS SUMMARY | 2024-05-14 11:11 | XMS_ITS | Encounter Summary ---
Author Organization [facility] Address [address] [place] [address] Care Team Providers Care Surface Grinder Name Role Phone Shaun Valero MD Primary Care Provider Velma Rey MD Primary Care Provid er Rusty Malik MD Primary Care Provider [phone] Unknown, Provider Primary Care Provider [phone] Encounter Details Date Type Department Care Team (Late st Contact Info) Description 06/30/2012 Historical Results Only [facility] - Main [address] [id number] Stuart Duke MD [address] [place] [phone] Social History Tobacco Use Types Packs/Day Years [...] Date/Time Associated Diagnosis Comments PAP TEST Routine 06/30/2012 documented in this encounter Results * PAP TEST (06/30/2012) 06/30/2012 07/01/2012 11: 35 EDT Narrative [facility] - 07/03/2012 11:03 EDT ----- ------- Name: NURY KAMARA ?: 46 ?Age/Sex: 69/F ?Unit#: [id number] ? Loc: LAB.OPX ? Status: REG REF ?? Reg Date: 06/30/12 ? Pt.Phone Number: ? ----- ------- Specimen: [id number] ?STATUS: SOUT ?Spec Date:06/30/12 ? Physician Copies: ?Stuart Duke Tissues: ? Cervical/Endo Pap ? CPT: 15494 ?? Units: ??1 ----- ------- ? CYTOLOGY DIAGNOSIS SPECIMEN ADEQUACY: ?Satisfactory for evaluation. Transformation zone component present. GENERAL CATEGORIZATION: ?Negative for Intraepithelial Lesion or Malignancy DESCRIPTIVE DIAGNOSIS: ? Negative for Intraepithelial Lesion or Malignancy. RECOMMENDATIONS/COMMENTS: ?None. ----- ------- ORDER QUERIES: LMP: ? - POST ADRIA ? Post ?PREVIOUS ATYPICAL: N BCP/HRT? ?? Rad Rx? ?? IUD?PAP PLUS HPV? N ??REFLEX TO HR-HPV IF ASCUS ?? REFLEX TO HPV 16/18 IF HPV POS/PAP NEG ?? HPV REGARDLESS?RFLX HPV IF LSIL ?? IF ASCUS DO HPV? N Signed Rachel Saavedra CT(ASCP) 07/03/12 By the signature above, the attending physician certifies that he/she has personally conducted a gross and/or microscopic examination of the described specimens and rendered or confirmed the above diagnosis. Test Performed by [facility], [address] [place] [address] Abstract Checker: Justyna Altamirano MD PHD ----- ------- Stuart Duke MD PATHOLOGY ORDERABL ES [facility] documented in this encounter Visit Diagnoses Not on filedocumented in this encounter Care Teams Surface Grinder Relationship Specialty Start Date End Date Shaun Valero MD PCP - General 08/16/09 06/07/15 Velma Mae MD PCP - General 06/08/15 12/04/16 Rusty Malik MD PCP - General 12/05/16 08/28/18 Unknown, MD Hernan PCP - General 08/29/18 07/03/22 documented as of this encounter
--- OUTSIDE RECORDS SUMMARY | 2024-05-14 11:11 | XMS_ITS | Encounter Summary ---
Author Organization [facility] Address [address] [place] [address] Care Team Providers Care Safety And Security Officer Name Role Phone Shaun Valero MD Primary Care Provider Unav ailable Reason for Referral * Consult, Test and Treat (Routine) - Closed Specialty Diagnoses / Procedures [facility] Referred To Contact Diagnoses Shoulder pain Shaun Valero MD [address] [facility] [address] [place] [address] Referral ID Status Reason Start Date Expiration Date V isits Requested Visits Authorized [id number] Closed Specialty Services Required 05/21/2012 1 1 Question Answer Reason for Request: right shoulder strain Comments [facility] Reason for Visit * Reason Onset Date Comments Other 05/12/2012 Arm/shoulder kalia n Encounter Details Date Type Department Care Team (Late st Contact Info) Description 05/12/[address] [place], [place] [id number] Shaun Valero MD Other (Arm/shoulder pain) Social History Tobacco Use Types Packs/Day Years [...] * Telephone Encounter - Erin Munoz - 05/21/2012 1309 EDT Faxed referral to [facility]. * Telephone Encounter - Shaun Valero MD - 05/21/2012 1105 EDT Referral to PT for recurrent pain right shoulder from strain. * Telephone Encounter - Maryann Lopez - 05/12/2012 0944 EDT Pt is requesting pc from Dr. Valero upon his return to discuss treatment options for arm/shoulderpain, which continues (seen two weeks ago) documented in this encounter Plan of Treatment Scheduled Referrals Name Type Priority Associated Diagnoses Orde r Schedule AMB CONSULT PHYSICAL THERAPY Outpatient Referral Routine Shoulder pain Ordered: 05/21/2012 documented as of this encounter Visit Diagnoses Diagnosis Shoulder pain- Primary Pain in joint, shoulder region documented in this encounter Care Teams Safety And Security Officer Relationship Specialty Start Date End Date Shaun Valero MD PCP - General 08/16/09 06/07/15 documented as of this encounter
--- OUTSIDE RECORDS SUMMARY | 2024-05-14 11:11 | XMS_ITS | Encounter Summary ---
Author Organization [facility] Address [address] [place] [address] Care Team Providers Care Escort Car Driver Name Role Phone Shaun Valero MD Primary Care Provider Unav ailable Reason for Visit * Reason Onset Date Comments Labs Only 07/10/2010 Encounter Details Date Type Department Care Team (Late st Contact Info) Description 07/10/2010 Telephone [facility] [address] [facility] [address] [place] [phone] Padma Floyd FNP [address] [facility] [address] [phone] Labs Only Social History Tobacco Use Types [...] encounter Miscellaneous Notes * Telephone Encounter - Padma Folyd NP - 07/10/2010 1017 EDT Called to inform on culture. Not available for discussion. Left message to call. May need further workup. documented in this encounter Plan of Treatment Not on file documented as of this encounter Visit Diagnoses Not on filedocumented in this encounter Care Teams Escort Car Driver Relationship Specialty Start Date End Date Shaun Valero MD PCP - General 08/16/09 06/07/15 documented as of this encounter
--- OUTSIDE RECORDS SUMMARY | 2024-05-14 11:11 | XMS_ITS | Encounter Summary ---
Author Organization [facility] Address [address] [place] [address] Care Team Providers Care Purchasing Contracting Clerk Name Role Phone Shaun Valero MD Primary Care Provider Unav ailable Reason for Visit * Reason Comments Cataract Self-referred - Had cataract Sx, right eye (07/11/11) with Dr. Pedroza, but had post-op problem with extreme dryness / irritation and tearing. Says it felt like it was impacted. Was treated by Dr. Pool in [place] - put on serum gtts following treatment with I-Ease, which she thinks helped a lot to resolve the discomfort. Says eye feels pretty good today, but still a little crusty. Using Theratears 4/4. Also taking Doxycyclene 50mg every other day to thin the mucus in tearfilm. States vision Encounter Details Date Type Department Care Team (Late st Contact Info) Description 02/22/2012 10:30 EDT Office Visit [facility] Ophthalmology - [address] [phone] Stuart Cyr MD [address] [facility], [address] [place] [address] Social History Tobacco Use Types Packs/Day Years [...] Dispensed Refills Start Date End Da te cyclosporin (RESTASIS) 0.05 % ophthalmic emulsion Place 1 Drop into both eyes 2 times daily. 2 Tray 12 02/22/2012 04/30/2012 documented in this encounter Progress Notes * Adalgisa Carlson - 02/22/2012 1429 EDT Copy of visit note given to patient * Stuart Cyr MD - 02/22/2012 1231 EDT Department of Ophthalmology / Cataract/Cornea Office Visit Note Referring physician: Referral Self Local [facility] Mgr: Family Physician (PCP): Shaun Valero MD Other Physician: History of Present Illness: This HPI section must be documented by the physician (or scribe upon the dictation of the physician). It should not be documented independently by the biological lab technician/scribe in the absence of the physician. Patient presents with ??? Eye problem Self-referred - Had cataract Sx, right eye (07/11/11) with Dr. Pedroza, but had post-op problem with extreme dryness / irritation and tearing. Says it felt like it was impacted. Was treated by Dr. Pool in [place] - put on serum gtts following treatment with I-Ease, which she thinks helped a lot to resolve the discomfort. Says eye feels pretty good today, but still a little crusty. Using Theratears 4/4. Also taking Doxycyclene 50mg every other day to thin the mucus in tearfilm. States vision Pain: 0 / 10 Both Eyes Flashes: No Floaters: Yes Controls: Diabetes :No Hypertension:Yes Tobacco:No EXAMINATION: Base Ophthalmology Exam Visual Acuity Right Left Both Dist sc 20/15 -2 20/200 Dist ph sc 20/40 Method: Snellen - Linear Tonometry Right Left Pressure 16 18 Method: Applanation Time: 11:23 Wearing Rx Sphere Cylinder Wright Right Left [place] +0.50 082 Manifest Refraction Sphere Cylinder Wright Dist Add Right Left -2.50 +0.75 090 20/30 + +2.25 Dilation Both eyes: 1.0% Mydriacyl, 2.5% Phenylephrine @ 11:24 Pupils Pupils Dark Light React APD Right PERRL 3 2 Brisk None Left PERRL 3 2 Brisk None Visual Abreu Right Left Result Full Full Method: Counting fingers Extraocular Movement Right Left Result Full Full Main Ophthalmology Exam Slit Lamp Exam Right Left Lids/Lashes Normal Normal Conjunctiva/Sclera White and quiet White and quiet Cornea cornea incision from 9-10:30, no fluorescein uptake no fluorescein uptake Anterior Chamber Deep and quiet Deep and quiet Iris Round and reactive Round and reactive, 8 mm pupil post dilation Lens Posterior chamber intraocular lens, trace Posterior capsular opacification no PXF, 2+ Corticalcataract, 3+ Nuclear sclerosis, 2+ Posterior subcapsular cataract Vitreous Normal Normal Fundus Exam Right Left Disc Normal Normal C/D Ratio 0.2 0.2 Macula Normal Normal Vessels Normal Normal Periphery Normal Normal Neuro/Psych Oriented x3: Yes Mood/Affect: Normal CVF appears normal both eyes per SP OPHTHALMOLOGY TESTING: [To insert test results, first enter the results in Doc Flowsheet and then use dot phrase .OPHTESTEXAM to choose the results module(s) to pull into this note] IMPRESSION / PLAN: Encounter Diagnoses Name Primary? Dry eyes Yes ??? Other and combined forms of senile cataract ??? After-cataract, obscuring vision ??? Pseudophakia Plan: Advise treatment with Restasis bid both eyes, in anticipation of probable cataract surgery left eye in [place] in the fall or winter. She experienced considerable exacerbation of dry eye symptoms after cataract surgery right eye, and treatment with Restasis may help prevent this from happening with left eye cataract surgery. She will continue to use Theratears qid both eyes. She asked if she should continue doxycycline, and I told her that this can be an effective treatment for meibomitis, but has possible side effects and interactions with other medications. She may wish to try stopping doxycycline, and assessing her eye comfort following cessation of doxycycline treatment - she could restart the medication if eye comfort worsens after stopping it. No follow-up appointments have been made, but I'd be happy to see her again at any time. We will give today's note to her for her records. Scribe Attestation: I am scribing for Stuart Cyr MD while he is personally performing the service. Leslie Farris (Scribe) Time spent: documented in this encounter Plan of Treatment Not on file documented as of this encounter Visit Diagnoses Diagnosis Dry eyes- Primary Tear film insufficiency, unspecified Other and combined forms of senile cataract After-cataract, obscuring vision Pseudophakia Lens replaced by other means documented in this encounter Historical Medications * This list may reflect changes made after this encounter. Medication Sig Dispensed Refills Start Date End Date DOCOSAHEXANOIC ACID/EPA (FISH OIL ORAL) Take 1 Cap by mouth daily. Carboxymethylcellulose Sodium (THERA TEARS) 0.25 % Drop Apply 1 Drop to eye 4 times daily. added in this encounter Eye Exam Visual Acuity (Snellen - Linear) Right eye Left eye Dist sc 20/15 -2 20/200 Dist ph sc 20/40 Tonometry (Applanation, 11:23) Right eye Left eye Pressure 16 18 Pupils Pupils Dark Light React APD Right eye PERRL 3 2 Brisk None Left eye PERRL 3 2 Brisk None Visual Abreu (Counting fingers) Right eye Left eye Full Full Extraocular Movement Right eye Left eye Full Full Neuro/Psych Oriented x3: Yes Mood/Affect: Normal Dilation Both eyes: 1.0% Mydriacyl, 2 .5% Phenylephrine @ 11:24 Slit Lamp Exam Right eye Left eye Lids/Lashes Normal Normal Conjunctiva/Sclera White and quiet White and elvin et Cornea cornea incision from 9-10:30, no fluorescein uptake no fluorescein uptake Anterior Chamber Deep and quiet Deep and quiet Iris Round and reactive Round and anthony ctive, 8 mm pupil post dilation Lens Posterior chamber in traocular lens, trace Posterior capsular opacification no PXF, 2+ Cortical cataract, 3+ Nuclear sclerosis, 2+ Posterior subcapsular cataract Vitreous Normal Normal Fundus Exam Right eye Left eye Disc Normal Normal C/D Ratio 0.2 0.2 Macula Normal Normal Vessels Normal Normal Periphery Normal Normal Wearing Rx Sphere Cylinder Wright Right eye Left eye [place] +0.50 082 Manifest Refraction Sphere Cylinder Wright Dist [place] Add Right eye Left eye -2.50 +0.75 090 20/30 + +2.25 Care Teams Purchasing Contracting Clerk Relationship Specialty Start Date End Date Shaun Valero MD PCP - General 08/16/09 06/07/15 documented as of this encounter
--- OUTSIDE RECORDS SUMMARY | 2024-05-14 11:11 | XMS_ITS | Encounter Summary ---
Author Organization [facility] Address [address] [place] [address] Care Team Providers Care Food Processing Chemist Name Role Phone Shaun Valero MD Primary Care Provider Unav ailable Reason for Visit * Reason Onset Date Comments Urinary Tract Infection 07/10/2010 Encounter Details Date Type Department Care Team (Late st Contact Info) Description 07/10/2010 Telephone [facility] [address] [facility] [address] [place] [phone] Padma Floyd FNP [address] [facility] [address] [phone] Urinary Tract Infection Social History Tobacco Use Types Packs/Day Years [...] Miscellaneous Notes * Telephone Encounter - Padma Floyd NP - 07/10/2010 1312 EDT Called back. Is feeling fine. Just had tr. Leuc. So no further work up. * Telephone Encounter - Akilah Harris - 07/10/2010 1045 EDT Patient is calling Padma gonsales per her message. I don't see a telephone encounter for this. documented in this encounter Plan of Treatment Not on file documented as of this encounter Visit Diagnoses Not on filedocumented in this encounter Care Teams Food Processing Chemist Relationship Specialty Start Date End Date Shaun Valero MD PCP - General 08/16/09 06/07/15 documented as of this encounter
--- OUTSIDE RECORDS SUMMARY | 2024-05-14 11:11 | XMS_ITS | Encounter Summary ---
Author Organization [facility] Address [address] [place] [address] Care Team Providers Care Blockers Skiver Name Role Phone Shaun Valero MD Primary Care Provider Unav ailable Reason for Visit * Reason Comments Abnormal Lab cholesterol Encounter Details Date Type Department Care Team (Late st Contact Info) Description 08/21/2010 8:15 [place] [address] Shaun Valero MD Urinary frequency (Primary Dx) Social History Tobacco Use Types [...] Sign Reading Time Taken Comments Blood Pressure 112/72 08/21/2010 0818 EST Pulse 76 08/21/2010 0818 EST Temperature - - Respiratory Rate - - Oxygen Saturation - - Inhaled Oxygen Concentration - - Weight - - Height - - Body Mass Index - - documented in this encounter Patient Instructions * Patient Instructions* Shaun Valero MD - 08/21/2010 8:44 EST Start simvastatin 20 mg daily. Have lipid and liver blood tests done in 2 months. documented in this encounter Ordered Prescriptions Prescription Sig Dispensed Refills Start Date End Da te simvastatin (ZOCOR) 20 mg tablet Take 1 Tab by mouth every evening. 90 Tab 4 08/21/2010 07/27/2011 documented in this encounter Progress Notes * Shaun Valero MD - 08/23/2010 1033 EST [facility] PROGRESS/FOLLOWUP NOTE - 08/21/2010 PROBLEM: Hyperlipidemia. SUBJECTIVE: Mrs. Roberts is here to discuss treatment for hyperlipidemia. She had a recent lipid profile again showing elevated lipids. She did not start on simvastatin that I had recommended one year ago. She finds the idea of regular medication distasteful but she also does not want to be foolish about risk of stroke. Her recent lipid profile showed cholesterol of 261, HDL 60, LDL 184, triglyceride 83. She has no other real risk factors. She has no complaints at this time. She is quite physically active. She will be leaving shortly for [place]. OBJECTIVE: BP 112/72. Pulse 76. Chest clear. Heart sounds normal. ASSESSMENT: Hyperlipidemia. PLAN: Her 10-year CV risk is still only about 2% but I suggested given the low risk of statin medication and persistent cholesterol elevation in spite of maximum dietary and exercise modification that I would recommend a statin therapy. She agreed to a trial of Simvastatin 20 mg daily and will arrange for a followup lipid and liver test in 2 to 3 months, which can be done from [place]. Electronically Signed by Shaun Valero MD 08/23/2010 10:33 Shaun Valero MD - Shaun Valero MD - [facility] Job ID: SM Doc ID: [id number] Ext Doc ID: [id number] cc: * Shaun Valero MD - 08/21/2010 0836 EST This office note has been dictated. documented in this encounter Plan of Treatment Not on file documented as of this encounter Visit Diagnoses Diagnosis Urinary frequency- Primary documented in this encounter Discontinued Medications Medication Sig Discontinue Reason Start Date End Da te sulfamethoxazole-trimetho prim (BACTRIM SS, SEPTRA) 400-80 mg per tabletIndications:Abdomin al pain Take 1 Tab by mouth 2 times daily. Therapy completed 07/04/2010 08/21/2010 documented as of this encounter Historical Medications * This list may reflect changes made after this encounter. Medication Sig Dispensed Refills Start Date End Date aspirin 81 mg EC tablet Take 81 mg by mouth daily. Multivitamins with Minerals Tab Take 1 Tab by mouth daily. 07/27/2011 added in this encounter Care Teams Blockers Skiver Relationship Specialty Start Date End Date Shaun Valero MD PCP - General 08/16/09 06/07/15 documented as of this encounter
--- OUTSIDE RECORDS SUMMARY | 2024-05-14 11:11 | XMS_ITS | Encounter Summary ---
Author Organization [facility] Address [address] [place] [address] Care Team Providers Care It Security Architect Name Role Phone Shaun Valero MD Primary Care Provider Unav ailable Reason for Visit * Reason Onset Date Comments Medications Refill 04/07/2010 Encounter Details Date Type Department Care Team (Late st Contact Info) Description 04/07/[address] [address] Antonina Orosco LPN Medications Refill Social History Tobacco Use Types Packs/Day Years Used Date Smoking Tobacco: Never Assessed Sex and Gender Information Value Date Recorded Sex Assigned at Not on file Gender Identity Not on file Sexual Orientation Not on file documented as of this encounter Ordered Prescriptions Prescription Sig Dispensed Refills Start Date End Da te desoximetasone (TOPICORT) 0.25 % cream Apply 0.25 cm topically. Apply as directed 60 g 11 04/07/2010 07/04/2010 documented in this encounter Plan of Treatment Not on file documented as of this encounter Visit Diagnoses Not on filedocumented in this encounter Care Teams It Security Architect Relationship Specialty Start Date End Date Shaun Valero MD PCP - General 08/16/09 06/07/15 documented as of this encounter
--- OUTSIDE RECORDS SUMMARY | 2024-05-14 11:11 | XMS_ITS ---
Care Plan - [facility] Created on: May 14, 2024 Armando Nury Cecy : 1950 Sex: Female Author Organization [facility] Address [address] [place] [phone] Phone Care Team Providers Care Recreation Center Director Name Role Phone Nafisa RIDER, Shayne Unavailable [phone] Omar GARCIA MD, Tay Kay Unavailable [phone] Sofya Jones Unavailable [phone] Brenda RIDER, Stoney PANTOJA Primary Care Provider [phone]
--- OUTSIDE RECORDS SUMMARY | 2024-05-14 11:11 | XMS_ITS | Encounter Summary ---
Author Organization [facility] Address [address] [place] [address] Care Team Providers Care Slip Dumper Name Role Phone Shaun Valero MD Primary Care Provider Velma Rey MD Primary Care Provid er Rusty Malik MD Primary Care Provider [phone] Unknown, Provider Primary Care Provider [phone] Encounter Details Date Type Department Care Team (Late st Contact Info) Description 05/31/2010 Historical Results Only [facility] - Main [address] [address] Stuart Duke MD [address] [place] [phone] Social History Tobacco Use Types Packs/Day Years [...] Date/Time Associated Diagnosis Comments PAP TEST Routine 05/31/2010 documented in this encounter Results * PAP TEST (05/31/2010) 05/31/2010 05/31/2010 15: 29 EDT Narrative [facility] - 06/02/2010 10:17 EDT ----- ------- Name: NURY KAMARA ?: [birth year] ?Age/Sex: 69/F ?Unit#: [id number] ? Loc: AGO ? Status: REG POV ?? Reg Date: 05/31/10 ? Pt.Phone Number: ? ----- ------- Specimen: [id number] ?STATUS: SOUT ?Spec Date:05/31/10 ? Physician Copies: ?Stuart Duke Tissues: ? Cervical/Endo Pap ?Shaun Valero MD CPT: 12688 ?? Units: ??1 ----- ------- ? CYTOLOGY DIAGNOSIS SPECIMEN ADEQUACY: ??Satisfactory for evaluation. Assessment of transformation zone not applicable (e.g. ??atrophy, vaginal sample, hysterectomy). GENERAL CATEGORIZATION: ?Negative for Intraepithelial Lesion or Malignancy DESCRIPTIVE DIAGNOSIS: ? Negative for Intraepithelial Lesion or Malignancy. RECOMMENDATIONS/COMMENTS: ?None. ----- ------- ORDER QUERIES: LMP: POST MEN- ? N Post ? N ??PREVIOUS ATYPICAL: N BCP/HRT? N Rad Rx? N IUD? N ??PAP PLUS HPV? N ??REFLEX TO HR-HPV IF ASCUS ?? REFLEX TO HPV 16/18 IF HPV POS/PAP NEG ?? HPV REGARDLESS?RFLX HPV IF LSIL ?? IF ASCUS DO HPV? N Signed Rickey Oro CT(ASCP) 06/02/10 ? By the signature above, the attending physician certifies that he/she has personally conducted a gross and/or microscopic examination of the described specimens and rendered or confirmed the above diagnosis. Test Performed by [facility], [address] [place] [address] Strategy Specialist: Justyna Altamirano MD PHD ----- ------- Stuart Duke MD PATHOLOGY ORDERABL ES [facility] documented in this encounter Visit Diagnoses Not on filedocumented in this encounter Care Teams Slip Dumper Relationship Specialty Start Date End Date Shaun Valero MD PCP - General 08/16/09 06/07/15 Velma Mae MD PCP - General 06/08/15 12/04/16 Rusty Malik MD PCP - General 12/05/16 08/28/18 Unknown, MD Hernan PCP - General 08/29/18 07/03/22 documented as of this encounter
--- OUTSIDE RECORDS SUMMARY | 2024-05-14 11:11 | XMS_ITS | Clinical Summary ---
Author Organization [facility] Address [address] [place] [address] Phone Care Team Providers Care Color Shop Helper Name Role Phone Nafisa RIDER, Shayne Unavailable [phone] Omar GARCIA MD, Tay Kay Unavailable [phone] Sofya Jones Unavailable [phone] Brenda RIDER, Stoney PANTOJA Primary Care Provider [phone] Reason for Visit and Chief Complaint Colonoscopy Problems Includes: Problems addressed during this encounter and other active Problems All Visits Onset Date Resolved Date Provider Condition S tatus Hemoccult Positive Stool 09/06/2022 Shayne Skelton MD Active Last Documented On 2 10:10AM ; [facility] Personal History of Colonic Polyps (use This One) 09/06/2022 Shayne Skelton MD Active Last Documented On 2 10:11AM ; [facility] Dupuytren's Contracture Right 10/17/2020 Misael CAMACHO Active Last Documented On 1 7:36AM ; [facility] Note: Unchanged Limb Pain Right Hand 10/17/2020 Misael CAMACHO Active Last Documented On 1 7:36AM ; [facility] Note: Unchanged Trigger Finger of Right Middle Finger 10/17/2020 Misael CAMACHO Active Last Documented On 1 7:36AM ; [facility] Note: Unchanged Ganglion Right Wrist 12/04/2019 Sofya LEY Active Last Documented On 0 12:34PM ; [facility] Plan of Treatment Future Tests Order Diagnosis Results Due Ordering Provider GI Studies / - Colonoscopy Colonoscopy - Pedi Scope Other fecal abnormalities 09/13/22 Shayne Skelton MD Last Documented On 2 10:12AM ; [facility] Assessments Includes: Assessments from this encounter No Assessments Recorded Medical Equipment - Implanted Devices Includes: Current Devices No Medical Equipment Recorded Medications Includes: Medications discussed during this encounter and other current Medications Current Medications (continue as prescribed) Aspirin 81 Oral Tablet Chewable 12/04/2019 Provider: Diagnosis: Last Documented On 0 9:03AM By Brigitte Hutson ; [facility] Tetrahydrozoline HCl 0.05% Ophthalmic Solution 020 Provider: Diagnosis: Last Documented On 0 9:03AM By Brigitte Hutson ; [facility] EQL Lutein 20MG Oral Capsule 12/04/2019 Provider: Diagnosis: Last Documented On 0 9:03AM By Brigitte Hutson ; [facility] Doxycycline Monohydrate 50MG Oral Capsule 12/04/2019 Provider: Diagnosis: Last Documented On 0 9:04AM By Brigitte Hutson ; [facility] [place] 3 1200MG Oral Capsule 12/04/2019 Provider: Diagnosis: Last Documented On 0 9:04AM By Brigitte Hutson ; [facility] Toprol XL 25MG Oral Tablet Extended Release 24 Hour Provider: Diagnosis: Last Documented On 0 9:04AM By Brigitte Hutson ; [facility] Zocor 40MG Oral Tablet 12/04/2019 Provider: Diagnosis: Last Documented On 0 9:04AM By Brigitte Hutson ; [facility] Medications Administered Includes: Administered Medications from this encounter No Administered Medications Recorded Results Includes: Results discussed during this encounter No Results Recorded For Specified Dates History of Present Illness Includes: History of Present Illness from this encounter No History of Present Illness Recorded Social History No Social History Recorded - Smoking Status Unknown Medical History Includes: Medical History addressed during this encounter No Medical History Recorded Family History Includes: Family History addressed during this encounter No Family History Recorded Review of Systems Includes: Review of Systems from this encounter No Review of Systems Recorded Functional Status Includes: Functional Status from this encounter No Functional Status Recorded Physical Exam Includes: Physical Exam from this encounter No Physical Exam Recorded Allergies Includes: Active Allergies Substance Type Reaction Onset Date Resolved Date Statu s Latex Gloves Allergy Skin Rashes / Er uption of skin, Hives / Urticaria 12/04/2019 Active Last Documented On 2 7:12AM ; [facility] Encounters Encounter Provider Location Date Check-In Time Check- Out Time Diagnosis Colonoscopy Shayne Skelton MD [facility] Special Procedures 3 10:11AM 11:59PM Insurance Includes: Active Insurance Policies Plan Name Member ID Group # Subscriber Relationship Effect gibson Dates 1 - Medicare Part B [id number] Nury A Armando Self 2 - BS Blue Medicare Supplement [id number] Nury A Armando Self Clinical Notes Includes: Clinical Notes from this encounter No Clinical Notes Recorded
--- OUTSIDE RECORDS SUMMARY | 2024-05-14 11:11 | XMS_ITS | Encounter Summary ---
Author Organization [facility] Address [address] [place] [address] Care Team Providers Care Assistant Health Educator Name Role Phone Shaun Valero MD Primary Care Provider Velma Rey MD Primary Care Provid er Rusty Malik MD Primary Care Provider [phone] Unknown, Provider Primary Care Provider [phone] Encounter Details Date Type Department Care Team (Late st Contact Info) Description 06/25/2011 Historical Results Only [facility] Lab - Main [address] [id number] Stuart Duke MD [address] [place] [id number] Social History Tobacco Use Types Packs/Day Years [...] Date/Time Associated Diagnosis Comments PAP TEST Routine 06/25/2011 documented in this encounter Results * PAP TEST (06/25/2011) 06/25/2011 06/25/2011 20: 57 EDT Narrative [facility] - 06/28/2011 14:07 EDT ----- ------- Name: NURY KAMARA ?: 46 ?Age/Sex: 69/F ?Unit#: [id number] ? Loc: LAB.OPX ? Status: REG REF ?? Reg Date: 06/25/11 ? Pt.Phone Number: ? ----- ------- Specimen: [id number] ?STATUS: SOUT ?Spec Date:06/25/11 ? Physician Copies: ?Stuart Duke Tissues: ? Cervical/Endo Pap ? CPT: 88118 ?? Units: ??1 ----- ------- ? CYTOLOGY DIAGNOSIS SPECIMEN ADEQUACY: ?Satisfactory for evaluation. Transformation zone component present. GENERAL CATEGORIZATION: ?Negative for Intraepithelial Lesion or Malignancy DESCRIPTIVE DIAGNOSIS: ? Negative for Intraepithelial Lesion or Malignancy. RECOMMENDATIONS/COMMENTS: ?None. ----- ------- ORDER QUERIES: LMP: ? - POSTMENO ? Post ?PREVIOUS ATYPICAL: N BCP/HRT? ?? Rad Rx? ?? IUD?PAP PLUS HPV? N ??REFLEX TO HR-HPV IF ASCUS ?? REFLEX TO HPV 16/18 IF HPV POS/PAP NEG ?? HPV REGARDLESS?RFLX HPV IF LSIL ?? IF ASCUS DO HPV? N Signed Thomas Alegria CT(ASCP) 06/28/11 By the signature above, the attending physician certifies that he/she has personally conducted a gross and/or microscopic examination of the described specimens and rendered or confirmed the above diagnosis. Test Performed by [facility], [address] [place] [address] Coin Teller: Justyna Altamirano MD PHD ----- ------- Stuart Duke MD PATHOLOGY ORDERABL ES [facility] documented in this encounter Visit Diagnoses Not on filedocumented in this encounter Care Teams Assistant Health Educator Relationship Specialty Start Date End Date Shaun Valero MD PCP - General 08/16/09 06/07/15 Velma Mae MD PCP - General 06/08/15 12/04/16 Rusty Malik MD PCP - General 12/05/16 08/28/18 Unknown, MD Hernan PCP - General 08/29/18 07/03/22 documented as of this encounter
--- OUTSIDE RECORDS SUMMARY | 2024-05-14 11:11 | XMS_ITS | Encounter Summary ---
Author Organization [facility] Address [address] [place] [address] Care Team Providers Care Nutritional Yeast Supervisor Name Role Phone Shaun Valero MD Primary Care Provider Unav ailable Encounter Details Date Type Department Care Team (Late st Contact Info) Description 08/19/[address] [address] Shaun Valero MD Social History Tobacco Use [...] on filedocumented in this encounter Care Teams Nutritional Yeast Supervisor Relationship Specialty Start Date End Date Shaun Valero MD PCP - General 08/16/09 06/07/15 documented as of this encounter
--- OUTSIDE RECORDS SUMMARY | 2024-05-14 11:11 | XMS_ITS | Encounter Summary ---
Author Organization [facility] Address [address] [place] [address] Care Team Providers Care Unit Support Representative Name Role Phone Shaun Valero MD Primary Care Provider Unav ailable Encounter Details Date Type Department Care Team (Late st Contact Info) Description 01/31/2012 Results Only [facility] Medicine [address] [phone] Shaun Valero MD Social History Tobacco Use [...] Diagnosis Comments BASIC METABOLIC PANEL ([facility]) Routine 01/31/2012 7:16 EDT ALT Routine 01/31/2012 7:16 EDT LIPID PROFILE (INCLUDES CHOLESTEROL, TRIGLYCERIDES, HDL, LDL) Routine 01/31/2012 7:16 EDT documented in this encounter Results * ALT (01/31/2012 7:16 EDT) ALT, External 25 12 - 78 U/L [facility] 01/31/2012 7:16 EDT 01/31/2012 7:[address] [facility] - 01/31/2012 8:58 EDT Does PT Have a Latex Allergy? YES Medical Necessity NA Shaun Valero MD CHEMISTRY & BLOOD G ORDERABLES Performing Organization Address City/[facility]/ZIP Co de Phone Number [facility] * (ABNORMAL) LIPID PROFILE (INCLUDES CHOLESTEROL, TRIGLYCERIDES, HDL, LDL) (01/31/2012 7:16 EDT) Triglycerides, External 149 35 - 150 mg/dL [facility] Cholesterol, External 209(H) 120 - 200 mg/dL [facility] HDL, External 60 40 - 60 mg/dL [facility] LDL, External 119(H) 60 - 100 mg/dL [facility] 01/31/2012 7:16 EDT 01/31/2012 7:[address] [facility] - 01/31/2012 8:58 EDT Does PT Have a Latex Allergy? YES Medical Necessity NA Shaun Valero MD CHEMISTRY & BLOOD G ORDERABLES Performing Organization Address [facility] Co de Phone Number [facility] * (ABNORMAL) BASIC METABOLIC PANEL ([facility]) (01/31/2012 7:16 EDT) Bun, External 24(H) 7 - 18 mg/dL [facility] Calcium, External 9.6 8.5 - 10.1 mg/dL [facility] Chloride, External 105 98 - 107 mEq/L [facility] CO2, External 29 21 - 32 mEq/L [facility] Creatinine, External 1.0 0.5 - 1.4 mg/dL [facility] GFR, Kahlil/Est., External [address] [facility] Comment: Chronic renal impairment is defined as GFR <60 Multiply result by 1.210 for patients. Glucose, Serum, External 90 70 - 100 mg/dL [facility] Potassium, External 4.1 3.5 - 5.0 mEq/L [facility] Sodium, External 140 135 - 145 mEq/L [facility] 01/31/2012 7:16 EDT 01/31/2012 7:[address] [facility] - 01/31/2012 8:58 EDT Does PT Have a Latex Allergy? YES Medical Necessity NA Shaun Valero MD CHEMISTRY & BLOOD G ORDERABLES [facility] documented in this encounter Visit Diagnoses Not on filedocumented in this encounter Care Teams Unit Support Representative Relationship Specialty Start Date End Date Shaun Valero MD PCP - General 08/16/09 06/07/15 documented as of this encounter
--- OUTSIDE RECORDS SUMMARY | 2024-05-14 11:11 | XMS_ITS | Clinical Summary ---
Author Organization [facility] Address [address] [place] [phone] Phone Care Team Providers Care Strength And Conditioning Coach Name Role Phone Nafisa RIDER, Shayne Unavailable [phone] Omar GARCIA MD, Tay Kay Unavailable [phone] Sofya Jones Unavailable [phone] Brenda RIDER, Stoney PANTOJA Primary Care Provider [phone] Reason for Visit and Chief Complaint The Chief Complaint is: NCC - Rt Hand, Pinky & Middle Trigger Fingers ~3 mos out Problems Includes: Problems addressed during this encounter and other active Problems Current Visit Onset Date Resolved Date Provider Conditio n Status Dupuytren's Contracture Right 10/17/2020 Misael CAMACHO Active Last Documented On 10/17/2020 7:36AM ; [facility] Note: Unchanged Limb Pain Right Hand 10/17/2020 Misael CAMACHO Active Last Documented On 10/17/2020 7:36AM ; [facility] Note: Unchanged Trigger Finger of Right Middle Finger 10/17/2020 Misael CAMACHO Active Last Documented On 10/17/2020 7:36AM ; [facility] Note: Unchanged Ganglion Right Wrist 12/04/2019 Sofya LEY Active Last Documented On 0 12:34PM ; [facility] Past Visits Onset Date Resolved Date Provider Condition Status Hemoccult Positive Stool 09/06/2022 Shayne Skelton MD Active Last Documented On 2 10:10AM ; [facility] Personal History of Colonic Polyps (use This One) 09/06/2022 Shayne Skelton MD Active Last Documented On 2 10:11AM ; [facility] Plan of Treatment Right 3rd digit trigger finger options of treatment discussed the patient elects to proceed with an injection today under sterile precautions the right 3rd digit flexor sheath was injected with 1 unit of Celestone and lidocaine which the patient tolerated well. Follow-up in 6 weeks to evaluate her progress. Dupuytren's nodule and cord into the pinky finger, not too bothersome to the patient. Continue observation. - Last Documented On 10/17/2020 7:38AM ; [facility] Pending Tests Order Diagnosis Results Due Ordering [facility] - Follow Up *Follow up: 6 weeks Pain in right hand 10/17/20 Misael CAMACHO Last Documented On 1 10:56AM ; [facility] - Follow Up *Follow up: 6 weeks Palmar fascial fibromatosis [Dupuytren] 10/17/20 Misael CAMACHO Last Documented On 1 10:56AM ; [facility] Assessments Includes: Assessments from this encounter Findings - Right Dupuytren's contracture - Last Documented On 10/17/2020 7:38AM ; [facility] - Trigger finger of the right middle finger - Last Documented On 10/17/2020 7:38AM ; [facility] - Ganglion of the right wrist - Last Documented On 10/17/2020 7:38AM ; [facility] - Pain in right hand - Last Documented On 10/17/2020 7:38AM ; [facility] Medical Equipment - Implanted Devices Includes: Current Devices No Medical Equipment Recorded Medications Includes: Medications discussed during this encounter and other current Medications Current Medications (continue as prescribed) Aspirin 81 Oral Tablet Chewable 12/04/2019 Provider: Diagnosis: Last Documented On 0 9:03AM By Brigitte Hutson ; [facility] Tetrahydrozoline HCl 0.05% Ophthalmic Solution 020 Provider: Diagnosis: Last Documented On 0 9:03AM By Brigitte Hutson ; [facility] EQL Lutein 20MG Oral Capsule 12/04/2019 Provider: Diagnosis: Last Documented On 0 9:03AM By Brigitte Hutson ; [facility] Doxycycline Monohydrate 50MG Oral Capsule 12/04/2019 Provider: Diagnosis: Last Documented On 0 9:04AM By Brigitte Hutson ; [facility] [place] 3 1200MG Oral Capsule 12/04/2019 Provider: Diagnosis: Last Documented On 0 9:04AM By Brigitte Hutson ; [facility] Toprol XL 25MG Oral Tablet Extended Release 24 Hour Provider: Diagnosis: Last Documented On 0 9:04AM By Brigitte Hutson ; [facility] Zocor 40MG Oral Tablet 12/04/2019 Provider: Diagnosis: Last Documented On 0 9:04AM By Brigitte Hutson ; [facility] Past Medications on file GaviLyte-G 236 GM Oral Solut ion Reconstituted 09/06/2022 - 10/06/2022 Provider: Shayne Skelton MD Diagnosis: use as directed Last Documented On 2 10:33AM By Miguel Braden ; [facility] Medications Administered Includes: Administered Medications from this encounter No Administered Medications Recorded Vital Signs Includes: Vital Signs from this encounter Vital Name 10/10/2020 09:01A Temp-Oral (F) 97.6 Height (in) 64 Weight (lb) 138 Body Mass Index (kg/m2) 23.7 Body Surface Area (m2) 1.7 Pain Level 0 Last Documented On: 10/10/2020 9:04AM ; [facility] Results Includes: Results discussed during this encounter No Results Recorded For Specified Dates History of Present Illness Includes: History of Present Illness from this encounter LALO Roberts is a 70 year old female. - Allergy list reviewed - Medication reconciliation performed Initial visit. 70-year-old female new chief complaint reporting issues of the right hand reporting nodule in the palm as well as locking clicking of the right 3rd digit. Pain currently 0 but up to a 6/10 intermittent sharp pain in the palm worse with activities of daily living relieved by immobilization rest and avoidance. Denies numbness or tingling, radiating pain, fever, chills, night sweats. Social History Description Last Updated A social drinker 09/06/2022 Last Documented On 1 8:58AM ; [facility] Alcohol use 09/06/2022 Last Documented On 1 8:58AM ; [facility] Currently 09/06/2022 Last Documented On 1 8:58AM ; [facility] Retired 09/06/2022 Last Documented On 1 8:58AM ; [facility] Retired from work 09/06/2022 Last Documented On 1 8:58AM ; [facility] No tobacco use 10/10/2020 Last Documented On 1 7:38AM ; [facility] Smoking Status Unknown Medical History Includes: Medical History addressed during this encounter Description Last Updated History of hypertension 09/06/2022 Last Documented On 1 8:58AM ; [facility] Family History Includes: Family History addressed during this encounter Description Last Updated Maternal history of essential hypertensi on 09/06/2022 Last Documented On 1 8:58AM ; [facility] Family history reviewed from old records and is unchanged since last visit. 10/10/2020 Last Documented On 1 8:59AM ; [facility] Review of Systems Includes: Review of Systems [...] Active Last Documented On 2 7:12AM ; [facility] Encounters Encounter Provider Location Date Check-In Time Check-Out Time Diagnosis Ortho New Chief Complaint Misael CAMACHO [facility] 10/10/19 21 9:15AM 9:30AM Ganglion Right Wrist,Limb Pain Right Hand,Dupuytren' s Contracture Right,Trigger Finger of Right Middle Finger Insurance Includes: Active Insurance Policies Plan Name Member ID Group # Subscriber Relationship Effect gibson Dates 1 - Medicare Part B [id number] Nury Caraballo 2 - [facility] Blue Medicare Supplement [id number] 000 Nury Caraballo Clinical Notes Includes: Clinical Notes from this encounter No Clinical Notes Recorded
--- OUTSIDE RECORDS SUMMARY | 2024-05-14 11:11 | XMS_ITS | Encounter Summary ---
Author Organization [facility] Address [address] [place] [address] Care Team Providers Care Speech Pathologist Name Role Phone Unavailable Primary Care Provider Unavailabl e Encounter Details Date Type Department Care Team (Late st Contact Info) Description 05/22/2007 Before PRISM Converted Visit ([facility]) [facility] conversion [address] [place] [address] Shaun Valero MD Social History Tobacco Use Types Packs/Day Years Used Date Smoking Tobacco: Never Assessed Sex and Gender Information Value Date Recorded Sex Assigned at Not on file Gender Identity Not on file Sexual Orientation Not on file documented as of this encounter Progress Notes * Shaun Valero MD - 12/06/2009 1703 EST [facility] PROGRESS/FOLLOWUP NOTE - 05/22/2007 PROBLEM Abdominal discomfort. SUB Ms. Roberts is here to discuss a persisting problem with right-sided abdominal pain and irregular bowel habits. For the past six to nine months, she has been experiencing more frequent discomfort inright side abdomen as well as frequent episodes of loose stool that are usually stress related, occasionally associated with heartburn. She recalls undergoing over 10 years ago and she was treated for a gastric ulcer 20 years ago. She would like to have this evaluated further since she has become more uncomfortable. There does not seem to be any relation to meals or activity, though she is aware of more discomfort during times of stress. Her recent problem with back pain has improved. CURRENT MEDICATIONS She is not taking any regular medications. She does not use antacids. OBJECTIVE Blood pressure is 126/60 and pulse is 80 and regular. Neck is supple. Chest is clear. Heart sounds are normal. Abdomen has active bowel sounds and is soft with slightly tender right side abdomen at the waistline. There is no palpable mass, guarding, rebound, and no right upper quadrant or subcostaltenderness. No organomegaly. She had a blood chemistry profile in March 2007 that included normal BUN, creatinine, SGPT, and CBC. ASSESSMENT 1. Probable irritable colon. Overdue for colon screening. 2. History of gastric ulcer. PLAN 1. I suggested she try taking bxrd-cej-wovmmha antacid such as Prilosec or Pepcid. 2. [facility]erral to [facility]. 3. She is due for colonoscopy and may benefit from upper endoscopy at the same time. 4. Continue high-fiber, low-fat diet. 5. She will need to have repeat cholesterol test in four to five months. 6. I will see her again in five months. Signed by Shaun Valero MD 05/28/2007 09:55 Suzan Bowden MD Shaun Valero MD P Job ID [id number] A/[facility] Doc ID [id number] cc: [facility] documented in this encounter Plan of Treatment Not on file documented as of this encounter Visit Diagnoses Not on filedocumented in this encounter
--- OUTSIDE RECORDS SUMMARY | 2024-05-14 11:11 | XMS_ITS | Encounter Summary ---
Author Organization [facility] Address [address] [place] [address] Care Team Providers Care Hydraulic Jack Operator Name Role Phone Shaun Valero MD Primary Care Provider Unav ailable Reason for Referral * Consult (Routine) - Closed Specialty Diagnoses / Procedures Referred By Mo pardo Referred To Contact Diagnoses Healthcare maintenance Shaun Valero MD [address] [place] [address] [address] Phone: [phone] Referral ID Status Reason Start Date Expiration Date V isits Requested Visits Authorized [id number] Closed Specialty Services Required 12/10/2011 1 1 Question Answer Reason for Request: screening colonoscopy Comments [facility] Reason for Visit * Reason Onset Date Comments Colonoscopy 12/10/2011 time for repeat Encounter Details Date Type Department Care Team (Late st Contact Info) Description 12/10/2011 Telephone [facility] Family Medicine [facility] [address], [place] [address] Shaun Valero MD Colonoscopy (time for repeat) Social History Tobacco Use Types Packs/Day Years Used Date Smoking Tobacco: Former Alcohol Use Standard Drinks/Week Comments Not Asked 0 (1 standard drink = 0.6 oz pur e alcohol) Sex and Gender Information Value Date Recorded Sex Assigned at Not on file Gender Identity Not on file Sexual Orientation Not on file documented as of this encounter Miscellaneous Notes * Telephone Encounter - Maryann Lopez - 12/10/2011 1418 EDT Pt will be back from [place] in mid-December; calling to get her colonoscopy ordered so she can have done when she gets back documented in this encounter Plan of Treatment Scheduled Referrals Name Type Priority Associated Diagnoses Order Schedule AMB CONSULT GASTROENTEROLOGY Outpatient Referral Routine Healthcare maintenance Ordered: 12/10/2011 documented as of this encounter Visit Diagnoses Diagnosis Healthcare maintenance- Primary Routine general medical examination at a health care facility documented in this encounter Care Teams Hydraulic Jack Operator Relationship Specialty Start Date End Date Shaun Valero MD PCP - General 08/16/09 06/07/15 documented as of this encounter
--- OUTSIDE RECORDS SUMMARY | 2024-05-14 11:11 | XMS_ITS | Encounter Summary ---
Author Organization [facility] Address [address] [place] [address] Care Team Providers Care Rn Social Work Name Role Phone Shaun Valero MD Primary Care Provider Unav ailable Reason for Visit * Reason Comments Skin Lesion leg lesion lt moon,h as been there for 4 months. Encounter Details Date Type Department Care Team (Late st Contact Info) Description 02/22/2012 8:30 EDT Office Visit [address] [place] [id number] Shaun Valero MD Solar keratosis (Primary Dx) Social History Tobacco Use Types [...] Sign Reading Time Taken Comments Blood Pressure 120/60 02/22/2012 0833 EDT Pulse 78 02/22/2012 0833 EDT Temperature - - Respiratory Rate - - Oxygen Saturation - - Inhaled Oxygen Concentration - - Weight - - Height - - Body Mass Index - - documented in this encounter Progress Notes * Shaun Valero MD - 02/22/2012 1113 EDT PROBLEM: Lesion left moon. SUBJECTIVE: Nury is here to evaluate a lesion that has persisted on left moon for about the past 3 months. She is not sure how this started, but she became concerned when she noted bleeding after rubbing on her clothing a few days ago. She has had actinic keratosis frozen on her right moon in thepast. Otherwise, she feels well. OBJECTIVE: BP 120/60, pulse 78. Left moon, directly overlying a prominent vein, there is a 5 mm solar keratosis that does have a verrucous appearance. PROCEDURE: After verbal consent, I treated keratotic lesion, left moon with liquid nitrogen, which she tolerated well. ASSESSMENT: Probable solar keratosis, ? verruca. PLAN: Observe effective cryotreatment, which may be repeated if necessary. documented in this encounter Plan of Treatment Not on file documented as of this encounter Visit Diagnoses Diagnosis Solar keratosis- Primary Actinic keratosis documented in this encounter Care Teams Rn Social Work Relationship Specialty Start Date End Date Shaun Valero MD PCP - General 08/16/09 06/07/15 documented as of this encounter
--- OUTSIDE RECORDS SUMMARY | 2024-05-14 11:11 | XMS_ITS | Encounter Summary ---
Author Organization [facility] Address [address] [place] [address] Care Team Providers Care Records Assistant Name Role Phone Unavailable Primary Care Provider Unavailabl e Encounter Details Date Type Department Care Team (Late st Contact Info) Description 04/24/2007 Before PRISM Converted Visit ([facility]) [facility] - [facility] conversion [address] [place] [address] Shaun Valero MD Social History Tobacco Use Types Packs/Day Years Used Date Smoking Tobacco: Never Assessed Sex and Gender Information Value Date Recorded Sex Assigned at Not on file Gender Identity Not on file Sexual Orientation Not on file documented as of this encounter Progress Notes * Shaun Valero MD - 08/09/2009 1152 EST [facility] PROGRESS/FOLLOWUP NOTE - 04/24/2007 PROBLEM Upper back pain. CLAIR Arrington is here to discuss recurring discomfort upper back between shoulder blades, see note from March 01, 2006. She did respond well to physical therapy. Has kept upa fairly active lifestyle. 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 Occasionally aggravated by her motorcycle riding. She also experiences occasional episodes of diarrhea that tend to be stress related, associated with abdominal painand some heartburn. She does not feel depressed. She generally sleeps wellexcept when thinking about situations at work. She is looking forward to retiring from the [place] in another year or so. She wonders about further imagine of her neck and back and is interested in a bone density test. 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 Duke. She has not had blood testing done for some time. Her back pain is mostly localized to discomfort along side right scapula near the spine radiating somewhat to the shoulder, but no radiation down arm. There is no paresthesia, weakness or sensory loss in her arms. She does not take any regular medications and is reluctant to start on anything. She does not use alcohol or excess caffeine. She is quite physical active. She tries to keep up regular stretching exercises. We had discussed treatment with Moshe a couple of years ago, but she was uneasy starting this. She occasionally experiences palpitation, but no lightheadedness, chest pain, or shortness of breath, cough. She does have regular mammography and Pap test. I do not believe she has had a colonoscopy. did receive tetanus booster in 2002. OBJECTIVE Blood pressure 110/68. Pulse 80. Eyes: Full EOM, KISHAN. Neck supple, good range of motion, nontender. Lungs are clear. Heart sounds normal. Abdomen soft, nontender. There is a tender spot palpating medial to right scapula approximately T2 level, but she has full range of motion of shoulder. DTR is 2+ Bs, Ts. Strength and sensation intact both arms. ASSESSMENT 1. Upper thoracic muscle strain. 2. Stress reaction with irritable bowel. PLAN 1. Over half of this 30-minute visit was spent in [id number]-[id number] counseling. 2. She will have a fasting blood test done for screening evaluation. 3. She will continue regular stretching of neck, back and shoulders. 4. I recommended heat applications. 5. She did not want to resume physical therapy at this time, but will call back when she wants a referral. 6. I did prescribe methocarbamol 500 mg one to two q.i.d. and discussed what to expect with this treatment for muscle tension. 7. We will schedule a bone density test. 8. I will see here for followup as needed. She understood and had no further questions about this treatment plan. Signed by Shaun Valero MD 04/30/2007 16:18 Suzan Bowden MD Shaun Valero MD P Job ID [id number] T: 11:48 A/jg Doc ID [id number] cc: Shaun Valero MD P Job ID [id number] Cecy/shani Doc ID [id number] cc: documented in this encounter Plan of Treatment Not on file documented as of this encounter Visit Diagnoses Not on filedocumented in this encounter
--- OUTSIDE RECORDS SUMMARY | 2024-05-14 11:11 | XMS_ITS | Encounter Summary ---
Author Organization [facility] Address [address] [place] [address] Care Team Providers Care Morning Show Producer Name Role Phone Shaun Valero MD Primary Care Provider Unav ailable Reason for Referral * (Routine) - Closed Specialty Diagnoses / Procedures Referred By Contac t Referred To Contact Diagnoses Conjunctivitis Procedures C-REACTIVE PROTEIN Shaun Valero MD [address] [facility] [address] [place] [address] Referral ID Status Reason Start Date Expiration Date Visits Re quested Visits Authorized [id number] Closed 01/30/2012 1 1 * (Routine) - Closed Specialty Diagnoses / Procedures Referred By Contac t Referred To Contact Diagnoses Hyperlipidemia Procedures HEMAGRAM AND DIFFERENTIAL Shaun Valero MD [address] [facility] [address] [place] [address] Referral ID Status Reason Start Date Expiration Date Visits Re quested Visits Authorized [id number] Closed 01/30/2012 1 1 * (Routine) - Closed Specialty Diagnoses / Procedures Referred By Contac t Referred To Contact Diagnoses HTN (hypertension) Procedures BASIC METABOLIC PANEL Shaun Valero MD [address] [facility] [address] [place] [address] Referral ID Status Reason Start Date Expiration Date Visits Re quested Visits Authorized [id number] Closed 01/30/2012 1 1 * (Routine) - Closed Specialty Diagnoses / Procedures Referred By Contac t Referred To Contact Diagnoses Hyperlipidemia Procedures LIPID PROFILE (INCLUDES CHOLESTEROL, TRIGLYCERIDES, HDL, LDL) Shaun Valero MD [address] [facility] [address] [place] [address] Referral ID Status Reason Start Date Expiration Date Visits Re quested Visits Authorized [id number] Closed 01/30/2012 1 1 * (Routine) - Closed Specialty Diagnoses / Procedures Referred By Contac t Referred To Contact Diagnoses Hyperlipidemia Procedures ALT Shaun Valero MD [address] [facility] [address] [place] [address] Referral ID Status Reason Start Date Expiration Date Visits Re quested Visits Authorized [id number] Closed 01/30/2012 1 1 Reason for Visit * Reason Comments Follow-up back from [place] several things to discus. Encounter Details Date Type Department Care Team (Latest Contact Info) Description 01/30/2012 14:15 EDT Office Visit [facility] [address] [facility] [address] [place] [address] Shaun Valero MD Hyperlipidemia (Primary Dx); HTN (hypertension); Conjunctivitis Social History Tobacco Use Types Packs/Day Years [...] Reading Time Taken Comments Blood Pressure 120/70 01/30/2012 1419 EDT Pulse 68 01/30/2012 1419 EDT Temperature - - Respiratory Rate - - Oxygen Saturation - - Inhaled Oxygen Concentration - - Weight - - Height - - Body Mass Index - - documented in this encounter Patient Instructions * Patient Instructions* Shaun Valero MD - 01/30/2012 14:43 EDT Have a fasting blood test done. documented in this encounter Ordered Prescriptions Prescription Sig Dispensed Refills Start Date End Da te simvastatin (ZOCOR) 40 mg tablet Take 1 Tab by mouth every evening. 90 Tab 0 01/30/2012 06/25/2013 documented in this encounter Progress Notes * Shaun Valero MD - 01/30/2012 2403 EDT PROBLEM: Hypertension, hyperlipidemia. SUBJECTIVE: Nury is here for followup of hypertension and hyperlipidemia. She returned to [place] weeks ago from [place] where she had a pleasant winter. She is still a bit disturbed about difficulty she had with right eye following cataract surgery, which was done last fall by Dr Pedroza. Following her surgery, she developed bothersome tearing of her right eye. She was not able to see Dr Pedroza before traveling to [place] and she continued to have difficulty and had a hard time getting into a physician in [place], but she was finally evaluated and treated with TheraTears eye drops and started on doxycycline 50 mg every other day for inflammation. She had gotten rather upset about allthis. She was found to have elevated blood pressure and was started on metoprolol 25 mg while she was there. She tolerates this well. She had blood tests done, including an elevated cholesterol, and had simvastatin increased to 40 mg. Her eye is better but still seems to have a little irritation. She is scheduled to see an title i director in [place] next week. She denies chest pain, palpitation, lightheadedness, shortness of breath. She had no other acute illness all winter. She had been treated with Acular and prednisone eyedrops following her cataract surgery. MEDICATIONS: Simvastatin 40 mg daily. Metoprolol XL 25 mg daily. Aspirin 81 mg daily. ALLERGIES: She has allergy to LATEX. OBJECTIVE: BP 120/70, pulse 68. She became tearful when talking about her eye treatment. Eyes full EOMs, sclerae clear. PERRLA, no inflammation. No exudate. Sinuses nontender. Throat clear. Neck supple, no JVD. No adenopathy. Lungs clear. Heart sounds normal. Extremities: No edema. ASSESSMENT: Hypertension, hyperlipidemia, apparent dry eye. PLAN: She will have fasting blood testing done. Continue current medications. She monitors his blood pressure, which did go a little high when she skipped metoprolol for a few days. I will be interested in the report from Dr Cyr. She was interested in testing for internal infection so I will include a CBC and CRP on blood test. I will see her for followup in the fall. documented in this encounter Plan of Treatment Scheduled Orders Name Type Priority Associated Diagnoses Orde r Schedule ALT Lab Routine Hyperlipidemia Ordered: 01/30/2012 LIPID PROFILE (INCLUDES CHOLESTEROL, TRIGLYCERIDES, HDL, LDL) Lab Routine Hyperlipidemia Ordered: 01/30/2012 BASIC METABOLIC PANEL Lab Routine HTN (hypertension) Ordered: 01/30/2012 HEMAGRAM AND DIFFERENTIAL Lab Routine Hyperlipidemia Ordered: 01/30/2012 C-REACTIVE PROTEIN Lab Routine Conjunctivitis Ordered: 01/30/2012 documented as of this encounter Visit Diagnoses Diagnosis Hyperlipidemia- Primary Other and unspecified hyperlipidemia HTN (hypertension) Unspecified essential hypertension Conjunctivitis Conjunctivitis, unspecified documented in this encounter Discontinued Medications Medication Sig Discontinue Reason Start Date End Da te prednisoLONE (PRED FORTE) 1 % ophthalmic suspension Place 1 Drop into the right eye 2 times daily. Error 01/30/2012 simvastatin (ZOCOR) 20 mg tabletIndications:Hyperli pidemia Take 1 Tab by mouth every evening. Dose adjustment 11/26/2011 01/30/2012 documented as of this encounter Historical Medications * This list may reflect changes made after this encounter. Medication Sig Dispensed Refills Start Date End Date DOXYCYCLINE MONOHYDRATE ORAL Take 50 mg by mouth every 48 hours. 4 gtts both eyes 4xs a day 03/20/2022 metoprolol (LOPRESSOR) 25 mg tablet Take 25 mg by mouth daily. 05/25/2013 added in this encounter Care Teams Morning Show Producer Relationship Specialty Start Date End Date Shaun Valero MD PCP - General 08/16/09 06/07/15 documented as of this encounter
--- OUTSIDE RECORDS SUMMARY | 2024-05-14 11:11 | XMS_ITS | Clinical Summary ---
Author Organization [facility] Address [address] [place] [id number] Phone Care Team Providers Care Beef Splitter Name Role Phone Nafisa RIDER, Shayne Unavailable [phone] Omar GARCIA MD, Tay Kay Unavailable [phone] Sofya Jones Unavailable [phone] Brenda RIDER, Stoney PANTOJA Primary Care Provider [phone] Reason for Visit and Chief Complaint Telemedicine New Patient Problems Includes: Problems addressed during this encounter and other active Problems Current Visit Onset Date Resolved Date Provider Conditio n Status Hemoccult Positive Stool 09/06/2022 Shayne Skelton MD Active Last Documented On 2 10:10AM ; [facility] Personal History of Colonic Polyps (use This One) 09/06/2022 Shayne Skelton MD Active Last Documented On 2 10:11AM ; [facility] Past Visits Onset Date Resolved Date Provider Condition Status Dupuytren's Contracture Right 10/17/2020 Misael CAMACHO Active Last Documented On 10/17/2020 7:36AM ; [facility] Note: Unchanged Limb Pain Right Hand 10/17/2020 Misael CAMACHO Active Last Documented On 10/17/2020 7:36AM ; [facility] Note: Unchanged Trigger Finger of Right Middle Finger 10/17/2020 Misael CAMACHO Active Last Documented On 10/17/2020 7:36AM ; [facility] Note: Unchanged Ganglion Right Wrist 12/04/2019 Sofya LEY Active Last Documented On 0 12:34PM ; [facility] Plan of Treatment I will proceed with colonoscopy in a timely fashion. I will use a pediatric colonoscope. Risks of bleeding infection perforation were all discussed in detailTodays visit was conducted via video call/face time. The in person office visit was changed to telemedicine because of current pandemic. Patient was at home, I was in office. Thirty minutes was spent on office visit. Patient understands the risks and understands they will be responsible for applicable cost sharing. . - Last Documented On 09/06/2022 10:14AM ; [facility] Future Tests Order Diagnosis Results Due Ordering Provider GI Studies / - Colonoscopy Colonoscopy - Pedi Scope Other fecal abnormalities 09/13/22 Shayne Skelton MD Last Documented On 10:12AM ; [facility] Assessments Includes: Assessments from this encounter Findings Shayne Skelton MD made the following assessments - Last Documented On 09/06/2022 10:14AM ; [facility] 1. Personal history of colonic polyps (USE THIS ONE) - Last Documented On 09/06/2022 10:14AM ; [facility] 2. Hemoccult positive stool - Last Documented On 09/06/2022 10:14AM ; [facility] Is difficult to interpret a positive Cologuard test in the face of a patient with a history of colon polyps is there is no data regarding such subset. Regardless given her history of polyps 5 years since last colonoscopy in a positive Cologuard test colonoscopy is clearly indicated. - Last Documented On 09/06/2022 10:14AM ; [facility] Medical Equipment - Implanted Devices Includes: Current Devices No Medical Equipment Recorded Medications Includes: Medications discussed during this encounter and other current Medications New / Renewed during this visit Shayne Skelton MD on 09/06/2022 GaviLyte-G 236 GM Oral Solut ion Reconstituted Provider: Shayne Skelton MD 30 day supply: 1 mL, 0 refills Diagnosis: use as directed Pharmacy: [facility] [facility] [address] - [address] [address] [place] [address] , [facility], [id number] - Last Documented On 10:33AM By Miguel Braden ; [facility] Current Medications (continue as prescribed) Aspirin 81 Oral Tablet Chewable 12/04/2019 Provider: Diagnosis: Last Documented On 0 9:03AM By Brigitte Hutson ; [facility] Tetrahydrozoline HCl 0.05% Ophthalmic Solution 020 Provider: Diagnosis: Last Documented On 0 9:03AM By Brigitte Hutson ; [facility] EQL Lutein 20MG Oral Capsule 12/04/2019 Provider: Diagnosis: Last Documented On 0 9:03AM By Brigitte Hutson ; [facility] Doxycycline Monohydrate 50MG Oral Capsule 12/04/2019 Provider: Diagnosis: Last Documented On 0 9:04AM By Brigitte Hutson ; [facility] [place] 3 1200MG Oral Capsule 12/04/2019 Provider: Diagnosis: Last Documented On 0 9:04AM By Brigitte Hutson ; [facility] Toprol XL 25MG Oral Tablet Extended Release 24 Hour Provider: Diagnosis: Last Documented On 0 9:04AM By Brigitte Hutson ; [facility] Zocor 40MG Oral Tablet 12/04/2019 Provider: Diagnosis: Last Documented On 0 9:04AM By Brigitte Hutson ; [facility] Medications Administered Includes: Administered Medications from this encounter No Administered Medications Recorded Results Includes: Results discussed during this encounter No Results Recorded For Specified Dates History of Present Illness Includes: History of Present Illness from this encounter LALO Roberts is a 72 year old female. She reported: Allergy list reviewed and medication list reviewed. Patient is a pleasant 72-year-old female. She regionally hails from [place]. She has a history of colon polyps 5 years ago. For unclear reason she had a colo guard test performed even with a history of polyps. Nonetheless the Cologuard was positive. The patient now comes in for evaluation of the same. She denies constipation diarrhea. She has no upper GI complaints. She has no known history of anemia. Social History Description Last Updated A social drinker 09/06/2022 Last Documented On 2 10:14AM ; [facility] Alcohol use 09/06/2022 Last Documented On 2 10:14AM ; [facility] Currently 09/06/2022 Last Documented On 2 10:14AM ; [facility] No tobacco use 09/06/2022 Last Documented On 2 10:14AM ; [facility] Not using drugs 09/06/2022 Last Documented On 2 10:14AM ; [facility] Retired 09/06/2022 Last Documented On 2 10:14AM ; [facility] Retired from work 09/06/2022 Last Documented On 2 10:14AM ; [facility] AUDIT-C questionnaire was one 09/06/2022 Last Documented On 2 10:14AM ; [facility] Smoking Status Unknown Procedures and Surgical History Includes: Procedures from this encounter Procedures Code Diagnosis Performing Provider Service L ocation Service Date No Hospital Treatment Received Last Documented On 2 7:12AM ; [facility] Medical History Includes: Medical History addressed during this encounter Description Last Updated History of systemic hypertension 022 Last Documented On 2 10:14AM ; [facility] Family History Includes: Family History addressed during this encounter Description Last Updated Maternal history of essential hypertensi on 09/06/2022 Last Documented On 2 10:14AM ; [facility] Review of Systems Includes: Review of Systems from this encounter CONSTITUTIONAL: Denies weakness, fatigue, change in weight, appetite, sleeping habits, chills, fever, night sweats, heat or cold intolerance. EYES: No change in vision, double vision, loss of vision, pain or tearing. ENMT: Denies bleeding, masses pain or change, hoarseness, or loss of hearing. CARDIOVASCULAR: Denies chest pain, chest pressure, palpitations, rapid or irregular heartbeat. RESPIRATORY: Denies shortness of breath, dyspnea on exertion, paroxysmal nocturnal dyspnea or unusual or persistent cough. GENITOURINARY: Denies dysuria, hematuria, weak or diminished urinary stream, incontinence, genital lesions, unusual bleeding or discharge. MUSCULOSKELETAL: Denies unusual joint pain, muscle pain, swelling, heat, redness, stiffness, tenderness, weakness, immobility or loss of function. INTEGUMENTARY: Denies rash, hair or nail changes, masses or skin lesions. NEUROLOGICAL: Denies headache, dizziness, localized weakness, paresthesias, loss of sensation or function. PSYCHIATRIC: Denies feelings of anxiety, depression or mood swings, insomnia, nightmares, or memory loss. ENDOCRINE: Denies unusual weight loss or gain, polyuria, polydipsia, change in voice, hair loss or gain. HEMATOLOGIC/LYMPHATIC: Denies unusual bleeding, easy bruisability, or skin lumps. ALLERGIC/IMMUNOLOGIC: Denies hives or unusual reaction to any medications, food, animals or insects. Functional Status Includes: Functional Status from this encounter No Functional Status Recorded Physical Exam Includes: Physical Exam from this encounter No Physical Exam Recorded Allergies Includes: Active Allergies Substance Type Reaction Onset Date Resolved Date Statu s Latex Gloves Allergy Skin Rashes / Er uption of skin, Hives / Urticaria 12/04/2019 Active Last Documented On 2 7:12AM ; [facility] Encounters Encounter Provider Location Date Check-In Time Check-Out Time Diagnosis Telemedicine New Patient Shayne Skelton MD [facility] 09/06/20 22 10:00AM 10:29AM Personal History of Colonic Polyps (use This One),Hemoccu lt Positive Stool Insurance Includes: Active Insurance Policies Plan Name Member ID Group # Subscriber Relationship Effect gibson Dates 1 - Medicare Part B [id number] Nury A Armando Self 2 - [facility] Blue Medicare Supplement [id number] 000 Nury A Armando Self Clinical Notes Includes: Clinical Notes from this encounter No Clinical Notes Recorded
[2024-05-15 12:00] LABS: Lyme Ab w Rflx to Lyme Confirm Negative (Negative)
[2024-05-17 23:51] LABS: Anaplasma phagocytophilum Negative (Negative); B. miyamotoi PCR Negative (Negative); Babesia divergens/MO-1 Negative (Negative); Babesia duncani Negative (Negative); Babesia microti Negative (Negative); Ehrlichia chaffeensis Negative (Negative); Ehrlichia ewingii/canis Negative (Negative); Ehrlichia muris eauclairensis Negative (Negative)
== END 2024-05-14 10:59 | disposition home or self-care (01) ==
LOC: NCHCN 10:58
PROVIDERS: PCP Family Medicine; Visit Provider Family Medicine
DX: S60.361A Insect bite (nonvenomous) of right thumb, initial encounter (principal); W57.XXXA Bitten or stung by nonvenomous insect and other nonvenomous arthropods, initial encounter
CPT/HCPCS: 87798; 86618